=== PATIENT | female | born 1960 | race Caucasian/White ===

== ENCOUNTER → 2020-09-19 10:06 | Outpatient (BNVA) | payer OTHER, SELFPAY | PROVIDERS: Visit Provider Nurse Practitioner Family | DX: I42.9 Cardiomyopathy, unspecified (principal); I11.0 Hypertensive heart disease with heart failure; I50.20 Unspecified systolic (congestive) heart failure; E66.9 Obesity, unspecified; Z68.33 Body mass index [BMI] 33.0-33.9, adult; E11.9 Type 2 diabetes mellitus without complications; Z71.3 Dietary counseling and surveillance | CPT/HCPCS: 99212 ==

== ENCOUNTER → 2021-02-05 08:19 | Outpatient (REF) | payer OTHER, SELFPAY ==
--- NOTE | 2021-02-05 08:23 | CA_ITS ---
Transthoracic Echocardiogram Patient (Last, First, Middle): Maria L Guy, Gender: Female Date of : 1960 Age: 61 Procedure Date: 02/05/2021 Procedure Type: Transthoracic Echocardiogram Location: OP Height: 162.56 cm Weight: 88. kg BSA: 1.93 m2 Heart Rate: bpm BP: 120 / 77 mmHg Metal Framer: JEYSON Referring MD: Thelma Wade ADMEASURER-Walter Symptoms: I42.9 - Cardiomyopathy, unspecified Conclusions: - 1. Low normal LV systolic function with mild LVH with impaired relaxation filling pattern 2. Mildly dilated left atrium 3. Normal cardiac valvular Doppler is 4. Mildly dilated ascending aorta 5. No pericardial effusion Findings Left Ventricle Normal left ventricular cavity size. There is mildly increased left ventricular wall thickness. The left ventricular systolic function is low normal. The visually estimated ejection fraction is between 50-55%. Spectral Doppler is indicative of an impaired relaxation filling pattern. E/E prime ratio is between 8 and 15 consistent with indeterminate filling pressures. Right Ventricle Normal right ventricular cavity size and systolic function. Atria The left atrium is mildly dilated. Interatrial shunt cannot be excluded. The right atrium is normal in size. Aortic Valve Normal aortic valve structure and function. There is no aortic valve stenosis. There is no aortic valve regurgitation. Mitral Valve There is mild anterior and posterior mitral leaflet thickening. There is trace mitral valve regurgitation. There is no mitral valve stenosis. Pulmonic Valve The pulmonic valve was not well visualized. Tricuspid Valve Likely normal tricuspid valve structure and function. Tricuspid regurgitation envelope is inadequate for calculation of right ventricular systolic pressure. Great Vessels The pulmonary artery was not well visualized. There is mild dilatation of the ascending aorta measuring 3.90 cm. Venous The inferior vena cava is normal in size and collapses greater than 50% with inspiration. Pericardium/Pleural There is no evidence of pericardial effusion. Prior Study Comparison No significant change compared to prior study dated: 02/19/2020. Measurements 2D Linear Measurements RVIDd: 3.27 RVIDd Index: 1.69 IVSd: 1.25 0.6-0.9/0.6-1.0 cm LVIDd: 4.68 3.9-5.3/4.2-5.9 cm LVIDd Index: 2.42 2.4-3.2/2.2-3.1 cm/m2 LVIDs: 3.12 2.0-3.6 cm LVPWd: 1.35 0.7-1.1 cm Ao Root: 2.80 2.1-3.5 cm LA Diam: 4.50 2.7-3.8/3.0-4.0 cm LAIDs Index: 2.33 1.5-2.3 cm/m2 LV Mass: 316.54 67-162/88-224 g LV Mass Index: 164.01 43-95/49-115 g/m2 LVOT Diam: 2.20 3.0+(-)1.3 cm 2D Systolic Function EF 4C: 50.70 >55% EF 2C: 55.70 >55% Mitral Valve MV Pk E: 0.54 MV PK A: 0.74 MV Decel Time: 280.00 E/A: 0.70 E'Lateral: 6.85 E'Medial: 3.26 E/E' Med: 16.70 E/E' Lat: 7.90 Aortic Valve AoV Pk William: 1.29 AoV Mn William: 0.93 AoV VTI: 0.23 AoV Pk Grad: 7.00 Aov Mn Grad: 4.00 LIZ Cont.VTI: 2.42 LVOT LVOT Pk William: 0.80 LVOT Mn William: 0.54 LVOT VTI: 0.14 LVOT Pk Grad: 3.00 LVOT Mn Grad: 1.00 LVOT Diam: 2.20 LVOT Area: 3.80 Diastolic Function MV Pk E: 0.54 MV Pk A: 0.74 E/A: 0.70 E'Medial: 3.26 E/E' Med: 16.70 E' Laterial: 6.85 E/E' Lat: 7.90 Right Ventricle TAPSE (mm): 17.00 TVS' William: 9.90 Tricuspid Valve RA Press: 3.00 Great Vessels Aorta Ao Root-2D: 2.80 2.0-3.7 cm Ao Asc: 3.90 2.1-3.4 cm Ao Arch: 2.50 Updated in Other Vendor System with Status of Final Donte Bautista MD electronically signed on 02/07/2021 9:08:13 AM with status of Final
== END ==
LOC: HO.CARD 08:19
PROVIDERS: Visit Provider Nurse Practitioner Family
DX: I42.9 Cardiomyopathy, unspecified (principal)
CPT/HCPCS: 93306

== ENCOUNTER → 2021-03-24 10:17 | Outpatient (BNVA) | payer OTHER, SELFPAY | PROVIDERS: PCP Family Medicine; Referring Provider Family Medicine; Visit Provider Internal Medicine Cardiovascular Disease | DX: I42.9 Cardiomyopathy, unspecified (principal); I50.20 Unspecified systolic (congestive) heart failure | CPT/HCPCS: 93005; 99212 ==

== ENCOUNTER 2021-03-26 09:15 | Outpatient (REF) | payer OTHER, SELFPAY ==
[2021-03-26 11:51] LABS: Anion Gap 17 (12-20); Blood Urea Nitrogen 17 mg/dL (9-16); Calcium 9.9 mg/dL (8.4-10.2); Carbon Dioxide 25 mmol/L (22-29); Chloride 96 mmol/L (96-108); Estimated Glomerular Filt Rate > 60; Glucose Random 458 mg/dL (60-115); Potassium 4.8 mmol/L (3.3-5.1); Sodium 133 mmol/L (135-145)
== END 2021-03-26 09:16 | disposition home or self-care (01) ==
LOC: HO.LAB 09:15
PROVIDERS: PCP Family Medicine; Visit Provider Internal Medicine Cardiovascular Disease
DX: I42.9 Cardiomyopathy, unspecified (principal)
CPT/HCPCS: 36415; 80048

== ENCOUNTER 2024-01-03 01:12 | Inpatient (IN) | payer OTHER, SELFPAY ==
[2024-01-03] VITALS (26 sets, daily range): BP systolic 60–142; BP diastolic 34–79; PULSE 86–118; RESP 12–20; TEMP 36.6–37.8; O2SAT 80–97; BMI 31.7; BMI 33.1
--- NOTE | 2024-01-03 | ECG_ITS ---
Test Reason : TACKY Blood Pressure : / mmHG Vent. Rate : 109 BPM Atrial Rate : 109 BPM P-R Int : 168 ms QRS Dur : 122 ms QT Int : 370 ms P-R-T Axes : 035 -68 090 degrees QTc Int : 498 ms Sinus tachycardia Possible Left atrial enlargement Left anterior fascicular block Left ventricular hypertrophy with QRS widening ( Abilio product ) Nonspecific ST abnormality Abnormal ECG When compared with ECG of 03-JUL-2016 17:03, Premature ventricular complexes are no longer Present Referred By: Generic ED Physician Electronically Signed By:Robbie Beyer
--- NOTE | ~2024-01-03 | XR_ITS ---
EXAMINATION: XR CHEST CLINICAL INFORMATION: Right chest/flank pain, rule out pneumonia COMPARISON: 07/03/2016 TECHNIQUE: Frontal view of the chest was obtained. FINDINGS: The lungs are hypoinflated. No focal consolidation is seen. No evidence of pneumothorax, significant pleural effusion, or overt pulmonary edema. Cardiomediastinal silhouette remains enlarged though may be accentuated due to low lung volumes. No acute osseous findings are seen. XR/XR chest 1V IMPRESSION: Low lung volumes without focal consolidation. Enlarged cardiomediastinal silhouette which may be accentuated due to low lung volumes.
--- NOTE | ~2024-01-03 | CT_ITS ---
EXAMINATION: CT ABDOMEN AND PELVIS WITHOUT IV CONTRAST CLINICAL INFORMATION: Right flank pain COMPARISON: None TECHNIQUE: Multiple axial images were obtained from the superior aspect of the liver through the pubic symphysis without intravenous contrast. Images were evaluated on independent dedicated 3-D workstation and 3-D images were reconstructed with concurrent radiologist supervision and subsequently interpreted. Oral contrast was not administered. This CT examination was performed using dose optimization techniques as appropriate, variously including the following: *Automated exposure control *Adjustment of mA and/or kV according to patient size (this includes techniques or standardized protocols for targeted exams where dose is matched to indication/reason for exam; i.e. extremities or head) *Use of iterative reconstruction technique DLP: 665 mGy-cm FINDINGS: LUNG BASES: The visualized lung bases are clear. CARDIOMEDIASTINUM: The visualized heart is normal in size without pericardial effusion. No coronary artery calcification. LIVER: Enlarged measuring 20 cm in the midclavicular line. Homogeneous in attenuation. GALLBLADDER: Ill-defined borders of the gallbladder is felt to be related to respiratory motion artifact. No cholelithiasis. BILIARY SYSTEM: No intrahepatic or extrahepatic biliary dilation. PANCREAS: Homogeneous in attenuation. SPLEEN: Normal in size. GENITOURINARY: Asymmetric enlargement of the right kidney. Right hydroureter with periureteral ureteral stranding throughout its entire course. No perinephric stranding. No perinephric fluid collection. No renal calculi. No renal calculi or hydroureteronephrosis on the left. Urinary bladder fluid-filled. ADRENAL GLANDS: Unremarkable. REPRODUCTIVE: Anteverted uterus. No solid adnexal masses. GASTROINTESTINAL: Hiatal hernia. The visualized alimentary tract is normal in course. No evidence of obstruction. APPENDIX: The appendix is not visualized; however, no pericecal inflammatory changes are seen in the right lower quadrant. PERITONEUM: No pneumoperitoneum. No intra-abdominal fluid collection. VASCULATURE: No abdominal aortic aneurysm. LYMPH NODES: No pathologically enlarged abdominal or pelvic lymph nodes. SOFT TISSUES/MUSCULOSKELETAL: There is no acute fracture or significant focal osseous lesion. CT/CT abdomen pelvis wo IV con IMPRESSION: 1. Right asymmetric hydroureter with periureteral stranding. No calcified obstructing calculus identified. 2. Hepatomegaly. Fleischner guidelines were followed.
--- NOTE | ~2024-01-03 | XR_ITS ---
EXAMINATION: XR CHEST CLINICAL INFORMATION: Hypoxia COMPARISON: Portable chest 01/03/2024 1:55 AM TECHNIQUE: AP upright portable view of the chest was obtained. 12:12 PM FINDINGS: The lungs are hypoinflated. The patient is tilted. No evidence of pneumothorax. The cardiomediastinal silhouette is without significant interval change. No focal consolidation or interstitial pulmonary edema is seen. There is no overt pleural effusion. No acute osseous abnormality. XR/XR chest 1V IMPRESSION: Low lung volumes without focal consolidation. No significant change in the cardiomediastinal silhouette.
--- NOTE | 2024-01-03 01:26 | ED_ITS ---
HPI - General Adult General Chief complaint: General Medical Stated complaint: NAUSEA/VOMITTING Time Seen by Provider: 01/03/24 01:26 Source: patient Mode of arrival: EMS Limitations: no limitations History of Present Illness ED Provider: Dr. George Castillo HPI narrative: 63-year-old female with a history of obesity, diabetes mellitus, hypertension, nonischemic cardiomyopathy, who presents emergency department by ambulance for evaluation of nausea, vomiting, right flank pain x3 days. The patient states that she has had intermittent, right flank pain that feels like someone is punching her in the back. The pain is 8/10. The patient had nausea with multiple episodes of vomiting over the last 3 days. She states that she has not been able to hold down food or fluid. Patient states she had loose stools but no diarrhea. She had subjective fever but no chills. She denied frequency, urgency or dysuria. She denied rhinorrhea, sore throat, cough, chest pain, shortness of breath or dyspnea on exertion. She has not noted any dark, black or bloody stools. Patient states she was feeling very weak and she believes that she was very dehydrated. The patient has a history of hypertension and diabetes but she states she is not taking any medications for these conditions. She states she only takes aspirin. Point of care glucose was 553. Related Data Home Medications ?Medication ?Instructions ?Recorded ?Confirmed ketorolac 0.5 % eye drops drp ophthalmic (eye) 03/26/21 Previous Rx's ?Medication ?Instructions ?Recorded spironolactone 25 mg tablet 25 mg PO DAILY #30 tabs 11/04/21 carvedilol 12.5 mg tablet 12.5 mg PO BID 90 days #180 tabs 12/09/21 valsartan 160 mg tablet 320 mg (2 x 160 mg) PO DAILY #180 05/11/22 tabs Allergies Allergy/AdvReac Type Severity Reaction Status Date / Time codeine [CODEINE] Allergy Unknown UNKNOWN Verified 01/03/24 01:22 metoprolol [Toprol XL] Allergy Unknown Unknown Verified 01/03/24 01:22 lisinopril Allergy Unknown Verified 01/03/24 01:23 mold Allergy runny Verified 01/03/24 01:22 nose, watery eyes ragweed pollen Allergy runny Verified 01/03/24 01:22 nose, watery eyes Codeine Allergy Unknown Unknown Uncoded 01/03/24 01:22 codine Allergy Unknown Unknown Uncoded 01/03/24 01:22 Cucumber Allergy Unknown Unknown Uncoded 01/03/24 01:22 Review of Systems 2 Review of Systems: Yes all other systems are reviewed and are negative [facility] Past Medical History [facility] Narrative: Social history: She denies tobacco and alcohol use. She states she smokes marijuana occasionally. Medical History (Updated 01/03/24 @ 04:37 by George Castillo MD) Obesity Systolic heart failure Diabetes HTN (hypertension) Cardiomyopathy Surgical History (Updated 03/26/21 @ 10:26 by [employer]) History of appendectomy History of tonsillectomy History of hernia surgery Family History Family History Father Cancer Mother No problems noted. Social History Social History (Updated 03/26/21 @ 10:27 by [employer]) Household Members: Spouse Housing: Apartment Patient Tobacco Use Status: Never used Tobacco Smoked in Last 30 Days: No e-Cigarette/Vaping Use: Never Used Use of substances other than those prescribed or required for medical reasons: No Advance Directives: No Advance Directives Information Provided: Yes Current occupational status: unemployed Physical Exam ED Vital Signs: Vital Signs - 24 hr 01/03/24 01:20 01/03/24 02:25 01/03/24 02:26 Temperature 99 F Pulse Rate 108 H 105 H Respiratory Rate 15 20 Blood Pressure 128/66 108/61 Pulse Oximetry 93 84 L 95 Oxygen Delivery Method Room Air Room Air Nasal Cannula Oxygen Flow Rate 2 01/03/24 02:36 01/03/24 02:51 01/03/24 03:06 Temperature Pulse Rate 104 H 105 H 101 H Respiratory Rate 12 20 15 Blood Pressure 114/55 L 113/66 123/74 Pulse Oximetry 96 93 97 Oxygen Delivery Method Nasal Cannula Nasal Cannula Nasal Cannula Oxygen Flow Rate 2 2 2 01/03/24 03:21 01/03/24 03:36 01/03/24 03:51 Temperature 98.9 F Pulse Rate 106 H 104 H 105 H Respiratory Rate 15 20 18 Blood Pressure 131/76 138/76 116/59 L Pulse Oximetry 96 96 96 Oxygen Delivery Method Nasal Cannula Nasal Cannula Nasal Cannula Oxygen Flow Rate 2 2 2 01/03/24 04:01 Temperature Pulse Rate Respiratory Rate Blood Pressure 115/53 L Pulse Oximetry Oxygen Delivery Method Oxygen Flow Rate BMI result Body Mass Index 31.7 Vital signs revealed elevated heart rate of 108 otherwise unremarkable Exam: General: Awake, alert in no distress, answers all questions appropriately Head: Normocephalic, atraumatic EENT: PERRL, Lids normal, sclera normal, conjunctiva normal, nose normal , ears normal, throat without erythema or exudates, mouth revealed very dry mucous membranes Neck: Supple, no adenopathy Lung: breath sounds symmetric, no wheezing, rales or rhonchi Chest: symmetric movement, nontender Heart: regular rate and rhythm, normal S1, S2 no murmurs or rubs Abdomen: soft, non-tender, nondistended, normal bowel sounds Back: no vertebral tenderness, no CVAT Extremities: no deformities, moves all extremities symmetrically Neuro: Awake, alert, oriented, normal speech, cranial nerves intact, moves all extremities symmetrically Psych: Pleasant, cooperative Medications Administered Discontinued Medications Generic Name Dose Route Start Last Admin Trade Name Jamesq PRN Reason Stop Dose Admin Lactated Ringer's 1,000 mls @ 999 mls/hr 01/03/24 01:43 01/03/24 03:49 Lr IV 01/03/24 02:43 Infused .Q1H1M ONE Infusion Lactated Ringer's 1,000 mls @ 999 mls/hr 01/03/24 01:43 01/03/24 03:49 Lr IV 01/03/24 02:43 Infused .Q1H1M ONE Infusion Ceftriaxone Sodium 1 gm/ 50 mls @ 100 mls/hr 01/03/24 02:29 01/03/24 03:04 Sodium Chloride IV 01/03/24 02:58 Infused ONCE ONE Infusion Lactated Ringer's 1,000 mls @ 999 mls/hr 01/03/24 03:15 01/03/24 03:49 Lr IV 01/03/24 04:15 Infused .Q1H1M CHRIS Infusion Insulin Human Regular 10 unit 01/03/24 01:44 01/03/24 01:59 Insulin Regular, Human 100 Unit/Ml 10 Ml Vial IVPUSH 01/03/24 01:45 10 unit ONCE ONE Administration Insulin Human Regular 10 unit 01/03/24 03:04 01/03/24 03:14 Insulin Regular, Human 100 Unit/Ml 10 Ml Vial IVPUSH 01/03/24 03:05 10 unit ONCE ONE Administration Ketorolac Tromethamine 15 mg 01/03/24 01:41 01/03/24 02:00 Ketorolac Tromethamine 15 Mg/Ml Vial IVPUSH 01/03/24 01:42 15 mg ONCE STA Administration Ondansetron HCl 4 mg 01/03/24 01:41 01/03/24 02:03 Ondansetron Hcl 4 Mg/2 Ml Vial IVPUSH 01/03/24 01:42 4 mg ONCE ONE Administration Medical Decision Making Medical Decision Making MDM Narrative: 63-year-old female with a history of obesity, diabetes mellitus, hypertension, nonischemic cardiomyopathy, who presents emergency department by ambulance for evaluation of nausea, vomiting, right flank pain x3 days. Patient has had multiple episodes of vomiting over the past 3 days and not able to hold down any food or fluid. She has also had intermittent right flank pain x3 days with no frequency, urgency or dysuria. She had subjective fevers. She has been feeling very weak as well. The patient is not taking any medications for hypertension or diabetes and states she only takes aspirin. Patient's point of care glucose was 553. Physical examination revealed elevated heart rate otherwise normal vital signs . The patient has very dry mucous membranes with no abdominal tenderness or CVA tenderness. 02:57: Differential diagnosis: ?Includes but is not limited to hyperglycemia, diabetic ketoacidosis, starvation ketosis, volume depletion, dehydration, kidney stone, urinary tract infection, pneumonia, electrolyte abnormalities, anemia\ Following evaluation was ordered: CBC, CMP, lactic acid, lipase, beta hydroxybutyrate, magnesium, PTT, VBG, troponin, urinalysis, COVID-19, influenza, RSV, blood cultures x2 chest x-ray one view, CT scan of the abdomen pelvis without IV contrast Patient was initially treated with the following: Lactated Ringer's IV x2 L, Toradol 15 mg IV, Zofran 4 mg IV, insulin 10 units IV, Course: 02:57 My interpretation patient's laboratory evaluation is as follows: WBC elevated 18,700 with a left shift 92 neutrophils and 4 lymphocytes. VBG revealed a normal pH of 7.40 and a normal pCO2 of 32 with a slightly low bicarb of 20. Sodium was low 133 secondary to high glucose. CO2 low 19. Anion gap elevated at 27. BUN and creatinine were elevated 19 and 1.43. Serum glucose elevated 637. Lactic acid was elevated 2.3. This lactic acid is elevated secondary to starvation ketosis and not due to an infectious process. Beta hydroxybutyrate was elevated at 5.20. COVID-19, influenza and RSV were negative. Troponin was detectable but not elevated at 6.8. Chest x-ray did reveal cardiomegaly with loss of the left diaphragm however I do not think that she has pneumonia based on her clinical symptoms. CT scan did reveal right asymmetry hydroureter with periureteral stranding but no calcification noted. It is possible the patient may have passed a kidney stone. Patient did receive ceftriaxone 1 g IV, we have not been able to collect a urine yet but this may be due to dehydration/volume depletion. Repeat point of care glucose was 553 therefore I ordered a third lactated Ringer's 1 L IV and regular insulin 10 units IV. 04:19 Patient's repeat troponin was 7.1 which was not a significant change. Patient's repeat BMP revealed a glucose of 472. Patient's anion gap improved from 27 to 21. Patient's creatinine also improved to 1.19. Given these improvements,, I ordered insulin 10 units IV and repeat point of care glucose in 1 hours. I also ordered maintenance lactated Ringer's at 125 cc/hour. Admission/Observation Consideration of admission/observation: Escalation of care including admission/observation considered Lab Data MDM Lab Attestation statement: I reviewed the patient's lab results. 01/03/24 02:07 01/03/24 03:50 Labs: Lab Results 01/03/24 01/03/24 01/03/24 Range/Units 01:19 02:07 02:12 WBC 18.7 H (4.8-10.8) X10*3/uL RBC 4.72 (4.20-5.50) X10*6/uL Hgb 13.6 (12.0-16.0) g/dl Hct 40.3 (37.0-47.0) % MCV 85.4 (80.0-98.0) fL MCH 28.8 (27.0-33.0) pg MCHC 33.7 (31.0-35.0) g/dl RDW 15.4 (11.0-16.0) % Plt Count 282 (160-400) X10*3/uL MPV 10.2 (9.4-12.3) fL Immature Gran % (Auto) 1.1 H (0.0-0.4) % Neut % (Auto) 92.2 H (45-73) % Lymph % (Auto) 4.0 L (20-40) % Mckean % (Auto) 2.4 (2-11) % Eos % (Auto) 0.0 (0-4) % Baso % (Auto) 0.3 (0-2) % Lymph # (Auto) 0.8 L (1.2-4.9) X10*3/uL Mckean # (Auto) 0.5 (0.1-1.2) X10*3/uL Eos # (Auto) 0.0 (0.0-0.4) X10*3/uL Baso # (Auto) 0.1 (0.0-0.2) X10*3/uL Abs Immat Gran (auto) 0.20 H (0.00-0.03) X10*3/uL Absolute Neuts (auto) 17.3 H (2.0-8.3) x10*3/uL Absolute Nucleated RBC 0.000 (0.0-0.012) X10*3/uL Nucleated RBC % (auto) 0.0 (0.0-0.2) /100WBC Smear Tech's Comments VERIFIED APTT 26.3 (26.0-36.8) SEC VBG pH 7.40 (7.32-7.43) VBG pCO2 32 mmHg VBG pO2 57 mmHg VBG HCO3 20 L (22-26) mmol/L VBG O2 Saturation 86.0 % VBG Base Excess -3.7 mmol/L Sodium 133 L (135-145) mmol/L Potassium 4.2 (3.3-5.1) mmol/L Chloride 91 L (96-108) mmol/L Carbon Dioxide 19 L (22-29) mmol/L Anion Gap 27 H (12-20) BUN 19 H (9-16) mg/dL Creatinine 1.43 H (0.5-1.4) mg/dL Estim Creat Clear Calc 43.3 Estimated GFR 37 POC Glucose 581 H* (60-115) mg/dL Random Glucose 637 H* (60-115) mg/dL Lactic Acid 2.3 H* (0.5-2.0) mmol/L Calcium 9.4 (8.4-10.2) mg/dL Magnesium 1.8 (1.6-2.6) mg/dL Total Bilirubin 0.6 (0.0-1.0) mg/dL AST 10 (5-31) U/L ALT 8 (0-31) U/L Alkaline Phosphatase 124 H (39-117) U/L Troponin I High Sens 6.8 (<3.5-17.0) ng/L Total Protein 7.3 (6.5-8.0) g/dL Albumin 3.5 (3.5-5.0) g/dL Lipase 11 (8-78) U/L Beta-Hydroxybutyrate 5.20 H (0.02-0.27) mmol/L Influenza Type A (PCR) (Negative) Influenza Type B (PCR) (Negative) RSV RNA Qual (PCR) (Negative) SARS-CoV-2 RNA (RT-PCR) (Negative) 01/03/24 01/03/24 Range/Units 02:16 03:50 WBC (4.8-10.8) X10*3/uL RBC (4.20-5.50) X10*6/uL Hgb (12.0-16.0) g/dl Hct (37.0-47.0) % MCV (80.0-98.0) fL MCH (27.0-33.0) pg MCHC (31.0-35.0) g/dl RDW (11.0-16.0) % Plt Count (160-400) X10*3/uL MPV (9.4-12.3) fL Immature Gran % (Auto) (0.0-0.4) % Neut % (Auto) (45-73) % Lymph % (Auto) (20-40) % Mckean % (Auto) (2-11) % Eos % (Auto) (0-4) % Baso % (Auto) (0-2) % Lymph # (Auto) (1.2-4.9) X10*3/uL Mckean # (Auto) (0.1-1.2) X10*3/uL Eos # (Auto) (0.0-0.4) X10*3/uL Baso # (Auto) (0.0-0.2) X10*3/uL Abs Immat Gran (auto) (0.00-0.03) X10*3/uL Absolute Neuts (auto) (2.0-8.3) x10*3/uL Absolute Nucleated RBC (0.0-0.012) X10*3/uL Nucleated RBC % (auto) (0.0-0.2) /100WBC Smear Tech's Comments APTT (26.0-36.8) SEC VBG pH (7.32-7.43) VBG pCO2 mmHg VBG pO2 mmHg VBG HCO3 (22-26) mmol/L VBG O2 Saturation % VBG Base Excess mmol/L Sodium 137 (135-145) mmol/L Potassium 3.6 (3.3-5.1) mmol/L Chloride 97 (96-108) mmol/L Carbon Dioxide 23 (22-29) mmol/L Anion Gap 21 H (12-20) BUN 18 H (9-16) mg/dL Creatinine 1.19 (0.5-1.4) mg/dL Estim Creat Clear Calc 51.9 Estimated GFR 46 POC Glucose (60-115) mg/dL Random Glucose 472 H* (60-115) mg/dL Lactic Acid (0.5-2.0) mmol/L Calcium 8.5 D (8.4-10.2) mg/dL Magnesium (1.6-2.6) mg/dL Total Bilirubin (0.0-1.0) mg/dL AST (5-31) U/L ALT (0-31) U/L Alkaline Phosphatase (39-117) U/L Troponin I High Sens 7.1 (<3.5-17.0) ng/L Total Protein (6.5-8.0) g/dL Albumin (3.5-5.0) g/dL Lipase (8-78) U/L Beta-Hydroxybutyrate (0.02-0.27) mmol/L Influenza Type A (PCR) NEGATIVE (Negative) Influenza Type B (PCR) NEGATIVE (Negative) RSV RNA Qual (PCR) NEGATIVE (Negative) SARS-CoV-2 RNA (RT-PCR) NEGATIVE (Negative) Independent Interpretation I performed an independent interpretation of an: EKG and Plain X-Ray Interpretation: My independent interpretation of the patient's 12 EKG done at 01:27 hours is as follows: Sinus tachycardia with a rate of 109, normal [place] interval, prolonged QRS interval of 122 milliseconds, prolonged QTC interval of 498 milliseconds, Q- wave in lead 2, no ST segment elevation, less than [address] segment depression in leads 1 and aVL, no significant T-wave abnormalities, no PACs, no PVCs My interpretation patient's one-view chest x-ray is as follows: Large cardiac silhouette with loss of left diaphragm silhouette, no CHF Radiology Impression Discussion of test interpretation with radiology: I have reviewed the radiologist's reading. Radiologist Impression: XR chest 1V IMPRESSION: Low lung volumes without focal consolidation. Enlarged cardiomediastinal silhouette which may be accentuated due to low lung volumes. Dictated By: Allen Topete MD Critical Care Time Critical Care Time Critical Care Time: Yes Total Critical Care Time: 80 Attestation: Critical Care: The patient was critically ill with a high probability of imminent or life threatening deterioration. I spent greater than 30 minutes of discontinuous time evaluating the patient,delivering critical care at the bedside, discussing and evaluating pertinent data with consultants. Critical care time does not include time spent performing separately billable procedures or teaching. Total time spent performing critical care was 80 minutes. Discharge Plan Discharge Patient Disposition: Admitted As Inpatient Prescriptions: No Action spironolactone 25 mg tablet 25 mg PO DAILY Qty: 30 5RF carvedilol 12.5 mg tablet 12.5 mg PO BID 90 Days Qty: 180 3RF valsartan 160 mg tablet 320 mg PO DAILY Qty: 180 1RF Rx Instructions: OVERDUE FOR FOLLOW-UP WITH Dr. Bautista. CALL [phone] to schedule appt for 2022 to continue receiving refills. Print Language: Latvian
[2024-01-03 01:28] LABS: Glucose, Whole Blood 581 mg/dL (60-115)
[2024-01-03] MEDS: Insulin Regular, Human 100 UNIT/ML 10 ML VIAL 10 UNIT IVPUSH ×3 (01:59→04:28)
[2024-01-03] MEDS: Ketorolac Tromethamine 15 MG/ML VIAL IVPUSH ×2 (02:00→08:06)
[2024-01-03] MEDS: Lactated Ringers 1,000 ML 999 ML IV ×3 (02:03→03:11)
[2024-01-03] MEDS: ondansetron HCL 4 MG/2 ML VIAL IVPUSH ×2 (02:03→19:43)
--- NOTE | 2024-01-03 02:15 | PC.NURSE ---
pt biba from home reporting n/v x 3 days, R. flank/lower back pain. pt denies injury. pt denies cp/sob/diarrhea. reporting no hx of diabetes, does not take any meds at home. ems reports elevated BGL, on arrival poc obtained and reading 581. made aware. pt has 18g IV L. AC received approx 400mL NS and 4mg Zofran via ems. pt medicated per aug, md ok another dose of zofran as pt continues to report nausea. IVF infusing. ivp insulin given per aug. blood work obtained and sent to lab. ekg obtained. pt is axox4 speaking full clear sentences. skin wpd. sinus tachy on monitor. call burleson within reach. plan of care ongoing.
[2024-01-03 02:18] LABS: Basophils Absolute Auto 0.1 X10*3/uL (0.0-0.2); Basophils Percent Auto 0.3 % (0-2); Hematocrit 40.3 % (37.0-47.0); Hemoglobin 13.6 g/dl (12.0-16.0); Imm Gran Pct Auto 1.1 % (0.0-0.4); Lymphocytes Absolute Auto 0.8 X10*3/uL (1.2-4.9); MANUAL DIFF FLAG SCAN; Mean Corpuscular HGB Conc 33.7 g/dl (31.0-35.0); Mean Corpuscular Hemoglobin 28.8 pg (27.0-33.0); Mean Corpuscular Volume 85.4 fL (80.0-98.0); Mean Platelet Volume 10.2 fL (9.4-12.3); Monocytes Absolute Auto 0.5 X10*3/uL (0.1-1.2); Monocytes Percent Auto 2.4 % (2-11); Neutrophils Absolute Auto 17.3 x10*3/uL (2.0-8.3); Neutrophils Percent Auto 92.2 % (45-73); Platelet Count 282 X10*3/uL (160-400); Red Blood Count 4.72 X10*6/uL (4.20-5.50); Red Cell Distribution Width 15.4 % (11.0-16.0); SCAN SMEAR FLAG 1; Venous Blood Gas Refer to POC result; White Blood Count 18.7 X10*3/uL (4.8-10.8)
[2024-01-03 02:25] LABS: VBG Base Excess -3.7 mmol/L; VBG HCO3 20 mmol/L (22-26); VBG pCO2 32 mmHg; VBG pO2 57 mmHg
--- NOTE | 2024-01-03 02:25 | PC.NURSE ---
pt is axox4 speaking full clear sentences however o2 on RA 84%. pt placed on 2L NC and sats up to 95%. MD aware. pt denies cp/sob. diminished lung sounds to R. lower lobe.
[2024-01-03 02:29] LABS: Partial Thromboplastin Time 26.3 SEC (26.0-36.8)
[2024-01-03] MEDS: cefTRIAXone sodium 1 GM in 0.9 % Sodium Chloride 50 ML IV (02:34)
[2024-01-03 02:36] LABS: Alanine Aminotransferase 8 U/L (0-31); Albumin Level 3.5 g/dL (3.5-5.0); Alkaline Phosphatase 124 U/L (39-117); Anion Gap 27 (12-20); Aspartate Amino Transferase 10 U/L (5-31); Bilirubin Total 0.6 mg/dL (0.0-1.0); Blood Urea Nitrogen 19 mg/dL (9-16); Calcium 9.4 mg/dL (8.4-10.2); Carbon Dioxide 19 mmol/L (22-29); Chloride 91 mmol/L (96-108); Creatinine Clr Calc Pharmacy 43.3; Estimated Glomerular Filt Rate 37; Glucose Random 637 mg/dL (60-115); Lactic Acid 2.3 mmol/L (0.5-2.0); Lipase 11 U/L (8-78); Magnesium 1.8 mg/dL (1.6-2.6); Potassium 4.2 mmol/L (3.3-5.1); SLIDE REVIEW VERIFIED; Sodium 133 mmol/L (135-145); Total Protein 7.3 g/dL (6.5-8.0)
[2024-01-03 02:39] LABS: Troponin-I High Sensitivity 6.8 ng/L (<3.5-17.0)
--- NOTE | 2024-01-03 02:45 | PC.NURSE ---
IV abx incompatible with ivf. 2nd IV established to R. forearm. ivf and abx infusing per mar. critical lab values reported to
[2024-01-03 02:59] LABS: Influenza A PCR NEGATIVE (Negative); Influenza B PCR NEGATIVE (Negative); Resp Syncy Virus RNA Qual PCR NEGATIVE (Negative); SARS COV2 PCR INHOUSE NEGATIVE (Negative)
[2024-01-03 04:13] LABS: Reflex Lactate? Lactic Acid Added
[2024-01-03 04:15] LABS: Anion Gap 21 (12-20); Blood Urea Nitrogen 18 mg/dL (9-16); Calcium 8.5 mg/dL (8.4-10.2); Carbon Dioxide 23 mmol/L (22-29); Chloride 97 mmol/L (96-108); Creatinine Clr Calc Pharmacy 51.9; Estimated Glomerular Filt Rate 46; Glucose Random 472 mg/dL (60-115); Potassium 3.6 mmol/L (3.3-5.1); Sodium 137 mmol/L (135-145); Troponin-I High Sensitivity 7.1 ng/L (<3.5-17.0)
[2024-01-03] MEDS: Lactated Ringers 1,000 ML 125 ML IV (04:35)
[2024-01-03 04:41] LABS: Glucose, Whole Blood 492 mg/dL (60-115)
[2024-01-03 04:41] LABS: Glucose, Whole Blood 581 mg/dL (60-115)
[2024-01-03 04:41] LABS: Glucose, Whole Blood 505 mg/dL (60-115)
[2024-01-03 04:41] LABS: Glucose, Whole Blood 462 mg/dL (60-115)
[2024-01-03 04:41] LABS: Glucose, Whole Blood 454 mg/dL (60-115)
--- NOTE | 2024-01-03 04:51 | PM.IMHP ---
History of Present Illness Date of Service: 01/03/24 Attending physician on admission: Ramon Jackson Chief Complaint: Right flank pain Maria L Guy is a 63 years old woman with past medical history significant for type 2 diabetes mellitus and hypertension -not currently taking/using medication for this presents to the emergency department complaining of posterior round pain that started 2 days ago. She said that the pain has been on and off but tonight was very intense, 10/10. The pain does not radiate and is associated with multiple events of nonbloody vomiting and dizziness. She denied associated pain with urination, urinary frequency or bloody urine. She denies fever or chills. She has been taking aspirin at home without significant improvement of the pain. Denied being taking Tylenol or any other NSAIDs. Cardiopulmonary symptoms were denied. She denied tobacco smoking, alcohol abuse or illicit drug use. Abdominal surgery history is remarkable for appendectomy and hernia surgery. In the ED, she was found to have tachycardia. There is low-grade fever, 100.1. Systolic blood pressure has been over 90. Blood workup is remarkable for leukocytosis of 18.7. Hemoglobin and platelets are normal. PTT is 26.3. Blood glucose was initially 637. Initial bicarb was 19, most recent is 23. Anion gap was 27 initially, most recent one is 21. There are no other electrolyte imbalances. Lipase is normal. Creatinine is also improving from 1.43 to 1.19. Lactic acid is increasing 2.3 --> 3.5. Venous pH is 7.40. Troponin is negative x2. Beta hydroxybutyric is elevated, 5.2. Urinalysis consistent with urinary tract infection. Viral testing for COVID-19, influenza RSV is negative. CXR is negative. Abdominal pelvis CT scan with IV contrast showed right asymmetric treated with periureteral stranding (no obstructing renal calculi) and hepatomegaly. ED tx: LR 3 L bolus, ceftriaxone 1 g IV, ketorolac 15 mg IV, Zofran 4 mg IV, insulin R 30 units IV (total) Review of Systems Review of Systems: All 12 systems were reviewed and normal except as noted in HPI. [facility] Medical History (Updated 01/03/24 @ 06:10 by Ramon Jackson MD) Obesity Systolic heart failure Diabetes HTN (hypertension) Cardiomyopathy Family History Father Cancer Mother No problems noted. Surgical History (Updated 03/26/21 @ 10:26 by [place]) History of appendectomy History of tonsillectomy History of hernia surgery Social History (Updated 03/26/21 @ 10:27 by [employer] Jame) Household Members: Spouse Housing: Apartment Patient Tobacco Use Status: Never used Tobacco Smoked in Last 30 Days: No e-Cigarette/Vaping Use: Never Used Use of substances other than those prescribed or required for medical reasons: No Advance Directives: No Advance Directives Information Provided: Yes Current occupational status: unemployed Meds Allergies Allergy/AdvReac Type Severity Reaction Status Date / Time codeine [CODEINE] Allergy Unknown UNKNOWN Verified 01/03/24 01:22 metoprolol [Toprol XL] Allergy Unknown Unknown Verified 01/03/24 01:22 lisinopril Allergy Unknown Verified 01/03/24 01:23 mold Allergy runny Verified 01/03/24 01:22 nose, watery eyes ragweed pollen Allergy runny Verified 01/03/24 01:22 nose, watery eyes Codeine Allergy Unknown Unknown Uncoded 01/03/24 01:22 codine Allergy Unknown Unknown Uncoded 01/03/24 01:22 [place] Allergy Unknown Unknown Uncoded 01/03/24 01:22 Active Medications: Current Medications Lactated Ringer's (Lr) 1,000 mls @ 125 mls/hr IV .Q8H [facility] Stop: 01/03/24 12:29 Last Admin: 01/03/24 04:35 Dose: 125 mls/hr Lactated Ringer's (Lr) 1,000 mls @ 100 mls/hr IVCONT .Q10H [facility] Insulin Glargine (Insulin Glargine,Hum.Rec.Anlog 100 Unit/Ml 10 Ml Vial) 20 unit SUBCUT DAILY CHRIS Insulin Human Lispro (Insulin Lispro 100 Unit/Ml 3 Ml Vial) 10 unit SUBCUT ONCE STA Stop: 01/03/24 04:48 Home Medications ?Medication ?Instructions ?Recorded ?Confirmed ?Last Taken ?Type ketorolac 0.5 % eye drops drp ophthalmic (eye) 03/26/21 Unknown History Physical Exam Vital Signs and Narrative: Vital Signs: Last Vital Signs Temp 99 F 01/03/24 04:37 Pulse 105 H 01/03/24 04:37 Resp 20 01/03/24 04:37 BP 97/50 L 01/03/24 04:37 Pulse Ox 95 01/03/24 04:37 O2 Del Method Nasal Cannula 01/03/24 04:37 O2 Flow Rate 2 01/03/24 04:37 BMI result Body Mass Index 31.7 Constitutional - Awake and Alert, No apparent distress. Obese. Pleasant. Cooperative. HEENT - PERRLA, EOMI. Dry oral mucosa. Normal sclerae. Heart - S1S2, RRR, No murmur. Lungs - Normal lung expansion, Normal respiratory effort, No respiratory distress, CTA bilaterally Abdomen - NT / ND; +BS; No rebound or guarding - Right CVA tenderness Extremities - No calf tenderness bilaterally, no swelling Skin - Warm/Dry Neurological - Alert & oriented x3. No focal weakness grossly noted. Normal speech. Psychological - Appropriate affect Results Labs 01/03/24 02:07 01/03/24 03:50 Labs: Laboratory Results - last 24 hr 01/03/24 01/03/24 01/03/24 01:19 02:07 02:12 MCV 85.4 MCH 28.8 MCHC 33.7 RDW 15.4 Plt Count 282 MPV 10.2 Immature Gran % (Auto) 1.1 H Neut % (Auto) 92.2 H Lymph % (Auto) 4.0 L [place] % (Auto) 2.4 Eos % (Auto) 0.0 Baso % (Auto) 0.3 Lymph # (Auto) 0.8 L [place] # (Auto) 0.5 Eos # (Auto) 0.0 Baso # (Auto) 0.1 Abs Immat Gran (auto) 0.20 H Absolute Neuts (auto) 17.3 H Absolute Nucleated RBC 0.000 Nucleated RBC % (auto) 0.0 Smear Tech's Comments VERIFIED APTT 26.3 VBG pH 7.40 VBG pCO2 32 VBG pO2 57 VBG HCO3 20 L VBG O2 Saturation 86.0 VBG Base Excess -3.7 Anion Gap 27 H Estim Creat Clear Calc 43.3 Estimated GFR 37 POC Glucose 581 H* Random Glucose 637 H* Lactic Acid 2.3 H* Calcium 9.4 Magnesium 1.8 Total Bilirubin 0.6 AST 10 ALT 8 Alkaline Phosphatase 124 H Troponin I High Sens 6.8 Total Protein 7.3 Albumin 3.5 Lipase 11 Beta-Hydroxybutyrate 5.20 H Influenza Type A (PCR) Influenza Type B (PCR) RSV RNA Qual (PCR) SARS-CoV-2 RNA (RT-PCR) 01/03/24 01/03/24 01/03/24 02:16 02:27 03:01 MCV MCH MCHC RDW Plt Count MPV Immature Gran % (Auto) Neut % (Auto) Lymph % (Auto) [place] % (Auto) Eos % (Auto) Baso % (Auto) Lymph # (Auto) [place] # (Auto) Eos # (Auto) Baso # (Auto) Abs Immat Gran (auto) Absolute Neuts (auto) Absolute Nucleated RBC Nucleated RBC % (auto) Smear Tech's Comments APTT VBG pH VBG pCO2 VBG pO2 VBG HCO3 VBG O2 Saturation VBG Base Excess Anion Gap Estim Creat Clear Calc Estimated GFR POC Glucose 581 H* 505 H* Random Glucose Lactic Acid Calcium Magnesium Total Bilirubin AST ALT Alkaline Phosphatase Troponin I High Sens Total Protein Albumin Lipase Beta-Hydroxybutyrate Influenza Type A (PCR) NEGATIVE Influenza Type B (PCR) NEGATIVE RSV RNA Qual (PCR) NEGATIVE SARS-CoV-2 RNA (RT-PCR) NEGATIVE 01/03/24 01/03/24 01/03/24 03:33 03:50 03:59 MCV MCH MCHC RDW Plt Count MPV Immature Gran % (Auto) Neut % (Auto) Lymph % (Auto) [place] % (Auto) Eos % (Auto) Baso % (Auto) Lymph # (Auto) [place] # (Auto) Eos # (Auto) Baso # (Auto) Abs Immat Gran (auto) Absolute Neuts (auto) Absolute Nucleated RBC Nucleated RBC % (auto) Smear Tech's Comments APTT VBG pH VBG pCO2 VBG pO2 VBG HCO3 VBG O2 Saturation VBG Base Excess Anion Gap 21 H Estim Creat Clear Calc 51.9 Estimated GFR 46 POC Glucose 492 H* 462 H* Random Glucose 472 H* Lactic Acid Calcium 8.5 D Magnesium Total Bilirubin AST ALT Alkaline Phosphatase Troponin I High Sens 7.1 Total Protein Albumin Lipase Beta-Hydroxybutyrate Influenza Type A (PCR) Influenza Type B (PCR) RSV RNA Qual (PCR) SARS-CoV-2 RNA (RT-PCR) 01/03/24 04:29 MCV MCH MCHC RDW Plt Count MPV Immature Gran % (Auto) Neut % (Auto) Lymph % (Auto) [place] % (Auto) Eos % (Auto) Baso % (Auto) Lymph # (Auto) [place] # (Auto) Eos # (Auto) Baso # (Auto) Abs Immat Gran (auto) Absolute Neuts (auto) Absolute Nucleated RBC Nucleated RBC % (auto) Smear Tech's Comments APTT VBG pH VBG pCO2 VBG pO2 VBG HCO3 VBG O2 Saturation VBG Base Excess Anion Gap Estim Creat Clear Calc Estimated GFR POC Glucose 454 H* Random Glucose Lactic Acid Calcium Magnesium Total Bilirubin AST ALT Alkaline Phosphatase Troponin I High Sens Total Protein Albumin Lipase Beta-Hydroxybutyrate Influenza Type A (PCR) Influenza Type B (PCR) RSV RNA Qual (PCR) SARS-CoV-2 RNA (RT-PCR) Imaging Radiologist's Impressions: Impressions Abdomen/Pelvis CT 01/03/24 01:54 IMPRESSION: 1. Right asymmetric hydroureter with periureteral stranding. No calcified obstructing calculus identified. 2. Hepatomegaly. Fleischner guidelines were followed. Chest X-Ray 01/03/24 01:55 IMPRESSION: Low lung volumes without focal consolidation. Enlarged cardiomediastinal silhouette which may be accentuated due to low lung volumes. Assessment and Plan (1) Acute pyelonephritis: Status: Acute (2) Severe sepsis: Status: Acute (3) Uncontrolled type 2 diabetes mellitus with hyperglycemia: Status: Acute (4) Obesity: Qualifiers: Obesity type: due to excess calories Obesity classification: adult class 1 (BMI 30 - 34.9) Body mass index: BMI 31.0-31.9 Serious obesity comorbidity presence: with serious comorbidity Qualified Code(s): E66.09 - Other obesity due to excess calories; Z68.31 - Body mass index [BMI] 31.0-31.9, adult Status: Acute Plan Maria L Guy is a 63 y/o woman admitted with: Severe sepsis secondary to pyelonephritis/complicated UTI: Leukocytosis, tachycardia, lactic acidosis, UA + Abd pelvic -findings consistent with UTI. Admit to hospitalist service. Continue empiric IV antibiotic therapy with ceftriaxone. Continue IV fluids (pt has received total 3 L of LR in ED). Blood and urine culture obtained -will follow results. Continue to monitor lactic acid level. Nausea and vomiting, likely secondary to acute pyelonephritis. Continue IV fluids. Continue therapy with antiemetic therapy as needed. Lactic acidosis, trending up; secondary to above. Continue IV fluids, normal saline. Continue to monitor lactic acid level. Uncontrolled type 2 diabetes mellitus, no DKA. Continue IV fluids. Start therapy with Lantus 20 units subQ daily, 1st dose now and insulin sliding scale. BG monitoring before meals at bedtime. Diabetic diet. Check Hbg A1c. Patient will need diabetes mellitus education. History of essential hypertension, not taking anti-HTN meds at the moment. BP stable. Continue to monitor for now. Obesity, class 1. BMI 37.7 kg/m2. Encourage weight loss. DVT prophylaxis: Lovenox Code status: Full Patient will need hospitalization for at least 2 midnights for severe sepsis + pyelonephritis complicated with uncontrolled type 2 diabetes mellitus with IV fluids, empiric IV antibiotic therapy, insulin and close monitoring of vital signs and blood workup. Quality Stroke Does the patient have a stroke diagnosis?: No VTE Prior VTE?: No VTE Risk Level:: Medical - moderate - high VTE Device Contraindication: Treatment Not Indicated VTE Drug Contraindication: N/A - Med Ordered
[2024-01-03 04:55] LABS: ~Lactic Acid-LAB USE ONLY 3.5 mmol/L (0.5-2.0)
[2024-01-03] MEDS: Insulin Glargine,Hum.rec.anlog 100 UNIT/ML 10 ML VIAL 20 UNIT SUBCUT (05:21)
[2024-01-03 05:32] LABS: Appearance Urine Turbid; Color Urine Yellow; Glucose Urine UA >=1000 mg/dL (Negative); Leukocyte Esterase Urine Moderate (2+) (Negative); Nitrite Urine Positive (Negative); PH 5.5 (5.0-9.0); Specific Gravity - Urine >= 1.030 (1.005-1.025); UMIC TRIGGER UACC YES; Urine Blood Small (1+) (Negative); Urine Ketones 80 mg/dL (Negative); Urine Protein 100 (2+) mg/dL (Neg-Trace)
--- NOTE | 2024-01-03 05:38 | PC.NURSE ---
LR infusion stopped per . NS infusion at 125mL/hr started. pt request prn tylenol for JASSO. report given to [facility] RN pt awaiting transport to floor.
[2024-01-03] MEDS: 0.9 % Sodium Chloride 1,000 ML 125 ML IVCONT ×3 (05:39→19:43)
[2024-01-03] MEDS: Acetaminophen 325 MG TABLET 975 MG PO ×2 (05:40→14:36)
[2024-01-03 05:47] LABS: Bacteria Urine 2+ (None Seen); Squamous Epithelial Cell Urine 0-2 /HPF (0-2); UACC Culture Trigger YES; WBC Urine >50 /HPF (0-5)
[2024-01-03 05:58] LABS: Amphetamine Screen Urine Not Detected (Not Detect); Barbiturates, Urine Not Detected (Not Detect); Benzodiazepines Screen Urine Not Detected (Not Detect); Buprenorphine Scr Not Detected (Not Detect); Cannabinoid Screen Urine Not Detected (Not Detect); Cocaine Screen Urine Not Detected (Not Detect); Fentanyl, urine Not Detected (Not Detect); Methadone Screen, Urine Not Detected (Not Detect); Opiate Screen Urine Not Detected (Not Detect); Oxycodone Screen Urine Not Detected (Not Detect); Phencyclidine Screen Urine Not Detected (Not Detect)
[2024-01-03 06:25] LABS: Glucose, Whole Blood 405 mg/dL (60-115)
[2024-01-03 06:27] LABS: Glucose, Whole Blood 399 mg/dL (60-115)
[2024-01-03 06:35] LABS: Reflex Lactate? 2 Y
[2024-01-03 06:39] LABS: Hemoglobin A1c % > 14.0 % (<6.0)
--- NOTE | 2024-01-03 06:40 | PC.NURSE ---
POC 399.REPORTED TO DR MCKEON. STATES OK TO GIVE 12 UNITS LISPRO PER SLIDING SCALE.
[2024-01-03] MEDS: Insulin Lispro 100 UNIT/ML 3 ML VIAL SUBCUT ×4 (06:48→20:28)
[2024-01-03 07:31] LABS: Glucose, Whole Blood 340 mg/dL (60-115)
[2024-01-03] MEDS: 0.9 % Sodium Chloride Flush 3 ML SYRINGE IVFLUSH ×2 (08:07→14:38)
[2024-01-03 08:55] LABS: ~Lactic Acid-LAB USE ONLY 3.6 mmol/L (0.5-2.0)
[2024-01-03 09:00] LABS: Salicylate < 5.0 mg/dL (15-30)
--- NOTE | 2024-01-03 09:03 | PHA.MEDREC ---
Pharmacy Consult ? Medication Reconciliation Pharmacy has completed the medication reconciliation. Spoke to patient, she is only taking Aspen aspirin 325 mg 2 tablets daily prn pain.
--- NOTE | 2024-01-03 10:56 | MHC.CM.PN ---
CM met with Patient at bedside and assisted her with the completion of a HCP; she named her Daughter/Carlene as her Agent. 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 Home/self care is the goal and CM has initiated and will follow for dc planning. PCP was Dr. Alie Madera(moved out of area) and she has been reassigned a new male Doctor(she prefers a woman).
[2024-01-03 11:34] LABS: Glucose, Whole Blood 309 mg/dL (60-115)
[2024-01-03] MEDS: Albumin Human 25 % 100 ML 133.33 ML IV ×2 (11:48→12:42)
[2024-01-03] MEDS: 0.9 % Sodium Chloride 1,000 ML 999 ML IVCONT ×2 (11:48→12:48)
[2024-01-03] MEDS: Piperacillin Sodium/Tazobactam 3.375 GM in 0.9 % Sodium Chloride 50 ML IV ×3 (12:13→23:42)
[2024-01-03 12:44] LABS: Venous Blood Gas Refer to POC result
[2024-01-03 12:45] LABS: Hematocrit 30.5 % (37.0-47.0); Hemoglobin 10.3 g/dl (12.0-16.0); Mean Corpuscular HGB Conc 33.8 g/dl (31.0-35.0); Mean Corpuscular Hemoglobin 29.4 pg (27.0-33.0); Mean Corpuscular Volume 87.1 fL (80.0-98.0); Mean Platelet Volume 10.3 fL (9.4-12.3); Platelet Count 234 X10*3/uL (160-400); Red Cell Distribution Width 15.5 % (11.0-16.0); White Blood Count 16.5 X10*3/uL (4.8-10.8)
[2024-01-03 12:46] LABS: VBG Base Excess 1.4 mmol/L; VBG HCO3 26 mmol/L (22-26); VBG pCO2 43 mmHg; VBG pH 7.39 (7.32-7.43); VBG pO2 38 mmHg
--- NOTE | 2024-01-03 12:53 | HO.PM.IMPN ---
Subjective Subjective Date of Service: 01/03/24 Interval History: severe sepsis Review of Systems has low bp episode responded to ivf bolus denies new c/o has right flank pain , no fevers blood culture positive -Gram negative rods. Physical Exam Vital Signs: Vital Signs: Last Vital Signs vitals reviewed. Temp 98 F Pulse 93 Resp 18 BP 107/55 L Pulse Ox 91 O2 Del Method Nasal Cannula O2 Flow Rate 1 BMI result Body Mass Index 33.1 Appearance: Alert.? Oriented X3.? general weak. cvs: rrr, [id number] . res: air entry fair ,somewhat diminshed at bases. abd: no rebound or guarding ,nt, bs present. ext pulses present .. neuro: axo3 , nonfocal. Objective Data Active Medications Acetaminophen (Acetaminophen 325 Mg Tablet) 975 mg PO Q6H PRN PRN Reason: Pain, Mild (Pain Scale 1-3), fever or headache Last Admin: 01/03/24 05:40 Dose: 975 mg Documented By: EDUARDO Calcium Carbonate (Calcium Carbonate 750 Mg Tab.Chew) 750 mg PO Q4H PRN PRN Reason: Heartburn Enoxaparin Sodium (Enoxaparin Sodium 40 Mg/0.4 Ml Syringe) 40 mg SUBCUT Q24H [facility] Last Admin: 01/03/24 08:07 Dose: Not Given Documented By: BAKARI Non-Admin Reason: Patient Refused Glucose (Glucose Gel 15 Gm Gel..Gram.) 15 gm PO Q15M PRN; Protocol PRN Reason: per Hypoglycemia Standing Ord. Sodium Chloride (Ns) 1,000 mls @ 125 mls/hr IVCONT .Q8H CHRIS Last Infusion: 01/03/24 12:19 Dose: 0 mls/hr Documented By: BAKARI Dextrose (D10) 250 mls @ 750 mls/hr IV Q15M PRN; Protocol PRN Reason: per Hypoglycemia Standing Ord. Sodium Chloride (Ns) 1,000 mls @ 999 mls/hr IVCONT .Q1H1M [facility] Stop: 01/03/24 13:45 Last Admin: 01/03/24 12:48 Dose: 999 mls/hr Documented By: BAKARI Albumin Human (Kedbumin 25 %) 100 mls @ 133.333 mls/hr IV Q1H [facility] Stop: 01/03/24 13:29 Last Admin: 01/03/24 12:42 Dose: 133.33 mls/hr Documented By: BAKARI Piperacillin Sod/Tazobactam (Sod 3.375 gm/ Sodium Chloride) 50 mls @ 100 mls/hr IV Q6H [facility] Last Admin: 01/03/24 12:13 Dose: 100 mls/hr Documented By: BAKARI Insulin Glargine (Insulin Glargine,Hum.Rec.Anlog 100 Unit/Ml 10 Ml Vial) 20 unit SUBCUT DAILY [facility] Last Admin: 01/03/24 05:21 Dose: 20 unit Documented By: EDUARDO Insulin Human Lispro (Insulin Lispro 100 Unit/Ml 3 Ml Vial) 0 unit SUBCUT QIDACHS [facility]; Protocol Last Admin: 01/03/24 12:17 Dose: 10 unit Documented By: BAKARI Ketorolac Tromethamine (Ketorolac Tromethamine 15 Mg/Ml Vial) 15 mg IVPUSH Q6H PRN PRN Reason: Pain, Severe (Pain Scale 7-10) Last Admin: 01/03/24 08:06 Dose: 15 mg Documented By: BAKARI Magnesium Hydroxide (Milk Of Magnesia 30 Ml Oral.Susp) 30 ml PO DAILY PRN PRN Reason: Constipation Melatonin (Melatonin 3 Mg Tablet) 6 mg PO BEDTIME PRN PRN Reason: Insomnia Ondansetron HCl (Ondansetron Hcl 4 Mg/2 Ml Vial) 4 mg IVPUSH Q8H PRN PRN Reason: Nausea and Vomiting Sodium Chloride (0.9 % Sodium Chloride Flush 3 Ml Syringe) 3 ml IVFLUSH [facility] Last Admin: 01/03/24 08:07 Dose: 3 ml Documented By: BAKARI Sodium Chloride (0.9 % Sodium Chloride Flush 3 Ml Syringe) 3 ml IVFLUSH [facility] Last Admin: 01/03/24 08:07 Dose: Not Given Documented By: BAKARI Non-Admin Reason: Duplicate Order Labs 01/03/24 12:33 01/03/24 12:29 Labs: Laboratory Results - last 24 hr 01/03/24 01/03/24 01/03/24 01:19 02:07 02:12 MCV 85.4 MCH 28.8 MCHC 33.7 RDW 15.4 Plt Count 282 MPV 10.2 Immature Gran % (Auto) 1.1 H Neut % (Auto) 92.2 H Lymph % (Auto) 4.0 L Tucker % (Auto) 2.4 Eos % (Auto) 0.0 Baso % (Auto) 0.3 Lymph # (Auto) 0.8 L Tucker # (Auto) 0.5 Eos # (Auto) 0.0 Baso # (Auto) 0.1 Abs Immat Gran (auto) 0.20 H Absolute Neuts (auto) 17.3 H Absolute Nucleated RBC 0.000 Nucleated RBC % (auto) 0.0 Smear Tech's Comments VERIFIED Hold Purple Top APTT 26.3 VBG pH 7.40 VBG pCO2 32 VBG pO2 57 VBG HCO3 20 L VBG O2 Saturation 86.0 VBG Base Excess -3.7 Anion Gap 27 H Estim Creat Clear Calc 43.3 Estimated GFR 37 POC Glucose 581 H* Random Glucose 637 H* Estimat Average Glucose TNP Hemoglobin A1c % > 14.0 H Lactic Acid 2.3 H* Lactic Acid F/U @ 2Hr Lactic Acid F/U @ 4Hr Calcium 9.4 Magnesium 1.8 Total Bilirubin 0.6 AST 10 ALT 8 Alkaline Phosphatase 124 H Troponin I High Sens 6.8 Total Protein 7.3 Albumin 3.5 Lipase 11 Beta-Hydroxybutyrate 5.20 H Urine Color Urine Appearance Urine pH Ur Specific [place] Urine Protein Urine Glucose (UA) Urine Ketones Urine Blood Urine Nitrite Ur Leukocyte Esterase Urine RBC Urine WBC Ur Squamous Epith Cells Urine Bacteria Hyaline Casts Salicylates Urine Opiates Screen Ur Buprenorphine Scrn Ur Oxycodone Screen Urine Methadone Screen Urine Fentanyl Screen Ur Barbiturates Screen Ur Phencyclidine Scrn Ur Amphetamines Screen U Benzodiazepines Scrn Urine Cocaine Screen U Marijuana (THC) Screen Influenza Type A (PCR) Influenza Type B (PCR) RSV RNA Qual (PCR) SARS-CoV-2 RNA (RT-PCR) 01/03/24 01/03/24 01/03/24 02:16 02:27 03:01 MCV MCH MCHC RDW Plt Count MPV Immature Gran % (Auto) Neut % (Auto) Lymph % (Auto) Tucker % (Auto) Eos % (Auto) Baso % (Auto) Lymph # (Auto) Tucker # (Auto) Eos # (Auto) Baso # (Auto) Abs Immat Gran (auto) Absolute Neuts (auto) Absolute Nucleated RBC Nucleated RBC % (auto) Smear Tech's Comments Hold Purple Top APTT VBG pH VBG pCO2 VBG pO2 VBG HCO3 VBG O2 Saturation VBG Base Excess Anion Gap Estim Creat Clear Calc Estimated GFR POC Glucose 581 H* 505 H* Random Glucose Estimat Average Glucose Hemoglobin A1c % Lactic Acid Lactic Acid F/U @ 2Hr Lactic Acid F/U @ 4Hr Calcium Magnesium Total Bilirubin AST ALT Alkaline Phosphatase Troponin I High Sens Total Protein Albumin Lipase Beta-Hydroxybutyrate Urine Color Urine Appearance Urine pH Ur Specific [place] Urine Protein Urine Glucose (UA) Urine Ketones Urine Blood Urine Nitrite Ur Leukocyte Esterase Urine RBC Urine WBC Ur Squamous Epith Cells Urine Bacteria Hyaline Casts Salicylates Urine Opiates Screen Ur Buprenorphine Scrn Ur Oxycodone Screen Urine Methadone Screen Urine Fentanyl Screen Ur Barbiturates Screen Ur Phencyclidine Scrn Ur Amphetamines Screen U Benzodiazepines Scrn Urine Cocaine Screen U Marijuana (THC) Screen Influenza Type A (PCR) NEGATIVE Influenza Type B (PCR) NEGATIVE RSV RNA Qual (PCR) NEGATIVE SARS-CoV-2 RNA (RT-PCR) NEGATIVE 01/03/24 01/03/24 01/03/24 03:33 03:50 03:59 MCV MCH MCHC RDW Plt Count MPV Immature Gran % (Auto) Neut % (Auto) Lymph % (Auto) Tucker % (Auto) Eos % (Auto) Baso % (Auto) Lymph # (Auto) Tucker # (Auto) Eos # (Auto) Baso # (Auto) Abs Immat Gran (auto) Absolute Neuts (auto) Absolute Nucleated RBC Nucleated RBC % (auto) Smear Tech's Comments Hold Purple Top APTT VBG pH VBG pCO2 VBG pO2 VBG HCO3 VBG O2 Saturation VBG Base Excess Anion Gap 21 H Estim Creat Clear Calc 51.9 Estimated GFR 46 POC Glucose 492 H* 462 H* Random Glucose 472 H* Estimat Average Glucose Hemoglobin A1c % Lactic Acid Lactic Acid F/U @ 2Hr Lactic Acid F/U @ 4Hr Calcium 8.5 D Magnesium Total Bilirubin AST ALT Alkaline Phosphatase Troponin I High Sens 7.1 Total Protein Albumin Lipase Beta-Hydroxybutyrate Urine Color Urine Appearance Urine pH Ur Specific [place] Urine Protein Urine Glucose (UA) Urine Ketones Urine Blood Urine Nitrite Ur Leukocyte Esterase Urine RBC Urine WBC Ur Squamous Epith Cells Urine Bacteria Hyaline Casts Salicylates Urine Opiates Screen Ur Buprenorphine Scrn Ur Oxycodone Screen Urine Methadone Screen Urine Fentanyl Screen Ur Barbiturates Screen Ur Phencyclidine Scrn Ur Amphetamines Screen U Benzodiazepines Scrn Urine Cocaine Screen U Marijuana (THC) Screen Influenza Type A (PCR) Influenza Type B (PCR) RSV RNA Qual (PCR) SARS-CoV-2 RNA (RT-PCR) 01/03/24 01/03/24 01/03/24 04:29 04:32 05:22 MCV MCH MCHC RDW Plt Count MPV Immature Gran % (Auto) Neut % (Auto) Lymph % (Auto) Tucker % (Auto) Eos % (Auto) Baso % (Auto) Lymph # (Auto) Tucker # (Auto) Eos # (Auto) Baso # (Auto) Abs Immat Gran (auto) Absolute Neuts (auto) Absolute Nucleated RBC Nucleated RBC % (auto) Smear Tech's Comments Hold Purple Top APTT VBG pH VBG pCO2 VBG pO2 VBG HCO3 VBG O2 Saturation VBG Base Excess Anion Gap Estim Creat Clear Calc Estimated GFR POC Glucose 454 H* Random Glucose Estimat Average Glucose Hemoglobin A1c % Lactic Acid Lactic Acid F/U @ 2Hr 3.5 H* Lactic Acid F/U @ 4Hr Calcium Magnesium Total Bilirubin AST ALT Alkaline Phosphatase Troponin I High Sens Total Protein Albumin Lipase Beta-Hydroxybutyrate Urine Color Yellow Urine Appearance Turbid Urine pH 5.5 Ur Specific [place] >= 1.030 H Urine Protein 100 (2+) H Urine Glucose (UA) >=1000 H Urine Ketones 80 Urine Blood Small (1+) H Urine Nitrite Positive H Ur Leukocyte Esterase Moderate (2+) H Urine RBC 6-10 H Urine WBC >50 H Ur Squamous Epith Cells 0-2 Urine Bacteria 2+ Hyaline Casts 6-10 Salicylates Urine Opiates Screen Not Detected Ur Buprenorphine Scrn Not Detected Ur Oxycodone Screen Not Detected Urine Methadone Screen Not Detected Urine Fentanyl Screen Not Detected Ur Barbiturates Screen Not Detected Ur Phencyclidine Scrn Not Detected Ur Amphetamines Screen Not Detected U Benzodiazepines Scrn Not Detected Urine Cocaine Screen Not Detected U Marijuana (THC) Screen Not Detected Influenza Type A (PCR) Influenza Type B (PCR) RSV RNA Qual (PCR) SARS-CoV-2 RNA (RT-PCR) 01/03/24 01/03/24 01/03/24 05:25 06:24 07:28 MCV MCH MCHC RDW Plt Count MPV Immature Gran % (Auto) Neut % (Auto) Lymph % (Auto) Tucker % (Auto) Eos % (Auto) Baso % (Auto) Lymph # (Auto) Tucker # (Auto) Eos # (Auto) Baso # (Auto) Abs Immat Gran (auto) Absolute Neuts (auto) Absolute Nucleated RBC Nucleated RBC % (auto) Smear Tech's Comments Hold Purple Top APTT VBG pH VBG pCO2 VBG pO2 VBG HCO3 VBG O2 Saturation VBG Base Excess Anion Gap Estim Creat Clear Calc Estimated GFR POC Glucose 405 H* 399 H* 340 H Random Glucose Estimat Average Glucose Hemoglobin A1c % Lactic Acid Lactic Acid F/U @ 2Hr Lactic Acid F/U @ 4Hr Calcium Magnesium Total Bilirubin AST ALT Alkaline Phosphatase Troponin I High Sens Total Protein Albumin Lipase Beta-Hydroxybutyrate Urine Color Urine Appearance Urine pH Ur Specific [place] Urine Protein Urine Glucose (UA) Urine Ketones Urine Blood Urine Nitrite Ur Leukocyte Esterase Urine RBC Urine WBC Ur Squamous Epith Cells Urine Bacteria Hyaline Casts Salicylates Urine Opiates Screen Ur Buprenorphine Scrn Ur Oxycodone Screen Urine Methadone Screen Urine Fentanyl Screen Ur Barbiturates Screen Ur Phencyclidine Scrn Ur Amphetamines Screen U Benzodiazepines Scrn Urine Cocaine Screen U Marijuana (THC) Screen Influenza Type A (PCR) Influenza Type B (PCR) RSV RNA Qual (PCR) SARS-CoV-2 RNA (RT-PCR) 01/03/24 01/03/24 01/03/24 08:23 11:27 12:33 MCV 87.1 MCH 29.4 MCHC 33.8 RDW 15.5 Plt Count 234 MPV 10.3 Immature Gran % (Auto) Neut % (Auto) Lymph % (Auto) Tucker % (Auto) Eos % (Auto) Baso % (Auto) Lymph # (Auto) Tucker # (Auto) Eos # (Auto) Baso # (Auto) Abs Immat Gran (auto) Absolute Neuts (auto) Absolute Nucleated RBC 0.000 Nucleated RBC % (auto) 0.0 Smear Tech's Comments Hold Purple Top SEE NOTE APTT VBG pH VBG pCO2 VBG pO2 VBG HCO3 VBG O2 Saturation VBG Base Excess Anion Gap Estim Creat Clear Calc Estimated GFR POC Glucose 309 H Random Glucose Estimat Average Glucose Hemoglobin A1c % Lactic Acid Lactic Acid F/U @ 2Hr Lactic Acid F/U @ 4Hr 3.6 H* Calcium Magnesium Total Bilirubin AST ALT Alkaline Phosphatase Troponin I High Sens Total Protein Albumin Lipase Beta-Hydroxybutyrate Urine Color Urine Appearance Urine pH Ur Specific [place] Urine Protein Urine Glucose (UA) Urine Ketones Urine Blood Urine Nitrite Ur Leukocyte Esterase Urine RBC Urine WBC Ur Squamous Epith Cells Urine Bacteria Hyaline Casts Salicylates < 5.0 L Urine Opiates Screen Ur Buprenorphine Scrn Ur Oxycodone Screen Urine Methadone Screen Urine Fentanyl Screen Ur Barbiturates Screen Ur Phencyclidine Scrn Ur Amphetamines Screen U Benzodiazepines Scrn Urine Cocaine Screen U Marijuana (THC) Screen Influenza Type A (PCR) Influenza Type B (PCR) RSV RNA Qual (PCR) SARS-CoV-2 RNA (RT-PCR) 01/03/24 12:36 MCV MCH MCHC RDW Plt Count MPV Immature Gran % (Auto) Neut % (Auto) Lymph % (Auto) Tucker % (Auto) Eos % (Auto) Baso % (Auto) Lymph # (Auto) Tucker # (Auto) Eos # (Auto) Baso # (Auto) Abs Immat Gran (auto) Absolute Neuts (auto) Absolute Nucleated RBC Nucleated RBC % (auto) Smear Tech's Comments Hold Purple Top APTT VBG pH 7.39 VBG pCO2 43 VBG pO2 38 VBG HCO3 26 VBG O2 Saturation 65.0 VBG Base Excess 1.4 Anion Gap Estim Creat Clear Calc Estimated GFR POC Glucose Random Glucose Estimat Average Glucose Hemoglobin A1c % Lactic Acid Lactic Acid F/U @ 2Hr Lactic Acid F/U @ 4Hr Calcium Magnesium Total Bilirubin AST ALT Alkaline Phosphatase Troponin I High Sens Total Protein Albumin Lipase Beta-Hydroxybutyrate Urine Color Urine Appearance Urine pH Ur Specific [place] Urine Protein Urine Glucose (UA) Urine Ketones Urine Blood Urine Nitrite Ur Leukocyte Esterase Urine RBC Urine WBC Ur Squamous Epith Cells Urine Bacteria Hyaline Casts Salicylates Urine Opiates Screen Ur Buprenorphine Scrn Ur Oxycodone Screen Urine Methadone Screen Urine Fentanyl Screen Ur Barbiturates Screen Ur Phencyclidine Scrn Ur Amphetamines Screen U Benzodiazepines Scrn Urine Cocaine Screen U Marijuana (THC) Screen Influenza Type A (PCR) Influenza Type B (PCR) RSV RNA Qual (PCR) SARS-CoV-2 RNA (RT-PCR) Microbiology Microbiology Results: Microbiology 01/03/24 02:09 Blood Culture - Preliminary Blood - Venous Prelim: GNR Gram Stain only 01/03/24 02:08 Blood Culture - Preliminary Blood - Venous Prelim: GNR Gram Stain only Assessment and Plan (1) Uncontrolled type 2 diabetes mellitus with hyperglycemia: Status: Acute (2) Severe sepsis: Status: Acute Plan 63 y/o woman admitted with: Severe sepsis secondary to pyelonephritis/complicated UTI: UA + Abd pelvic -findings consistent with UTI. Leukocytosis, tachycardia improving Blood [id number] rods and urine culture -pending Acute Lactic acidosis lactic acid levels 3.5/3.6 -2.8. pt has received total 3 L of LR in ED, also ceftriaxone-which we will change to Zosyn IV until blood culture identification and sensitivity come back, continue IV fluids. Patient is generalized weak. Mental status seems fine so far. Id evaluation added. pulm: possible Atelactasis vs undignosed sleep apnea: sats flacuates 88-93 % when sleeps or does not take deep breathing lung exam also diminshed at bases cxr clear advised for sitting up, incentive wade,chest physiotherapy will continue to moniter. Nausea and vomiting, likely secondary to acute pyelonephritis. Continue IV fluids. Continue therapy with antiemetic therapy . hypotesion episode -multifactorial-dehydration, hypo albuminemia. Added normal saline 1 L bolus, albumin and responded well. chris : Due to dehydration/hypoalbuminemia Improving with fluid, continue maintenance fluid. closely moniter bmp. Uncontrolled type 2 diabetes mellituswith hyperglycemia, no DKA. Hemoglobin A1c > 14 PH normal No anion gap Fingersticks improving recieved multiple doses of insulin last night Continue Lantus 20 units subQ daily, sliding scale coverage adjusted. History of essential hypertension, not taking anti-HTN meds at the moment. BP stable. Continue to monitor for now. Obesity, class 1. BMI 37.7 kg/m2. Encourage weight loss, cutdown calories. DVT prophylaxis: Lovenox ICU evaluation added-discussed the case with ICU: Currently recommended to current management with continue IV fluid, albumin, antibiotics and monitor clinically closely Ongoing hospitalization need for severe sepsis + pyelonephritis complicated with uncontrolled type 2 diabetes mellitus with IV fluids, empiric IV antibiotic therapy, insulin and close monitoring of vital signs and blood workup. Quality Stroke Does the patient have a stroke diagnosis?: No VTE Prior VTE?: No VTE Risk Level:: Medical - moderate - high VTE Device Contraindication: Treatment Not Indicated VTE Drug Contraindication: N/A - Med Ordered
[2024-01-03 12:57] LABS: Beta-Hydroxybutyrate 1.39 mmol/L (0.02-0.27)
[2024-01-03 12:59] LABS: Alanine Aminotransferase 9 U/L (0-31); Alkaline Phosphatase 99 U/L (39-117); Anion Gap 16 (12-20); Aspartate Amino Transferase 15 U/L (5-31); Bilirubin Total 0.4 mg/dL (0.0-1.0); Blood Urea Nitrogen 23 mg/dL (9-16); Calcium 8.5 mg/dL (8.4-10.2); Carbon Dioxide 26 mmol/L (22-29); Chloride 97 mmol/L (96-108); Creatinine Clr Calc Pharmacy 43.6; Estimated Glomerular Filt Rate 37; Glucose Random 363 mg/dL (60-115); Lactic Acid 2.8 mmol/L (0.5-2.0); Potassium 3.6 mmol/L (3.3-5.1); Sodium 135 mmol/L (135-145); Total Protein 5.8 g/dL (6.5-8.0)
--- NOTE | 2024-01-03 13:12 | P.CONCC_ITS ---
History of Present Illness Data of Consult Service Date: 01/03/24 Primary Care Provider: Unknown Physician HPI Reason for consult: Level of care 63-year-old lady with underlying diabetes mellitus and hypertension admitted on 01/03/2024 with nausea and vomiting secondary to right-sided flank pain secondary to right-sided pyelonephritis. Patient started empiric antibiotics and admitted to the telemetry sa[facility]. This morning patient with hypertension episode, however is responding well to IV fluid resuscitation. Laboratory studies including lactate are also improving. Review of Systems 2 Constitutional: Constitutional: Denies daytime sleepiness, Denies excessive sweating, Denies fatigue, Denies fever(s), Denies lethargy, Reports malaise, Denies night sweats, Denies snoring and Denies weight loss Eyes: Eyes: Denies blurry vision and Denies itchy eyes ENT: Denies nasal congestion, Denies post nasal drip, Denies sinus pain, Denies sinus pressure and Denies other ( Thrush) Cardiovascular: Cardiovascular: Denies chest pain, Denies pedal edema, Denies dyspnea, Denies orthopnea and Denies paroxysmal nocturnal dyspnea Respiratory: Respiratory: Denies cough, Denies hemoptysis, Denies excessive phlegm production, Denies dyspnea, Denies snoring and Denies wheezing Gastrointestinal: Gastrointestinal: Denies abdominal pain and Denies heartburn Musculoskeletal: Musculoskeletal: Denies myalgias, Denies arthralgias and Denies joint swelling Integumentary/Breasts: Skin/Breast: Denies rash Neurologic: Denies memory loss and Denies seizure-like activity Psychiatric: Psychiatric: Denies abnormal sleep pattern, Denies anxiety and Denies memory loss Endocrine: Endocrine: Denies excessive sweating, Denies fatigue and Denies heat intolerance Hematologic/Lymphatic: Hematologic/Lymphatic: Denies easy bruising Allergic/Immunologic: Allergic/Immunologic: Denies itchy eyes, Denies seasonal rhinorrhea and Denies wheezing PMFSH Past Medical History Medical History (Updated 01/03/24 @ 06:10 by Ramon Jackson MD) Obesity Systolic heart failure Diabetes HTN (hypertension) Cardiomyopathy Family History Family History Father Cancer Mother No problems noted. Surgical History Surgical History (Updated 03/26/21 @ 10:26 by Gwendolyn Kilgore) History of appendectomy History of tonsillectomy History of hernia surgery Social History Social History (Updated 03/26/21 @ 10:27 by Gwendolyn Kilgore) Household Members: Spouse Housing: Apartment Do you presently have visiting nurse or other home services: No Patient Tobacco Use Status: Never used Tobacco Smoked in Last 30 Days: No e-Cigarette/Vaping Use: Never Used Use of substances other than those prescribed or required for medical reasons: No Have you been hit, kicked, punched, or otherwise hurt by someone within the past year? If so, by whom?: No Do you feel safe in your current relationship?: Yes Is there a partner from a previous relationship who is making you feel unsafe now?: No Are you made to feel afraid or neglected: No Advance Directives: No Advance Directives Information Provided: Yes Do you have a plan to hurt others: No Plan Recently lost weight without trying: No Eating poorly because of decreased appetite: No Nutrition Risks: No Nutritional Risk Patient : No service: No Current occupational status: unemployed Meds Allergies Allergy/AdvReac Type Severity Reaction Status Date / Time codeine [CODEINE] Allergy Unknown UNKNOWN Verified 01/03/24 01:22 metoprolol [Toprol XL] Allergy Unknown Unknown Verified 01/03/24 01:22 lisinopril Allergy Unknown Verified 01/03/24 01:23 mold Allergy runny Verified 01/03/24 01:22 nose, watery eyes ragweed pollen Allergy runny Verified 01/03/24 01:22 nose, watery eyes Codeine Allergy Unknown Unknown Uncoded 01/03/24 01:22 codine Allergy Unknown Unknown Uncoded 01/03/24 01:22 [place] Allergy Unknown Unknown Uncoded 01/03/24 01:22 Active Medications: Current Medications Acetaminophen (Acetaminophen 325 Mg Tablet) 975 mg PO Q6H PRN PRN Reason: Pain, Mild (Pain Scale 1-3), fever or headache Last Admin: 01/03/24 05:40 Dose: 975 mg Calcium Carbonate (Calcium Carbonate 750 Mg Tab.Chew) 750 mg PO Q4H PRN PRN Reason: Heartburn Enoxaparin Sodium (Enoxaparin Sodium 40 Mg/0.4 Ml Syringe) 40 mg SUBCUT Q24H CHRIS Last Admin: 01/03/24 08:07 Dose: Not Given Glucose (Glucose Gel 15 Gm Gel..Gram.) 15 gm PO Q15M PRN; Protocol PRN Reason: per Hypoglycemia Standing Ord. Sodium Chloride (Ns) 1,000 mls @ 125 mls/hr IVCONT .Q8H REPLACED BY [facility] Last Infusion: 01/03/24 12:19 Dose: 0 mls/hr Dextrose (D10) 250 mls @ 750 mls/hr IV Q15M PRN; Protocol PRN Reason: per Hypoglycemia Standing Ord. Sodium Chloride (Ns) 1,000 mls @ 999 mls/hr IVCONT .Q1H1M REPLACED BY [facility] Stop: 01/03/24 13:45 Last Admin: 01/03/24 12:48 Dose: 999 mls/hr Albumin Human (Kedbumin 25 %) 100 mls @ 133.333 mls/hr IV Q1H REPLACED BY [facility] Stop: 01/03/24 13:29 Last Admin: 01/03/24 12:42 Dose: 133.33 mls/hr Piperacillin Sod/Tazobactam (Sod 3.375 gm/ Sodium Chloride) 50 mls @ 100 mls/hr IV Q6H REPLACED BY [facility] Last Admin: 01/03/24 12:13 Dose: 100 mls/hr Insulin Glargine (Insulin Glargine,Hum.Rec.Anlog 100 Unit/Ml 10 Ml Vial) 20 unit SUBCUT DAILY REPLACED BY [facility] Last Admin: 01/03/24 05:21 Dose: 20 unit Insulin Human Lispro (Insulin Lispro 100 Unit/Ml 3 Ml Vial) 0 unit SUBCUT QIDACHS REPLACED BY [facility]; Protocol Last Admin: 01/03/24 12:17 Dose: 10 unit Ketorolac Tromethamine (Ketorolac Tromethamine 15 Mg/Ml Vial) 15 mg IVPUSH Q6H PRN PRN Reason: Pain, Severe (Pain Scale 7-10) Last Admin: 01/03/24 08:06 Dose: 15 mg Magnesium Hydroxide (Milk Of Magnesia 30 Ml Oral.Susp) 30 ml PO DAILY PRN PRN Reason: Constipation Melatonin (Melatonin 3 Mg Tablet) 6 mg PO BEDTIME PRN PRN Reason: Insomnia Ondansetron HCl (Ondansetron Hcl 4 Mg/2 Ml Vial) 4 mg IVPUSH Q8H PRN PRN Reason: Nausea and Vomiting Sodium Chloride (0.9 % Sodium Chloride Flush 3 Ml Syringe) 3 ml IVFLUSH QSHIFT REPLACED BY [facility] Last Admin: 01/03/24 08:07 Dose: 3 ml Sodium Chloride (0.9 % Sodium Chloride Flush 3 Ml Syringe) 3 ml IVFLUSH QSHIFT REPLACED BY [facility] Last Admin: 01/03/24 08:07 Dose: Not Given Home Medications ?Medication ?Instructions ?Recorded ?Confirmed ?Last Taken ?Type aspirin 325 mg tablet 650 mg PO DAILY PRN Pain 01/03/24 01/03/24 Unknown History Physical Exam 2 Vital Signs: Vital Signs: Last Vital Signs Temp 98 F 01/03/24 12:49 Pulse 93 01/03/24 12:49 Resp 18 01/03/24 07:50 BP 107/55 L 01/03/24 12:49 Pulse Ox 94 01/03/24 12:49 O2 Del Method Nasal Cannula 01/03/24 12:49 O2 Flow Rate 5 01/03/24 12:49 BMI result Body Mass Index 33.1 Const: General: no acute distress and alert Nutritional Appearance: obese Orientation/consciousness: Other orientation findings ( oriented) HEENT: Head: Yes atraumatic Eyes: General: appearance normal, both eyes and all related structures S clerae: sclerae normal EOM: EOMs intact bilaterally Neck: Neck: Yes supple Lymphatic: no lymphadenopathy noted Resp: Effort & Inspection: normal respiratory effort and no use of accessory muscles Auscultation: clear to auscultation bilaterally Cardio: Rate: regular rate Rhythm: regular rhythm Heart sounds: no gallops, no murmurs and no rubs Skin: General skin exam: other ( warm) Extrem: General: No clubbing, No cyanosis and No edema Results Labs 01/03/24 12:33 01/03/24 12:29 Labs: Short CBC 01/03/24 01/03/24 Range/Units 02:07 12:33 WBC 18.7 H 16.5 H (4.8-10.8) X10*3/uL Hgb 13.6 10.3 L D (12.0-16.0) g/dl Hct 40.3 30.5 L D (37.0-47.0) % Plt Count 282 234 (160-400) X10*3/uL BMP 01/03/24 01/03/24 01/03/24 02:07 03:50 12:29 Sodium 133 L 137 135 Potassium 4.2 3.6 3.6 Chloride 91 L 97 97 Carbon Dioxide 19 L 23 26 BUN 19 H 18 H 23 H Creatinine 1.43 H 1.19 1.45 H Calcium 9.4 8.5 D 8.5 Liver Function 01/03/24 01/03/24 Range/Units 02:07 12:29 Total Bilirubin 0.6 0.4 (0.0-1.0) mg/dL AST 10 15 (5-31) U/L ALT 8 9 (0-31) U/L Alkaline Phosphatase 124 H 99 (39-117) U/L Albumin 3.5 3.0 L (3.5-5.0) g/dL Urine 01/03/24 Range/Units 05:22 Urine Color Yellow Urine Appearance Turbid Urine pH 5.5 (5.0-9.0) Ur Specific [place] >= 1.030 H (1.005-1.025) Urine Protein 100 (2+) H (Neg-Trace) mg/dL Urine Glucose (UA) >=1000 H (Negative) mg/dL Microbiology Microbiology Results: Microbiology 01/03/24 02:09 Blood - Venous Blood Culture - Preliminary Prelim: GNR Gram Stain only 01/03/24 02:08 Blood - Venous Blood Culture - Preliminary Prelim: GNR Gram Stain only Assessment and Plan (1) Severe sepsis: Status: Acute (2) Uncontrolled type 2 diabetes mellitus with hyperglycemia: Status: Acute (3) Hydroureter on right: Status: Acute Plan Impression: 63-year-old lady admitted with sepsis with likely source being right pyelonephritis, with transient hypotensive episode, now responding well to IV fluids. Recommendations: Agree with current treatment regimen. At this time does not require intensive care level of monitoring, please notify for re-evaluation, if patient's condition changes.
[2024-01-03 13:18] LABS: Cortisol Random 45.7 ug/dL
[2024-01-03 14:44] LABS: Reflex Lactate? Lactic Acid Added
[2024-01-03 15:33] LABS: Glucose, Whole Blood 365 mg/dL (60-115)
[2024-01-03 15:42] LABS: Cancel Lactic Acid Canceled
--- NOTE | 2024-01-03 16:25 | P.CNID_ITS ---
History of Present Illness Data of Consult Service Date: 01/03/24 Requesting physician: Rajani Porter Primary Care Provider: Unknown Physician HPI Reason for consult: right flank pain,bacteremia She has right flank pain ,more severe over last day. She has right hydroureter. She has no obstruction seen but gram negative in blood. Review of Systems 2 Review of Systems: Yes all other systems are reviewed and are negative PMFSH Past Medical History Medical History Obesity Systolic heart failure Diabetes HTN (hypertension) Cardiomyopathy Family History Family History Father Cancer Mother No problems noted. Family history: reviewed and not pertinent Surgical History Surgical History History of appendectomy History of tonsillectomy History of hernia surgery Social History Social History Household Members: Spouse Housing: Apartment Do you presently have visiting nurse or other home services: No Patient Tobacco Use Status: Never used Tobacco Smoked in Last 30 Days: No e-Cigarette/Vaping Use: Never Used Use of substances other than those prescribed or required for medical reasons: No Have you been hit, kicked, punched, or otherwise hurt by someone within the past year? If so, by whom?: No Do you feel safe in your current relationship?: Yes Is there a partner from a previous relationship who is making you feel unsafe now?: No Are you made to feel afraid or neglected: No Advance Directives: No Advance Directives Information Provided: Yes Do you have a plan to hurt others: No Plan Recently lost weight without trying: No Eating poorly because of decreased appetite: No Nutrition Risks: No Nutritional Risk Patient : No service: No Current occupational status: unemployed Meds Allergies Allergy/AdvReac Type Severity Reaction Status Date / Time codeine [CODEINE] Allergy Unknown UNKNOWN Verified 01/03/24 01:22 metoprolol [Toprol XL] Allergy Unknown Unknown Verified 01/03/24 01:22 lisinopril Allergy Unknown Verified 01/03/24 01:23 mold Allergy runny Verified 01/03/24 01:22 nose, watery eyes ragweed pollen Allergy runny Verified 01/03/24 01:22 nose, watery eyes Codeine Allergy Unknown Unknown Uncoded 01/03/24 01:22 codine Allergy Unknown Unknown Uncoded 01/03/24 01:22 [place] Allergy Unknown Unknown Uncoded 01/03/24 01:22 Active Medications: Current Medications Acetaminophen (Acetaminophen 325 Mg Tablet) 975 mg PO Q6H PRN PRN Reason: Pain, Mild (Pain Scale 1-3), fever or headache Last Admin: 01/03/24 14:36 Dose: 975 mg Calcium Carbonate (Calcium Carbonate 750 Mg Tab.Chew) 750 mg PO Q4H PRN PRN Reason: Heartburn Enoxaparin Sodium (Enoxaparin Sodium 40 Mg/0.4 Ml Syringe) 40 mg SUBCUT Q24H COUNTS INCLUDE 234 BEDS AT THE [facility] Last Admin: 01/03/24 08:07 Dose: Not Given Glucose (Glucose Gel 15 Gm Gel..Gram.) 15 gm PO Q15M PRN; Protocol PRN Reason: per Hypoglycemia Standing Ord. Sodium Chloride (Ns) 1,000 mls @ 125 mls/hr IVCONT .Q8H COUNTS INCLUDE 234 BEDS AT THE [facility] Last Admin: 01/03/24 13:20 Dose: 125 mls/hr Dextrose (D10) 250 mls @ 750 mls/hr IV Q15M PRN; Protocol PRN Reason: per Hypoglycemia Standing Ord. Piperacillin Sod/Tazobactam (Sod 3.375 gm/ Sodium Chloride) 50 mls @ 100 mls/hr IV Q6H COUNTS INCLUDE 234 BEDS AT THE [facility] Last Infusion: 01/03/24 13:21 Dose: Infused Insulin Glargine (Insulin Glargine,Hum.Rec.Anlog 100 Unit/Ml 10 Ml Vial) 20 unit SUBCUT DAILY COUNTS INCLUDE 234 BEDS AT THE [facility] Last Admin: 01/03/24 05:21 Dose: 20 unit Insulin Human Lispro (Insulin Lispro 100 Unit/Ml 3 Ml Vial) 0 unit SUBCUT QIDACHS COUNTS INCLUDE 234 BEDS AT THE [facility]; Protocol Last Admin: 01/03/24 12:17 Dose: 10 unit Ketorolac Tromethamine (Ketorolac Tromethamine 15 Mg/Ml Vial) 15 mg IVPUSH Q6H PRN PRN Reason: Pain, Severe (Pain Scale 7-10) Last Admin: 01/03/24 08:06 Dose: 15 mg Magnesium Hydroxide (Milk Of Magnesia 30 Ml Oral.Susp) 30 ml PO DAILY PRN PRN Reason: Constipation Melatonin (Melatonin 3 Mg Tablet) 6 mg PO BEDTIME PRN PRN Reason: Insomnia Ondansetron HCl (Ondansetron Hcl 4 Mg/2 Ml Vial) 4 mg IVPUSH Q8H PRN PRN Reason: Nausea and Vomiting Sodium Chloride (0.9 % Sodium Chloride Flush 3 Ml Syringe) 3 ml IVFLUSH [facility] Last Admin: 01/03/24 14:38 Dose: 3 ml Sodium Chloride (0.9 % Sodium Chloride Flush 3 Ml Syringe) 3 ml IVFLUSH [facility] Last Admin: 01/03/24 14:38 Dose: Not Given Home Medications ?Medication ?Instructions ?Recorded ?Confirmed ?Last Taken ?Type aspirin 325 mg tablet 650 mg PO DAILY PRN Pain 01/03/24 01/03/24 Unknown History Physical Exam 2 Vital Signs: Vital Signs: Last Vital Signs Temp 98 F 01/03/24 12:49 Pulse 86 01/03/24 15:33 Resp 19 01/03/24 15:33 BP 106/55 L 01/03/24 15:33 Pulse Ox 92 01/03/24 15:33 O2 Del Method Room Air 01/03/24 15:33 O2 Flow Rate 1 01/03/24 14:32 BMI result Body Mass Index 33.1 Const: General: cooperative HEENT: Head: Yes normal to inspection Face and sinus: Yes normal facial exam Mouth: Normal oral and palatal mucosa present Teeth and gingiva: d entition normal Eyes: General: appearance normal, both eyes and all related structures P upils: Equal, round and reactive pupils present Resp: Effort & Inspection: normal respiratory effort Cardio: Rate: regular rate Rhythm: regular rhythm GI: Palpation (GI): Soft to palpation and nontender : Other: right flank pain General: Yes no CVA tenderness Back/Spine/Pelvis: Back: no CVA tenderness Skin: General skin exam: no rashes or lesions noted Neuro: General: moves all extremities Cranial nerves: Yes Equal, round and reactive pupils present Extrem: General: Yes normal to inspection Psych: Appearance: grossly normal Results Labs 01/03/24 12:33 01/03/24 12:29 Labs: Short CBC 01/03/24 01/03/24 Range/Units 02:07 12:33 WBC 18.7 H 16.5 H (4.8-10.8) X10*3/uL Hgb 13.6 10.3 L D (12.0-16.0) g/dl Hct 40.3 30.5 L D (37.0-47.0) % Plt Count 282 234 (160-400) X10*3/uL BMP 01/03/24 01/03/24 01/03/24 02:07 03:50 12:29 Sodium 133 L 137 135 Potassium 4.2 3.6 3.6 Chloride 91 L 97 97 Carbon Dioxide 19 L 23 26 BUN 19 H 18 H 23 H Creatinine 1.43 H 1.19 1.45 H Calcium 9.4 8.5 D 8.5 Liver Function 01/03/24 01/03/24 Range/Units 02:07 12:29 Total Bilirubin 0.6 0.4 (0.0-1.0) mg/dL AST 10 15 (5-31) U/L ALT 8 9 (0-31) U/L Alkaline Phosphatase 124 H 99 (39-117) U/L Albumin 3.5 3.0 L (3.5-5.0) g/dL Urine 01/03/24 Range/Units 05:22 Urine Color Yellow Urine Appearance Turbid Urine pH 5.5 (5.0-9.0) Ur Specific [place] >= 1.030 H (1.005-1.025) Urine Protein 100 (2+) H (Neg-Trace) mg/dL Urine Glucose (UA) >=1000 H (Negative) mg/dL Microbiology Microbiology Results: Microbiology 01/03/24 02:09 Blood - Venous Blood Culture - Preliminary Prelim: GNR Gram Stain only 01/03/24 02:08 Blood - Venous Blood Culture - Preliminary Prelim: GNR Gram Stain only Assessment and Plan (1) Severe sepsis: Status: Acute (2) Acute pyelonephritis: Status: Acute Plan She has possible E coli or Klebsiella She has sepsis severe so will cover for resistant organisms Continue Zosyn for now Await cultures. Urology to see ,likely 10-14 days treatment.
[2024-01-03 20:18] LABS: Glucose, Whole Blood 318 mg/dL (60-115)
[2024-01-03] MEDS: Metoclopramide HCl 10 MG/2 ML VIAL IVPUSH (23:42)
[2024-01-04] VITALS (8 sets, daily range): BP systolic 107–139; BP diastolic 57–70; PULSE 90–101; RESP 17–20; TEMP 36.4–37.3; O2SAT 82–96
--- NOTE | 2024-01-04 | ECG_ITS ---
Test Reason : CHECK QTC Blood Pressure : / mmHG Vent. Rate : 088 BPM Atrial Rate : 088 BPM P-R Int : 172 ms QRS Dur : 126 ms QT Int : 410 ms P-R-T Axes : 046 -44 077 degrees QTc Int : 496 ms Normal sinus rhythm Left axis deviation Non-specific intra-ventricular conduction block Minimal voltage criteria for LVH, may be normal variant ( Abilio product ) Nonspecific T wave abnormality Abnormal ECG When compared with ECG of 03-JAN-2024 01:27, Nonspecific T wave abnormality now evident in Inferior leads Nonspecific T wave abnormality has replaced inverted T waves in Lateral leads Referred By: Duong Wray Electronically Signed By:Robbie Beyer
[2024-01-04] MEDS: Piperacillin Sodium/Tazobactam 3.375 GM in 0.9 % Sodium Chloride 50 ML IV (05:23)
[2024-01-04] MEDS: 0.9 % Sodium Chloride 1,000 ML 125 ML IVCONT (05:23)
[2024-01-04] MEDS: ondansetron HCL 4 MG/2 ML VIAL IVPUSH ×2 (05:35→20:22)
[2024-01-04 06:59] LABS: Glucose, Whole Blood 265 mg/dL (60-115)
[2024-01-04 07:52] LABS: Anion Gap 21 (12-20); Blood Urea Nitrogen 32 mg/dL (9-16); Calcium 8.2 mg/dL (8.4-10.2); Carbon Dioxide 16 mmol/L (22-29); Chloride 101 mmol/L (96-108); Estimated Glomerular Filt Rate 30; Glucose Random 273 mg/dL (60-115); Magnesium 1.7 mg/dL (1.6-2.6); Potassium 3.8 mmol/L (3.3-5.1); Sodium 134 mmol/L (135-145)
[2024-01-04] MEDS: Insulin Glargine,Hum.rec.anlog 100 UNIT/ML 10 ML VIAL 20 UNIT SUBCUT (09:00)
[2024-01-04] MEDS: Insulin Lispro 100 UNIT/ML 3 ML VIAL SUBCUT ×5 (09:00→20:22)
[2024-01-04 10:52] LABS: Glucose, Whole Blood 295 mg/dL (60-115)
--- NOTE | 2024-01-04 11:17 | P.PNIM_ITS ---
Subjective Subjective Date of Service: 01/04/24 Interval History: F/u sepsis d/t acute pyeloneophritis, gram negative kiko (GNR) bacteremia, PHUONG clinically making progress but renal function is worse, more acidotic, hypotension resolved. Physical Exam 2 Vital Signs: Vital Signs: Last Vital Signs Temp 98.7 F 01/04/24 10:57 Pulse 95 01/04/24 10:57 Resp 18 01/04/24 10:57 BP 110/58 L 01/04/24 10:57 Pulse Ox 96 01/04/24 10:57 O2 Del Method Nasal Cannula 01/04/24 10:57 O2 Flow Rate 2 01/04/24 10:57 BMI result Body Mass Index 33.1 Objective Data Active Medications Acetaminophen (Acetaminophen 325 Mg Tablet) 975 mg PO Q6H PRN PRN Reason: Pain, Mild (Pain Scale 1-3), fever or headache Last Admin: 01/03/24 14:36 Dose: 975 mg Documented By: BAKARI Calcium Carbonate (Calcium Carbonate 750 Mg Tab.Chew) 750 mg PO Q4H PRN PRN Reason: Heartburn Enoxaparin Sodium (Enoxaparin Sodium 40 Mg/0.4 Ml Syringe) 40 mg SUBCUT Q24H [facility] Last Admin: 01/04/24 09:01 Dose: Not Given Documented By: BAKARI Non-Admin Reason: Patient Refused Glucose (Glucose Gel 15 Gm Gel..Gram.) 15 gm PO Q15M PRN; Protocol PRN Reason: per Hypoglycemia Standing Ord. Sodium Chloride (Ns) 1,000 mls @ 125 mls/hr IVCONT .Q8H [facility] Last Admin: 01/04/24 05:23 Dose: 125 mls/hr Documented By: WILLIAM Dextrose (D10) 250 mls @ 750 mls/hr IV Q15M PRN; Protocol PRN Reason: per Hypoglycemia Standing Ord. Piperacillin Sod/Tazobactam (Sod 3.375 gm/ Sodium Chloride) 50 mls @ 100 mls/hr IV Q6H [facility] Last Infusion: 01/04/24 06:03 Dose: Infused Documented By: WILLIAM Insulin Glargine (Insulin Glargine,Hum.Rec.Anlog 100 Unit/Ml 10 Ml Vial) 20 unit SUBCUT DAILY [facility] Last Admin: 01/04/24 09:00 Dose: 20 unit Documented By: BAKARI Insulin Human Lispro (Insulin Lispro 100 Unit/Ml 3 Ml Vial) 0 unit SUBCUT PRAVEEN [facility]; Protocol Last Admin: 01/04/24 09:00 Dose: 8 unit Documented By: BAKARI Ketorolac Tromethamine (Ketorolac Tromethamine 15 Mg/Ml Vial) 15 mg IVPUSH Q6H PRN PRN Reason: Pain, Severe (Pain Scale 7-10) Last Admin: 01/03/24 08:06 Dose: 15 mg Documented By: BAKARI Magnesium Hydroxide (Milk Of Magnesia 30 Ml Oral.Susp) 30 ml PO DAILY PRN PRN Reason: Constipation Melatonin (Melatonin 3 Mg Tablet) 6 mg PO BEDTIME PRN PRN Reason: Insomnia Ondansetron HCl (Ondansetron Hcl 4 Mg/2 Ml Vial) 4 mg IVPUSH Q8H PRN PRN Reason: Nausea and Vomiting Last Admin: 01/04/24 05:35 Dose: 4 mg Documented By: WILLIAM Sodium Chloride (0.9 % Sodium Chloride Flush 3 Ml Syringe) 3 ml IVFLUSH [facility] Last Admin: 01/04/24 07:25 Dose: Not Given Documented By: BAKARI Non-Admin Reason: IV Running Sodium Chloride (0.9 % Sodium Chloride Flush 3 Ml Syringe) 3 ml IVFLUSH [facility] Last Admin: 01/04/24 07:25 Dose: Not Given Documented By: BAKARI Non-Admin Reason: IV Running Labs 01/03/24 12:33 01/04/24 12:15 Labs: Laboratory Results - last 24 hr 01/03/24 01/03/24 01/03/24 11:27 12:29 12:30 MCV MCH MCHC RDW Plt Count MPV Absolute Nucleated RBC Nucleated RBC % (auto) VBG pH VBG pCO2 VBG pO2 VBG HCO3 VBG O2 Saturation VBG Base Excess Anion Gap 16 Estim Creat Clear Calc 43.6 Estimated GFR 37 POC Glucose 309 H Random Glucose 363 H* Lactic Acid 2.8 H* Calcium 8.5 Magnesium Total Bilirubin 0.4 AST 15 ALT 9 Alkaline Phosphatase 99 Total Protein 5.8 L Albumin 3.0 L Beta-Hydroxybutyrate 1.39 H Random Cortisol 45.7 01/03/24 01/03/24 01/03/24 12:33 12:36 15:29 MCV 87.1 MCH 29.4 MCHC 33.8 RDW 15.5 Plt Count 234 MPV 10.3 Absolute Nucleated RBC 0.000 Nucleated RBC % (auto) 0.0 VBG pH 7.39 VBG pCO2 43 VBG pO2 38 VBG HCO3 26 VBG O2 Saturation 65.0 VBG Base Excess 1.4 Anion Gap Estim Creat Clear Calc Estimated GFR POC Glucose 365 H* Random Glucose Lactic Acid Calcium Magnesium Total Bilirubin AST ALT Alkaline Phosphatase Total Protein Albumin Beta-Hydroxybutyrate Random Cortisol 01/03/24 01/04/24 01/04/24 20:12 06:56 07:07 MCV MCH MCHC RDW Plt Count MPV Absolute Nucleated RBC Nucleated RBC % (auto) VBG pH VBG pCO2 VBG pO2 VBG HCO3 VBG O2 Saturation VBG Base Excess Anion Gap 21 H Estim Creat Clear Calc 37.0 Estimated GFR 30 POC Glucose 318 H 265 H Random Glucose 273 H Lactic Acid Calcium 8.2 L Magnesium 1.7 Total Bilirubin AST ALT Alkaline Phosphatase Total Protein Albumin Beta-Hydroxybutyrate Random Cortisol 01/04/24 10:48 MCV MCH MCHC RDW Plt Count MPV Absolute Nucleated RBC Nucleated RBC % (auto) VBG pH VBG pCO2 VBG pO2 VBG HCO3 VBG O2 Saturation VBG Base Excess Anion Gap Estim Creat Clear Calc Estimated GFR POC Glucose 295 H Random Glucose Lactic Acid Calcium Magnesium Total Bilirubin AST ALT Alkaline Phosphatase Total Protein Albumin Beta-Hydroxybutyrate Random Cortisol Microbiology Microbiology Results: Microbiology 01/03/24 02:09 Blood Culture - Preliminary Blood - Venous Gram negative kiko 01/03/24 02:08 Blood Culture - Preliminary Blood - Venous Gram negative kiko 01/03/24 Unknown Urine Culture - Final Urine clean catch - Clean Catch Midstream Assessment and Plan (1) Uncontrolled type 2 diabetes mellitus with hyperglycemia: Status: Acute (2) Severe sepsis: Status: Acute Plan 63/F admitted for Severe sepsis secondary to acute pyelonephritis, UTI and GNR bacteremia complicated transient hypotension, Sepsis resolved. -Continue Zosyn renally adjusted and wait for culture sensitivity PHUONG--likely related to Hypotension and renal hypoperfusion. BP is better -continue IVF and monitor BMP, adust meds accordingly Assymptomatic hypoxia--O2 sat droping into Low 80s, ? atelactasis vs ANA LAURA. CXR no acute finding, incentive spirometry, continue O2 with goal of 92 to [address] and possibly echo hypotesion episode -multifactorial-dehydration, hypo albuminemia. Resolved with IVF Nausea and vomiting, likely secondary to acute pyelonephritis. Resolved. Continue IV fluids. Continue therapy with antiemetic therapy . Uncontrolled type 2 diabetes mellitus with hyperglycemia. Hgb A1C is greater than 14. Not on meds at home. Anion gap is slightly up, with bicab down to 16. There could be component of hyperchloremic metabolic acidosis, acidosis related to renal failure and lactic acidosis. Add Pre-meal insulin, change to fluid to LR, check serum beta hyudroxy buturate. Follow glucose levels History of essential hypertension, not taking anti-HTN meds at the moment. BP stable. Continue to monitor for now. Obesity, class 1. BMI 37.7 kg/m2. Encourage weight loss, cutdown calories. DVT prophylaxis: Lovenox need for inpatient: Sepsis, bacteremia, PHUONG needs IV Abx, IVF Quality Stroke Does the patient have a stroke diagnosis?: No VTE Prior VTE?: No VTE Risk Level:: Medical - moderate - high VTE Device Contraindication: Treatment Not Indicated VTE Drug Contraindication: N/A - Med Ordered
[2024-01-04] MEDS: Piperacillin Sodium/Tazobactam 2.25 GM in 0.9 % Sodium Chloride 50 ML IV ×3 (12:13→23:18)
[2024-01-04] MEDS: Lactated Ringers 1,000 ML 150 ML IVCONT ×2 (12:13→18:32)
[2024-01-04 12:36] LABS: Lactic Acid 1.5 mmol/L (0.5-2.0)
[2024-01-04 12:45] LABS: Anion Gap 16 (12-20); Beta-Hydroxybutyrate 1.79 mmol/L (0.02-0.27); Blood Urea Nitrogen 34 mg/dL (9-16); Calcium 8.5 mg/dL (8.4-10.2); Carbon Dioxide 23 mmol/L (22-29); Chloride 98 mmol/L (96-108); Creatinine Clr Calc Pharmacy 29.4; Estimated Glomerular Filt Rate 23; Glucose Random 307 mg/dL (60-115); Potassium 3.4 mmol/L (3.3-5.1); Sodium 134 mmol/L (135-145)
[2024-01-04] MEDS: Acetaminophen 325 MG TABLET 975 MG PO (15:43)
[2024-01-04] MEDS: 0.9 % Sodium Chloride Flush 3 ML SYRINGE IVFLUSH ×2 (15:44→23:21)
[2024-01-04 16:00] LABS: Glucose, Whole Blood 267 mg/dL (60-115)
[2024-01-04 20:13] LABS: Glucose, Whole Blood 221 mg/dL (60-115)
[2024-01-04] MEDS: Ketorolac Tromethamine 15 MG/ML VIAL IVPUSH (20:21)
[2024-01-04] MEDS: diphenhydrAMINE HCL 50 MG/ML VIAL 12.5 MG IVPUSH (20:22)
[2024-01-05] VITALS: BP 114/55; PULSE 86; RESP 20; TEMP 36.5; O2SAT 94
[2024-01-05] MEDS: Acetaminophen 325 MG TABLET 975 MG PO ×3 (00:47→23:15)
[2024-01-05] MEDS: Metoclopramide HCl 10 MG/2 ML VIAL IVPUSH (00:58)
[2024-01-05] MEDS: diphenhydrAMINE HCL 50 MG/ML VIAL 12.5 MG IVPUSH ×2 (02:32→20:56)
[2024-01-05] MEDS: Lactated Ringers 1,000 ML 150 ML IVCONT ×4 (02:33→20:52)
[2024-01-05 03:17] VITALS: BP 101/54; PULSE 88; RESP 20; TEMP 36.5; O2SAT 91
[2024-01-05] MEDS: ondansetron HCL 4 MG/2 ML VIAL IVPUSH ×2 (04:46→16:53)
[2024-01-05] MEDS: Piperacillin Sodium/Tazobactam 2.25 GM in 0.9 % Sodium Chloride 50 ML IV ×2 (04:46→12:21)
[2024-01-05 06:24] LABS: Hematocrit 32.9 % (37.0-47.0); Hemoglobin 10.9 g/dl (12.0-16.0); Mean Corpuscular HGB Conc 33.1 g/dl (31.0-35.0); Mean Corpuscular Hemoglobin 28.8 pg (27.0-33.0); Mean Corpuscular Volume 86.8 fL (80.0-98.0); Mean Platelet Volume 10.8 fL (9.4-12.3); Platelet Count 244 X10*3/uL (160-400); Red Blood Count 3.79 X10*6/uL (4.20-5.50); Red Cell Distribution Width 15.9 % (11.0-16.0); White Blood Count 14.5 X10*3/uL (4.8-10.8)
[2024-01-05 06:42] LABS: Anion Gap 15 (12-20); Blood Urea Nitrogen 41 mg/dL (9-16); Calcium 8.2 mg/dL (8.4-10.2); Carbon Dioxide 23 mmol/L (22-29); Chloride 98 mmol/L (96-108); Creatinine Clr Calc Pharmacy 22.7; Estimated Glomerular Filt Rate 17; Glucose Random 182 mg/dL (60-115); Potassium 3.4 mmol/L (3.3-5.1); Sodium 133 mmol/L (135-145)
[2024-01-05 06:51] LABS: Glucose, Whole Blood 179 mg/dL (60-115)
[2024-01-05 07:02] VITALS: BP 121/69; PULSE 94; RESP 20; TEMP 36.7; O2SAT 97
[2024-01-05] MEDS: Insulin Lispro 100 UNIT/ML 3 ML VIAL SUBCUT ×4 (08:49→20:50)
[2024-01-05] MEDS: Insulin Glargine,Hum.rec.anlog 100 UNIT/ML 10 ML VIAL 20 UNIT SUBCUT (08:53)
--- NOTE | 2024-01-05 10:43 | MHC.CM.PN ---
Per ROUNDS discussion, Patient is not yet medically cleared for dc (Kidney Failure); home is the goal and CM will continue to follow.
[2024-01-05 10:51] LABS: Glucose, Whole Blood 199 mg/dL (60-115)
[2024-01-05 11:25] VITALS: BP 115/69; PULSE 94; RESP 18; TEMP 36.4; O2SAT 93
[2024-01-05] MEDS: 0.9 % Sodium Chloride Flush 3 ML SYRINGE IVFLUSH (11:30)
--- NOTE | 2024-01-05 13:18 | P.PNIM_ITS ---
Subjective Subjective Date of Service: 01/05/24 Interval History: F/u sepsis d/t acute pyeloneophritis, gram negative kiko (GNR) bacteremia, PHUONG She feels better and wants to go home but not clinically stable. Physical Exam 2 Vital Signs: Vital Signs: Last Vital Signs Temp 97.5 F 01/05/24 11:25 Pulse 94 01/05/24 11:25 Resp 18 01/05/24 11:25 BP 115/69 01/05/24 11:25 Pulse Ox 93 01/05/24 11:25 O2 Del Method Room Air 01/05/24 11:25 O2 Flow Rate 2 01/05/24 07:02 BMI result Body Mass Index 33.1 General: AO X 3, no acute distress Resp: CTA bilateral CVS: S1,S2,RRR GI: +BS, NT, no distention Skin: No rash Neuro: motor grossly intact Psych: appropriate affect Objective Data Active Medications Acetaminophen (Acetaminophen 325 Mg Tablet) 975 mg PO Q6H PRN PRN Reason: Pain, Mild (Pain Scale 1-3), fever or headache Last Admin: 01/05/24 12:19 Dose: 975 mg Documented By: NEGIN Calcium Carbonate (Calcium Carbonate 750 Mg Tab.Chew) 750 mg PO Q4H PRN PRN Reason: Heartburn Diphenhydramine HCl (Diphenhydramine Hcl 50 Mg/Ml Vial) 12.5 mg IVPUSH Q6H PRN PRN Reason: Nausea and Vomiting Last Admin: 01/05/24 02:32 Dose: 12.5 mg Documented By: JANY Enoxaparin Sodium (Enoxaparin Sodium 40 Mg/0.4 Ml Syringe) 40 mg SUBCUT Q24H [facility] Last Admin: 01/05/24 08:55 Dose: Not Given Documented By: NEGIN Non-Admin Reason: Patient Refused Glucose (Glucose Gel 15 Gm Gel..Gram.) 15 gm PO Q15M PRN; Protocol PRN Reason: per Hypoglycemia Standing Ord. Dextrose (D10) 250 mls @ 750 mls/hr IV Q15M PRN; Protocol PRN Reason: per Hypoglycemia Standing Ord. Lactated Ringer's (Lr) 1,000 mls @ 150 mls/hr IVCONT .Q6H40M [facility] Last Admin: 01/05/24 11:30 Dose: 150 mls/hr Documented By: NEGIN Insulin Glargine (Insulin Glargine,Hum.Rec.Anlog 100 Unit/Ml 10 Ml Vial) 20 unit SUBCUT DAILY [facility] Last Admin: 01/05/24 08:53 Dose: 20 unit Documented By: NEGIN Insulin Human Lispro (Insulin Lispro 100 Unit/Ml 3 Ml Vial) 0 unit SUBCUT QIDACHS [facility]; Protocol Last Admin: 01/05/24 12:20 Dose: 4 unit Documented By: NEGIN Insulin Human Lispro (Insulin Lispro 100 Unit/Ml 3 Ml Vial) [facility] Last Admin: 01/05/24 12:26 Dose: Not Given Documented By: NEGIN Non-Admin Reason: No Insulin Coverage Magnesium Hydroxide (Milk Of Magnesia 30 Ml Oral.Susp) 30 ml PO DAILY PRN PRN Reason: Constipation Melatonin (Melatonin 3 Mg Tablet) 6 mg PO BEDTIME PRN PRN Reason: Insomnia Ondansetron HCl (Ondansetron Hcl 4 Mg/2 Ml Vial) 4 mg IVPUSH Q8H PRN PRN Reason: Nausea and Vomiting Last Admin: 01/05/24 04:46 Dose: 4 mg Documented By: MARIPOSA-JOSÉ Sodium Chloride (0.9 % Sodium Chloride Flush 3 Ml Syringe) 3 ml IVFLUSH [facility] Last Admin: 01/05/24 11:30 Dose: 3 ml Documented By: NEGIN Labs 01/05/24 05:48 01/05/24 05:48 Labs: Laboratory Results - last 24 hr 01/04/24 01/04/24 01/05/24 15:57 19:57 05:48 MCV 86.8 MCH 28.8 MCHC 33.1 RDW 15.9 Plt Count 244 MPV 10.8 Absolute Nucleated RBC 0.000 Nucleated RBC % (auto) 0.0 Anion Gap 15 Estim Creat Clear Calc 22.7 Estimated GFR 17 POC Glucose 267 H 221 H Random Glucose 182 H Calcium 8.2 L 01/05/24 01/05/24 06:47 10:48 MCV MCH MCHC RDW Plt Count MPV Absolute Nucleated RBC Nucleated RBC % (auto) Anion Gap Estim Creat Clear Calc Estimated GFR POC Glucose 179 H 199 H Random Glucose Calcium Microbiology Microbiology Results: Microbiology 01/03/24 02:09 Blood Culture - Final Blood - Venous Escherichia coli 01/03/24 02:08 Blood Culture - Final Blood - Venous Escherichia coli 01/03/24 12:31 Blood Culture - Preliminary Blood - Venous No growth after 24 hours. 01/03/24 12:31 Blood Culture - Preliminary Blood - Venous No growth after 24 hours. Assessment and Plan (1) Uncontrolled type 2 diabetes mellitus with hyperglycemia: Status: Acute (2) Severe sepsis: Status: Acute Plan 63/F admitted for Severe sepsis secondary to acute pyelonephritis, UTI and GNR bacteremia complicated transient hypotension, Sepsis resolved. -Continue Zosyn renally adjusted and wait for culture sensitivity PHUONG--likely ATN related to Hypotension and renal hypoperfusion, Cr not yet peaked. BP is better -continue IVF and monitor BMP, adust meds accordingly. Nephrology consulted Assymptomatic hypoxia--O2 sat droping into Low 80s, ? atelactasis vs ANA LAURA. CXR no acute finding, incentive spirometry, continue O2 with goal of 92 to [address] and possibly echo if not improved, presently 93 RA, likely has hypoventilation obesity type hypotesion episode -multifactorial-dehydration, hypo albuminemia. Resolved with IVF Nausea and vomiting, likely secondary to acute pyelonephritis. Resolved. Continue IV fluids. Continue therapy with antiemetic therapy . Uncontrolled type 2 diabetes mellitus with hyperglycemia. Hgb A1C is greater than 14. Not on meds at home. No acidosis, she will likley need insulin at dc History of essential hypertension, not taking anti-HTN meds at the moment. BP stable. Continue to monitor for now. Obesity, class 1. BMI 37.7 kg/m2. Encourage weight loss, cutdown calories. DVT prophylaxis: Lovenox need for inpatient: Sepsis, bacteremia, PHUONG needs IV Abx, IVF Quality Stroke Does the patient have a stroke diagnosis?: No VTE Prior VTE?: No VTE Risk Level:: Medical - moderate - high VTE Device Contraindication: Treatment Not Indicated VTE Drug Contraindication: N/A - Med Ordered
--- NOTE | 2024-01-05 13:20 | P.CONNP_ITS ---
History of Present Illness Reason for Consult Consult date: 01/05/24 Reason for consult: PHUONG Chief Complaint Chief complaint: Uncontrolled Type 2 DM History of Present Illness Narrative: Maria L Guy is a 63 years old woman with type 2 diabetes mellitus and hypertension who presented to the emergency department complaining of right flank pain that started 2 days ago prior to presentation. The pain does not radiate and is associated with multiple events of non bloody vomiting and dizziness. She denied associated pain with urination, urinary frequency or bloody urine. She denies fever or chills. She has been taking aspirin at home without significant improvement of the pain. Denied being taking Tylenol or any other NSAIDs. Cardiopulmonary symptoms were denied. She denied tobacco smoking, alcohol abuse or illicit drug use. In the ER, she was found to have tachycardia with low-grade fever, 100.1. Her systolic blood pressure has been over 90. Blood workup is remarkable for leukocytosis of 18.7. Blood glucose was initially 637. Initial bicarb was 19, most recent is 23. Anion gap was 27 initially, most recent one is 21. Creatinine is also improving from 1.43 to 1.19. Lactic acid is increasing 2.3 --> 3.5. Venous pH is 7.40. Troponin is negative x2. Beta hydroxybutyric is elevated, 5.2. Urinalysis consistent with urinary tract infection. Viral testing for COVID-19, influenza RSV is negative. CXR is negative. Abdominal pelvis CT scan without IV contrast showed right asymmetric treated with periureteral stranding (no obstructing renal calculi) and hepatomegaly. She received LR 3 L bolus, ceftriaxone 1 g IV, ketorolac 15 mg IV, Zofran 4 mg IV, insulin R 30 units IV (total) in the ER and was admitted for further management. Nephrology has been consulted to assist in her clinical care during her current hospital stay. Review of Systems Review of Systems Yes all other systems are reviewed and are negative PMFSH Past Medical History Medical History Obesity Systolic heart failure Diabetes HTN (hypertension) Cardiomyopathy Family History Family History Father Cancer Mother No problems noted. Family history: reviewed and not pertinent Surgical History Surgical History History of appendectomy History of tonsillectomy History of hernia surgery Social History Social History Household Members: Spouse Housing: Apartment Do you presently have visiting nurse or other home services: No Patient Tobacco Use Status: Never used Tobacco Smoked in Last 30 Days: No e-Cigarette/Vaping Use: Never Used Use of substances other than those prescribed or required for medical reasons: No Currently Displaying Signs/Symptoms of Drug Intoxication Withdrawal: No Have you been hit, kicked, punched, or otherwise hurt by someone within the past year? If so, by whom?: No Do you feel safe in your current relationship?: Yes Is there a partner from a previous relationship who is making you feel unsafe now?: No Are you made to feel afraid or neglected: No Advance Directives: No Advance Directives Information Provided: Yes Do you have a plan to hurt others: No Plan Recently lost weight without trying: No Eating poorly because of decreased appetite: No Nutrition Risks: No Nutritional Risk Patient : No service: No Current occupational status: unemployed Meds Allergies Allergy/AdvReac Type Severity Reaction Status Date / Time codeine [CODEINE] Allergy Unknown UNKNOWN Verified 01/03/24 01:22 metoprolol [Toprol XL] Allergy Unknown Unknown Verified 01/03/24 01:22 lisinopril Allergy Unknown Verified 01/03/24 01:23 mold Allergy runny Verified 01/03/24 01:22 nose, watery eyes ragweed pollen Allergy runny Verified 01/03/24 01:22 nose, watery eyes Codeine Allergy Unknown Unknown Uncoded 01/03/24 01:22 codine Allergy Unknown Unknown Uncoded 01/03/24 01:22 Thelma Allergy Unknown Unknown Uncoded 01/03/24 01:22 Active Medications: Current Medications Acetaminophen (Acetaminophen 325 Mg Tablet) 975 mg PO Q6H PRN PRN Reason: Pain, Mild (Pain Scale 1-3), fever or headache Last Admin: 01/05/24 12:19 Dose: 975 mg Calcium Carbonate (Calcium Carbonate 750 Mg Tab.Chew) 750 mg PO Q4H PRN PRN Reason: Heartburn Diphenhydramine HCl (Diphenhydramine Hcl 50 Mg/Ml Vial) 12.5 mg IVPUSH Q6H PRN PRN Reason: Nausea and Vomiting Last Admin: 01/05/24 02:32 Dose: 12.5 mg Enoxaparin Sodium (Enoxaparin Sodium 40 Mg/0.4 Ml Syringe) 40 mg SUBCUT Q24H [facility] Last Admin: 01/05/24 08:55 Dose: Not Given Glucose (Glucose Gel 15 Gm Gel..Gram.) 15 gm PO Q15M PRN; Protocol PRN Reason: per Hypoglycemia Standing Ord. Dextrose (D10) 250 mls @ 750 mls/hr IV Q15M PRN; Protocol PRN Reason: per Hypoglycemia Standing Ord. Lactated Ringer's (Lr) 1,000 mls @ 150 mls/hr IVCONT .Q6H40M [facility] Last Admin: 01/05/24 11:30 Dose: 150 mls/hr Ceftriaxone Sodium 2 gm/ (Sodium Chloride) 50 mls @ 100 mls/hr IV Q24H [facility] Insulin Glargine (Insulin Glargine,Hum.Rec.Anlog 100 Unit/Ml 10 Ml Vial) 20 unit SUBCUT DAILY [facility] Last Admin: 01/05/24 08:53 Dose: 20 unit Insulin Human Lispro (Insulin Lispro 100 Unit/Ml 3 Ml Vial) 0 unit SUBCUT QIDACHS [facility]; Protocol Last Admin: 01/05/24 12:20 Dose: 4 unit Insulin Human Lispro (Insulin Lispro 100 Unit/Ml 3 Ml Vial) 5 unit SUBCUT QIDACHS [facility] Last Admin: 01/05/24 12:26 Dose: Not Given Magnesium Hydroxide (Milk Of Magnesia 30 Ml Oral.Susp) 30 ml PO DAILY PRN PRN Reason: Constipation Melatonin (Melatonin 3 Mg Tablet) 6 mg PO BEDTIME PRN PRN Reason: Insomnia Ondansetron HCl (Ondansetron Hcl 4 Mg/2 Ml Vial) 4 mg IVPUSH Q8H PRN PRN Reason: Nausea and Vomiting Last Admin: 01/05/24 04:46 Dose: 4 mg Sodium Chloride (0.9 % Sodium Chloride Flush 3 Ml Syringe) 3 ml IVFLUSH QSHIFT [facility] Last Admin: 01/05/24 11:30 Dose: 3 ml Home Medications ?Medication ?Instructions ?Recorded ?Confirmed ?Last Taken ?Type aspirin 325 mg tablet 650 mg PO DAILY PRN Pain 01/03/24 01/03/24 Unknown History Physical Exam Vital Signs: Last Vital Signs Temp 97.5 F 01/05/24 11:25 Pulse 94 01/05/24 11:25 Resp 18 01/05/24 11:25 BP 115/69 01/05/24 11:25 Pulse Ox 93 01/05/24 11:25 O2 Del Method Room Air 01/05/24 11:25 O2 Flow Rate 2 01/05/24 07:02 BMI result Body Mass Index 33.1 Const General: comfortable and no acute distress Orientation/consciousness: patient oriented x3 HEENT Head: Yes normocephalic Mouth: Normal oral and palatal mucosa present Eyes EOM: EOMs intact bilaterally Neck Neck: Yes supple Resp Auscultation: clear to auscultation bilaterally Cardio Jugular venous distension: no JVD Rate: regular rate GI Palpation (GI): Soft to palpation Auscultation: normal bowel sounds Skin General skin exam: no rashes or lesions noted Neuro General: patient oriented x3 and moves all extremities Extrem General: Yes no pedal edema Results Lab Results 01/05/24 05:48 01/05/24 05:48 Lab results: Chemistry 01/03/24 01/03/24 01/03/24 02:07 03:50 12:29 Sodium 133 L 137 135 Potassium 4.2 3.6 3.6 Carbon Dioxide 19 L 23 26 BUN 19 H 18 H 23 H Creatinine 1.43 H 1.19 1.45 H Calcium 9.4 8.5 D 8.5 01/04/24 01/04/24 01/05/24 07:07 12:15 05:48 Sodium 134 L 134 L 133 L Potassium 3.8 3.4 3.4 Carbon Dioxide 16 L 23 23 BUN 32 H 34 H 41 H Creatinine 1.71 H 2.15 H 2.78 H Calcium 8.2 L 8.5 8.2 L Hematology 01/03/24 01/03/24 01/05/24 02:07 12:33 05:48 WBC 18.7 H 16.5 H 14.5 H Hgb 13.6 10.3 L D 10.9 L Plt Count 282 234 244 Urinalysis 01/03/24 05:22 Urine Color Yellow Urine Appearance Turbid Urine pH 5.5 Ur Specific [place] >= 1.030 H Urine Protein 100 (2+) H Urine Glucose (UA) >=1000 H Urine Ketones 80 Urine Blood Small (1+) H Urine Nitrite Positive H Ur Leukocyte Esterase Moderate (2+) H Urine RBC 6-10 H Urine WBC >50 H Ur Squamous Epith Cells 0-2 Hyaline Casts 6-10 Assessment and Plan (1) Acute kidney injury: Status: Acute Plan PHUONG likely due to tubular injury Imaging studies showed enlarged right kidney Warrants a urology consultation Differential diagnosis includes coy infectious GN; AIN unlikely Also received Toradol in the ER when blood pressure was on the low side Serum creatinine now plateaued Shall order complement levels for now No indication for renal replacement Hopefully with continued supportive care, her renal functions will settled to baseline Further management is pending evolving data Procedures Date of Service Date of Service: 01/05/24
[2024-01-05] MEDS: cefTRIAXone sodium 2 GM in 0.9 % Sodium Chloride 50 ML IV (14:39)
[2024-01-05 15:22] VITALS: BP 102/61; PULSE 91; RESP 17; TEMP 36.4; O2SAT 94
[2024-01-05 16:14] LABS: Glucose, Whole Blood 201 mg/dL (60-115)
[2024-01-05 20:00] VITALS: BP 137/76; PULSE 92; RESP 20; TEMP 36.2; O2SAT 96
[2024-01-05 20:34] LABS: Glucose, Whole Blood 171 mg/dL (60-115)
[2024-01-06] VITALS (7 sets, daily range): BP systolic 121–153; BP diastolic 68–85; PULSE 87–95; RESP 16–20; TEMP 36.3–36.7; O2SAT 91–95
[2024-01-06] MEDS: Lactated Ringers 1,000 ML 150 ML IVCONT ×2 (03:08→09:52)
[2024-01-06 06:58] LABS: Hematocrit 27.6 % (37.0-47.0); Hemoglobin 8.8 g/dl (12.0-16.0); Mean Corpuscular HGB Conc 31.9 g/dl (31.0-35.0); Mean Corpuscular Hemoglobin 28.2 pg (27.0-33.0); Mean Corpuscular Volume 88.5 fL (80.0-98.0); Mean Platelet Volume 10.5 fL (9.4-12.3); Platelet Count 210 X10*3/uL (160-400); Red Blood Count 3.12 X10*6/uL (4.20-5.50); Red Cell Distribution Width 16.4 % (11.0-16.0); White Blood Count 9.7 X10*3/uL (4.8-10.8)
--- NOTE | 2024-01-06 07:00 | CA_ITS ---
Transthoracic Echocardiogram Patient (Last, First, Middle): Maria L Guy, Gender: Female Date of : 1960 Age: 63 Procedure Date: 01/06/2024 Procedure Type: Transthoracic E[place]ocardi[place] [facility] [place]: 162. cm Weight: 87.09 kg BSA: 1.92 m2 Heart Rate: 89 bpm BP: 144 / 78 mmHg Assistant Brand Manager: ETHAN Referring MD: Duong Wray MD Symptoms: SOB, ? CHF Study Quality: Fair Conclusions: - Moderately increased left ventricular cavity size. There is mildly increased left ventricular wall thickness. The left ventricular systolic function is moderate to severely decreased. The visually estimated ejection fraction is between 25-30%. - Normal right ventricular cavity size and systolic function. - There is mild dilatation of the ascending aorta measuring 3.90 cm. Findings Left Ventricle Moderately increased left ventricular cavity size. There is mildly increased left ventricular wall thickness. The left ventricular systolic function is moderate to severely decreased. The visually estimated ejection fraction is between 25-30%. There is moderate global hypokinesis. Diastolic function is indeterminate on the basis of available data. Right Ventricle Normal right ventricular cavity size and systolic function. Atria The left atrium is normal in size. The right atrium is normal in size. Aortic Valve Normal aortic valve structure and function. There is no aortic valve stenosis. There is no aortic valve regurgitation. Mitral Valve The mitral valve appears normal. There is trace mitral valve regurgitation. There is no mitral valve stenosis. Pulmonic Valve The pulmonic valve is normal. There is trace pulmonic valve regurgitation. Tricuspid Valve Likely normal tricuspid valve structure and function. Tricuspid regurgitation envelope is inadequate for calculation of right ventricular systolic pressure. Normal right atrial pressure. Great Vessels There is mild dilatation of the ascending aorta measuring 3.90 cm. The visualized portions of the pulmonary artery and branches are normal. Venous The inferior vena cava is normal in size and collapses greater than 50% with inspiration. Pericardium/Pleural There is no evidence of pericardial effusion. Prior Study Comparison Changes noted compared to prior study dated: 02/05/2021. LV dilated and EF 25 to 30%. Measurements 2D Linear Measurements IVSd: 1.05 0.6-0.9/0.6-1.0 cm LVIDd: 6.17 3.9-5.3/4.2-5.9 cm LVIDd Index: 3.21 2.4-3.2/2.2-3.1 cm/m2 LVIDs: 5.11 2.0-3.6 cm LVPWd: 1.11 0.7-1.1 cm LA Diam: 5.00 2.7-3.8/3.0-4.0 cm LAIDs Index: 2.60 1.5-2.3 cm/m2 LV Mass: 356.85 67-162/88-224 g LV Mass Index: 185.86 43-95/49-115 g/m2 LVOT Diam: 2.30 3.0+(-)1.3 cm 2D Systolic Function EF 4C: 52.20 >55% EF 2C: 29.70 >55% EF BiP: 38.10 >55% Mitral Valve E'Lateral: 3.92 E'Medial: 3.26 Aortic Valve AoV Pk William: 1.55 AoV Mn William: 1.13 AoV VTI: 0.31 AoV Pk Grad: 10.00 Aov Mn Grad: 6.00 LIZ Cont.VTI: 2.58 LVOT LVOT Pk William: 0.97 LVOT Mn William: 0.72 LVOT VTI: 0.19 LVOT Pk Grad: 4.00 LVOT Mn Grad: 2.00 LVOT Diam: 2.30 LVOT Area: 4.15 Diastolic Function E'Medial: 3.26 E' Laterial: 3.92 Right Ventricle TAPSE (mm): 20.30 TVS' William: 10.90 Tricuspid Valve RA Press: 3.00 Great Vessels Aorta Sinus of Valsalva: 3.20 2.0-3.5 cm Ao Asc: 3.90 2.1-3.4 cm Pulmonary Valve PV Pk William: 0.91 Peak PV Grad: 3.00 Updated in Other Vendor System with Status of Final Robbie Beyer MD electronically signed on 01/06/2024 3:12:58 PM with status of Final
[2024-01-06 07:14] LABS: Anion Gap 17 (12-20); Blood Urea Nitrogen 43 mg/dL (9-16); Carbon Dioxide 19 mmol/L (22-29); Chloride 101 mmol/L (96-108); Creatinine Clr Calc Pharmacy 23.2; Estimated Glomerular Filt Rate 18; Glucose Random 118 mg/dL (60-115); Potassium 4.4 mmol/L (3.3-5.1); Sodium 133 mmol/L (135-145)
[2024-01-06 07:25] LABS: Glucose, Whole Blood 137 mg/dL (60-115)
[2024-01-06] MEDS: Insulin Lispro 100 UNIT/ML 3 ML VIAL SUBCUT ×2 (08:06→17:48)
[2024-01-06] MEDS: Insulin Glargine,Hum.rec.anlog 100 UNIT/ML 10 ML VIAL 20 UNIT SUBCUT (08:06)
[2024-01-06] MEDS: Milk of Magnesia 30 ML ORAL.SUSP PO (09:48)
--- NOTE | 2024-01-06 09:58 | HO.PM.IMPN ---
Subjective Subjective Date of Service: 01/06/24 Interval History: F/u sepsis d/t acute pyeloneophritis, gram negative kiko (GNR) bacteremia, PHUONG Renal function unchnaged, diabetes is better controlled. Physical Exam Vital Signs: Vital Signs: Last Vital Signs Temp 97.9 F 01/06/24 07:11 Pulse 94 01/06/24 07:11 Resp 20 01/06/24 07:11 BP 144/79 H 01/06/24 07:11 Pulse Ox 95 01/06/24 07:11 O2 Del Method Nasal Cannula 01/06/24 07:11 O2 Flow Rate 2 01/06/24 07:11 BMI result Body Mass Index 33.1 General: AO X 3, no acute distress Resp: CTA bilateral CVS: S1,S2,RRR, 1+ leg edema GI: +BS, NT, no distention Skin: No rash Neuro: motor grossly intact Psych: appropriate affect Objective Data Active Medications Acetaminophen (Acetaminophen 325 Mg Tablet) 975 mg PO Q6H PRN PRN Reason: Pain, Mild (Pain Scale 1-3), fever or headache Last Admin: 01/05/24 23:15 Dose: 975 mg Documented By: MARBIN Calcium Carbonate (Calcium Carbonate 750 Mg Tab.Chew) 750 mg PO Q4H PRN PRN Reason: Heartburn Diphenhydramine HCl (Diphenhydramine Hcl 50 Mg/Ml Vial) 12.5 mg IVPUSH Q6H PRN PRN Reason: Nausea and Vomiting Last Admin: 01/05/24 20:56 Dose: 12.5 mg Documented By: MARBIN Enoxaparin Sodium (Enoxaparin Sodium 40 Mg/0.4 Ml Syringe) 40 mg SUBCUT Q24H [facility] [place] Last Admin: 01/06/24 08:15 Dose: Not Given Documented By: ELOISA Non-Admin Reason: Patient Refused Glucose (Glucose Gel 15 Gm Gel..Gram.) 15 gm PO Q15M PRN; Protocol PRN Reason: per Hypoglycemia Standing Ord. Dextrose (D10) 250 mls @ 750 mls/hr IV Q15M PRN; Protocol PRN Reason: per Hypoglycemia Standing Ord. Lactated Ringer's (Lr) 1,000 mls @ 150 mls/hr IVCONT .Q6H40M [facility] [place] Last Admin: 01/06/24 09:52 Dose: 150 mls/hr Documented By: ELOISA Ceftriaxone Sodium 2 gm/ (Sodium Chloride) 50 mls @ 100 mls/hr IV Q24H [facility] [place] Last Infusion: 01/05/24 15:11 Dose: Infused Documented By: NEGIN Insulin Glargine (Insulin Glargine,Hum.Rec.Anlog 100 Unit/Ml 10 Ml Vial) 20 unit SUBCUT DAILY [facility] [place] Last Admin: 01/06/24 08:06 Dose: 20 unit Documented By: ELOISA Insulin Human Lispro (Insulin Lispro 100 Unit/Ml 3 Ml Vial) 0 unit SUBCUT QIDACHS [facility] [place]; Protocol Last Admin: 01/06/24 08:06 Dose: 2 unit Documented By: ELOISA Insulin Human Lispro (Insulin Lispro 100 Unit/Ml 3 Ml Vial) 5 unit SUBCUT QIDACHS [facility] [place] Last Admin: 01/06/24 08:14 Dose: Not Given Documented By: ELOISA Non-Admin Reason: No Insulin Coverage Magnesium Hydroxide (Milk Of Magnesia 30 Ml Oral.Susp) 30 ml PO DAILY PRN PRN Reason: Constipation Last Admin: 01/06/24 09:48 Dose: 30 ml Documented By: ELOISA Melatonin (Melatonin 3 Mg Tablet) 6 mg PO BEDTIME PRN PRN Reason: Insomnia Ondansetron HCl (Ondansetron Hcl 4 Mg/2 Ml Vial) 4 mg IVPUSH Q8H PRN PRN Reason: Nausea and Vomiting Last Admin: 01/05/24 16:53 Dose: 4 mg Documented By: ZAK Sodium Chloride (0.9 % Sodium Chloride Flush 3 Ml Syringe) 3 ml IVFLUSH QSHIFT [facility] [place] Last Admin: 01/06/24 08:07 Dose: Not Given Documented By: ELOISA Non-Admin Reason: IV Running Labs 01/06/24 06:16 01/06/24 06:16 Labs: Laboratory Results - last 24 hr 01/05/24 01/05/24 01/05/24 10:48 16:11 20:30 MCV MCH MCHC RDW Plt Count MPV Absolute Nucleated RBC Nucleated RBC % (auto) Anion Gap Estim Creat Clear Calc Estimated GFR POC Glucose 199 H 201 H 171 H Random Glucose Calcium 01/06/24 01/06/24 06:16 07:21 MCV 88.5 MCH 28.2 MCHC 31.9 RDW 16.4 H Plt Count 210 MPV 10.5 Absolute Nucleated RBC 0.000 Nucleated RBC % (auto) 0.0 Anion Gap 17 Estim Creat Clear Calc 23.2 Estimated GFR 18 POC Glucose 137 H Random Glucose 118 H Calcium 8.0 L Microbiology Microbiology Results: Microbiology 01/03/24 12:31 Blood Culture - Preliminary Blood - Venous No growth after 48 hours. 01/03/24 12:31 Blood Culture - Preliminary Blood - Venous No growth after 48 hours. 01/03/24 02:09 Blood Culture - Final Blood - Venous Escherichia coli 01/03/24 02:08 Blood Culture - Final Blood - Venous Escherichia coli Assessment and Plan (1) Severe sepsis: Status: Acute (2) Acute kidney injury: Status: Acute Plan 63/F admitted for Severe sepsis secondary to acute pyelonephritis, UTI and E.coli bacteremia complicated transient hypotension, Sepsis resolved. -Zosyn since admission, replaced with Ceftriaxone 2 gram daily starting 01/04 to cover E.coli PHUONG--likely ATN related to Hypotension and renal hypoperfusion, Cr peaked and stable. Hypotension resovved -continue IVF and monitor BMP, adust meds accordingly. Nephrology to guide further management. -Urology consult for Right asymmetric hydroureter with periureteral stranding. Mild metabolic acidois d/t PHUONG, monitor, PO Bicab if worse Assymptomatic hypoxia--O2 sat droping into Low 80s, ? atelactasis vs ANA LAURA. CXR no acute finding, incentive spirometry, continue O2 with goal of 92 to [address] and possibly echo if not improved, presently 93 RA, likely has hypoventilation obesity type. Get Echo, check BNP hypotesion episode -multifactorial-dehydration, hypo albuminemia. Resolved with IVF. Echo to assess heart function Nausea and vomiting, likely secondary to acute pyelonephritis. Resolved. Continue IV fluids. Continue antiemetic therapy . Uncontrolled type 2 diabetes mellitus with hyperglycemia. Hgb A1C is greater than 14. Not on meds at home. No acidosis, she will likley need insulin at dc,overall better History of essential hypertension, not taking anti-HTN meds at the moment. BP stable. Continue to monitor for now. Obesity, class 1. BMI 37.7 kg/m2. Encourage weight loss, cutdown calories. DVT prophylaxis: Lovenox need for inpatient: Sepsis, bacteremia, PHUONG needs IV Abx, IVF Quality Stroke Does the patient have a stroke diagnosis?: No VTE Prior VTE?: No VTE Risk Level:: Medical - moderate - high VTE Device Contraindication: Treatment Not Indicated VTE Drug Contraindication: N/A - Med Ordered
[2024-01-06 11:10] LABS: Glucose, Whole Blood 164 mg/dL (60-115)
[2024-01-06 11:13] LABS: B Type Natriuretic Peptide 882 pg/mL (<100)
--- NOTE | 2024-01-06 12:31 | PM.UROCN ---
History of Present Illness Consult details Consult date: 01/06/24 Narrative: 63 years old woman with type 2 diabetes mellitus and hypertension who presented to the emergency department complaining of right flank pain that started 2 days ago prior to presentation. The pain does not radiate and is associated with multiple events of non bloody vomiting and dizziness. She denied associated pain with urination, urinary frequency or bloody urine. She denies fever or chills. She has been taking aspirin at home without significant improvement of the pain. Denied being taking Tylenol or any other NSAIDs. Cardiopulmonary symptoms were denied. She denied tobacco smoking, alcohol abuse or illicit drug use. In the ER, she was found to have tachycardia with low-grade fever, 100.1. Her systolic blood pressure has been over 90. Blood workup is remarkable for leukocytosis of 18.7. Blood glucose was initially 637. Review of Systems Review of Systems: 10 point ROS neg other than stated in [facility] Past Medical History Medical History Obesity Systolic heart failure Diabetes HTN (hypertension) Cardiomyopathy Family History Family History Father Cancer Mother No problems noted. Family history: reviewed and not pertinent Surgical History Surgical History History of appendectomy History of tonsillectomy History of hernia surgery Social History Social History Household Members: Spouse Housing: Apartment Do you presently have visiting nurse or other home services: No Patient Tobacco Use Status: Never used Tobacco e-Cigarette/Vaping Use: Never Used service: No Current occupational status: unemployed Meds Allergies Allergy/AdvReac Type Severity Reaction Status Date / Time codeine [CODEINE] Allergy Unknown UNKNOWN Verified 01/03/24 01:22 metoprolol [Toprol XL] Allergy Unknown Unknown Verified 01/03/24 01:22 lisinopril Allergy Unknown Verified 01/03/24 01:23 mold Allergy runny Verified 01/03/24 01:22 nose, watery eyes ragweed pollen Allergy runny Verified 01/03/24 01:22 nose, watery eyes Codeine Allergy Unknown Unknown Uncoded 01/03/24 01:22 codine Allergy Unknown Unknown Uncoded 01/03/24 01:22 [place] Allergy Unknown Unknown Uncoded 01/03/24 01:22 Active Medications: Current Medications Acetaminophen (Acetaminophen 325 Mg Tablet) 975 mg PO Q6H PRN PRN Reason: Pain, Mild (Pain Scale 1-3), fever or headache Last Admin: 01/05/24 23:15 Dose: 975 mg Calcium Carbonate (Calcium Carbonate 750 Mg Tab.Chew) 750 mg PO Q4H PRN PRN Reason: Heartburn Diphenhydramine HCl (Diphenhydramine Hcl 50 Mg/Ml Vial) 12.5 mg IVPUSH Q6H PRN PRN Reason: Nausea and Vomiting Last Admin: 01/05/24 20:56 Dose: 12.5 mg Enoxaparin Sodium (Enoxaparin Sodium 30 Mg/0.3 Ml Syringe) 30 mg SUBCUT Q24H [facility] Glucose (Glucose Gel 15 Gm Gel..Gram.) 15 gm PO Q15M PRN; Protocol PRN Reason: per Hypoglycemia Standing Ord. Dextrose (D10) 250 mls @ 750 mls/hr IV Q15M PRN; Protocol PRN Reason: per Hypoglycemia Standing Ord. Ceftriaxone Sodium 2 gm/ (Sodium Chloride) 50 mls @ 100 mls/hr IV Q24H [facility] Last Infusion: 01/05/24 15:11 Dose: Infused Insulin Glargine (Insulin Glargine,Hum.Rec.Anlog 100 Unit/Ml 10 Ml Vial) 20 unit SUBCUT DAILY [facility] Last Admin: 01/06/24 08:06 Dose: 20 unit Insulin Human Lispro (Insulin Lispro 100 Unit/Ml 3 Ml Vial) 0 unit SUBCUT QIDACHS [facility]; Protocol Last Admin: 01/06/24 08:06 Dose: 2 unit Insulin Human Lispro (Insulin Lispro 100 Unit/Ml 3 Ml Vial) 5 unit SUBCUT QIDACHS [facility] Last Admin: 01/06/24 08:14 Dose: Not Given Magnesium Hydroxide (Milk Of Magnesia 30 Ml Oral.Susp) 30 ml PO DAILY PRN PRN Reason: Constipation Last Admin: 01/06/24 09:48 Dose: 30 ml Melatonin (Melatonin 3 Mg Tablet) 6 mg PO BEDTIME PRN PRN Reason: Insomnia Ondansetron HCl (Ondansetron Hcl 4 Mg/2 Ml Vial) 4 mg IVPUSH Q8H PRN PRN Reason: Nausea and Vomiting Last Admin: 01/05/24 16:53 Dose: 4 mg Sodium Chloride (0.9 % Sodium Chloride Flush 3 Ml Syringe) 3 ml IVFLUSH QSHIFT [facility] Last Admin: 01/06/24 08:07 Dose: Not Given Physical Exam Vital Signs: Vital Signs: Last Vital Signs Temp 97.6 F 01/06/24 11:16 Pulse 89 01/06/24 11:16 Resp 18 01/06/24 11:16 BP 131/70 01/06/24 11:16 Pulse Ox 94 01/06/24 11:16 O2 Del Method Room Air 01/06/24 11:16 O2 Flow Rate 2 01/06/24 07:11 BMI result Body Mass Index 33.1 Results Labs 01/07/24 05:36 01/08/24 06:11 Labs: Abnormal lab results 01/05/24 01/05/24 01/06/24 Range/Units 16:11 20:30 06:16 RBC 3.12 L (4.20-5.50) X10*6/uL Hgb 8.8 L (12.0-16.0) g/dl Hct 27.6 L (37.0-47.0) % RDW 16.4 H (11.0-16.0) % Sodium 133 L (135-145) mmol/L Carbon Dioxide 19 L (22-29) mmol/L BUN 43 H (9-16) mg/dL Creatinine 2.72 H (0.5-1.4) mg/dL POC Glucose 201 H 171 H (60-115) mg/dL Random Glucose 118 H (60-115) mg/dL Calcium 8.0 L (8.4-10.2) mg/dL B-Natriuretic Peptide (<100) pg/mL 01/06/24 01/06/24 01/06/24 Range/Units 07:21 10:38 11:06 RBC (4.20-5.50) X10*6/uL Hgb (12.0-16.0) g/dl Hct (37.0-47.0) % RDW (11.0-16.0) % Sodium (135-145) mmol/L Carbon Dioxide (22-29) mmol/L BUN (9-16) mg/dL Creatinine (0.5-1.4) mg/dL POC Glucose 137 H 164 H (60-115) mg/dL Random Glucose (60-115) mg/dL Calcium (8.4-10.2) mg/dL B-Natriuretic Peptide 882 H (<100) pg/mL Short CBC 01/06/24 Range/Units 06:16 WBC 9.7 (4.8-10.8) X10*3/uL Hgb 8.8 L (12.0-16.0) g/dl Hct 27.6 L (37.0-47.0) % Plt Count 210 (160-400) X10*3/uL BMP 01/06/24 06:16 Sodium 133 L Potassium 4.4 D Chloride 101 Carbon Dioxide 19 L BUN 43 H Creatinine 2.72 H Calcium 8.0 L Urine 01/03/24 Range/Units 05:22 Urine Color Yellow Urine Appearance Turbid Urine pH 5.5 (5.0-9.0) Ur Specific [place] >= 1.030 H (1.005-1.025) Urine Protein 100 (2+) H (Neg-Trace) mg/dL Urine Glucose (UA) >=1000 H (Negative) mg/dL All other labs normal. Imaging Additional studies: Date of Service: 01/03/24 EXAMINATION: CT ABDOMEN AND PELVIS WITHOUT IV CONTRAST CLINICAL INFORMATION: Right flank pain COMPARISON: None TECHNIQUE: Multiple axial images were obtained from the superior aspect of the liver through the pubic symphysis without intravenous contrast. Images were evaluated on independent dedicated 3-D workstation and 3-D images were reconstructed with concurrent radiologist supervision and subsequently interpreted. Oral contrast was not administered. This CT examination was performed using dose optimization techniques as appropriate, variously including the following: *Automated exposure control *Adjustment of mA and/or kV according to patient size (this includes techniques or standardized protocols for targeted exams where dose is matched to indication/reason for exam; i.e. extremities or head) *Use of iterative reconstruction technique DLP: 665 mGy-cm FINDINGS: LUNG BASES: The visualized lung bases are clear. CARDIOMEDIASTINUM: The visualized heart is normal in size without pericardial effusion. No coronary artery calcification. LIVER: Enlarged measuring 20 cm in the midclavicular line. Homogeneous in attenuation. GALLBLADDER: Ill-defined borders of the gallbladder is felt to be related to respiratory motion artifact. No cholelithiasis. BILIARY SYSTEM: No intrahepatic or extrahepatic biliary dilation. PANCREAS: Homogeneous in attenuation. SPLEEN: Normal in size. GENITOURINARY: Asymmetric enlargement of the right kidney. Right hydroureter with periureteral ureteral stranding throughout its entire course. No perinephric stranding. No perinephric fluid collection. No renal calculi. No renal calculi or hydroureteronephrosis on the left. Urinary bladder fluid-filled. ADRENAL GLANDS: Unremarkable. REPRODUCTIVE: Anteverted uterus. No solid adnexal masses. GASTROINTESTINAL: Hiatal hernia. The visualized alimentary tract is normal in course. No evidence of obstruction. APPENDIX: The appendix is not visualized; however, no pericecal inflammatory changes are seen in the right lower quadrant. PERITONEUM: No pneumoperitoneum. No intra-abdominal fluid collection. VASCULATURE: No abdominal aortic aneurysm. LYMPH NODES: No pathologically enlarged abdominal or pelvic lymph nodes. SOFT TISSUES/MUSCULOSKELETAL: There is no acute fracture or significant focal osseous lesion. IMPRESSION: 1. Right asymmetric hydroureter with periureteral stranding. No calcified obstructing calculus identified. 2. Hepatomegaly. Assessment and Plan (1) Acute pyelonephritis: Status: Resolved (2) Nausea & vomiting: Status: Resolved (3) Hydroureter on right: Status: Resolved Plan Nephrology following Fluid replacement IV abx for UTI/pyelo, no surgical intervention indicated at this time Procedures Date of Service Date of Service: 02/05/24
--- NOTE | 2024-01-06 13:38 | P.PNNP_ITS ---
Subjective Subjective Date of Service: 01/06/24 Interval history: Events noted Feels better. F/u sepsis d/t acute pyeloneophritis, gram negative kiko (GNR) bacteremia, PHUONG Physical Exam 2 Vital Signs: Vital Signs: Last Vital Signs Temp 97.6 F 01/06/24 11:16 Pulse 89 01/06/24 11:16 Resp 18 01/06/24 11:16 BP 131/70 01/06/24 11:16 Pulse Ox 94 01/06/24 11:16 O2 Del Method Room Air 01/06/24 11:16 O2 Flow Rate 2 01/06/24 07:11 BMI result Body Mass Index 33.1 Awake. Comfortable. Neck is supple. Mucosa moist. Lungs clear Heart S1-S2 heard no gallop. Abdomen soft. Extremities no edema. No involuntary movements. No myoclonus. Objective Data Labs 01/06/24 06:16 01/06/24 06:16 Labs: Laboratory Results - last 24 hr 01/05/24 01/05/24 01/06/24 16:11 20:30 06:16 WBC 9.7 RBC 3.12 L Hgb 8.8 L Hct 27.6 L MCV 88.5 MCH 28.2 MCHC 31.9 RDW 16.4 H Plt Count 210 MPV 10.5 Absolute Nucleated RBC 0.000 Nucleated RBC % (auto) 0.0 Sodium 133 L Potassium 4.4 D Chloride 101 Carbon Dioxide 19 L Anion Gap 17 BUN 43 H Creatinine 2.72 H Estim Creat Clear Calc 23.2 Estimated GFR 18 POC Glucose 201 H 171 H Random Glucose 118 H Calcium 8.0 L B-Natriuretic Peptide 01/06/24 01/06/24 01/06/24 07:21 10:38 11:06 WBC RBC Hgb Hct MCV MCH MCHC RDW Plt Count MPV Absolute Nucleated RBC Nucleated RBC % (auto) Sodium Potassium Chloride Carbon Dioxide Anion Gap BUN Creatinine Estim Creat Clear Calc Estimated GFR POC Glucose 137 H 164 H Random Glucose Calcium B-Natriuretic Peptide 882 H Microbiology Microbiology Results: Microbiology 01/03/24 12:31 Blood - Venous Blood Culture - Preliminary No growth after 48 hours. 01/03/24 12:31 Blood - Venous Blood Culture - Preliminary No growth after 48 hours. 01/03/24 02:09 Blood - Venous Blood Culture - Final Escherichia coli 01/03/24 02:08 Blood - Venous Blood Culture - Final Escherichia coli 01/03/24 Unknown Urine clean catch - Clean Catch Midstream Urine Culture - Final Procedures Date of Service Date of Service: 01/06/24 Assessment & Plan Assessment and plan (1) Acute kidney injury: Status: Acute Plan PHUONG likely due to tubular injury Imaging studies showed enlarged right kidney Warrants a urology consultation Differential diagnosis includes coy infectious GN; AIN unlikely Also received Toradol in the ER when blood pressure was on the low side Serum creatinine is marginally better complement levels are pending No indication for renal replacement Continue supportive care, her renal functions will settled to baseline Further management is pending evolving data Time Spent With Patient Time: Total time managing care of this patient today ____ minutes. Progress Note: Quality Stroke Does the patient have a stroke diagnosis?: No
[2024-01-06 15:51] LABS: Glucose, Whole Blood 161 mg/dL (60-115)
[2024-01-06] MEDS: cefTRIAXone sodium 2 GM in 0.9 % Sodium Chloride 50 ML IV (15:54)
[2024-01-06] MEDS: 0.9 % Sodium Chloride Flush 3 ML SYRINGE IVFLUSH ×2 (15:54→20:47)
[2024-01-06] MEDS: Furosemide 40 MG/4 ML VIAL IVPUSH (17:48)
[2024-01-06 19:38] LABS: CDiff Gene PCR NEGATIVE (Negative)
[2024-01-06] MEDS: Calcium Carbonate 750 MG TAB.CHEW PO (20:43)
[2024-01-06 20:44] LABS: Glucose, Whole Blood 125 mg/dL (60-115)
[2024-01-06] MEDS: diphenhydrAMINE HCL 50 MG/ML VIAL 12.5 MG IVPUSH (20:47)
[2024-01-07 03:31] VITALS: BP 143/83; PULSE 88; RESP 23; TEMP 36.3; O2SAT 90
[2024-01-07 06:49] LABS: Anion Gap 14 (12-20); Blood Urea Nitrogen 58 mg/dL (9-16); Calcium 7.8 mg/dL (8.4-10.2); Carbon Dioxide 22 mmol/L (22-29); Chloride 102 mmol/L (96-108); Creatinine Clr Calc Pharmacy 17.2; Estimated Glomerular Filt Rate 13; Glucose Random 129 mg/dL (60-115); Potassium 3.4 mmol/L (3.3-5.1); Sodium 135 mmol/L (135-145)
[2024-01-07 06:56] LABS: Glucose, Whole Blood 122 mg/dL (60-115)
[2024-01-07 07:11] LABS: MANUAL DIFF FLAG NO
[2024-01-07 07:13] VITALS: BP 137/77; PULSE 95; RESP 18; TEMP 36.2; O2SAT 95
[2024-01-07 07:14] LABS: Basophils Absolute Auto 0.1 X10*3/uL (0.0-0.2); Basophils Percent Auto 0.7 % (0-2); Eosinophils Absolute Auto 0.1 X10*3/uL (0.0-0.4); Eosinophils Percent Auto 1.2 % (0-4); Hematocrit 37.5 % (37.0-47.0); Hemoglobin 12.3 g/dl (12.0-16.0); Imm Gran Abs Auto 0.34 X10*3/uL (0.00-0.03); Imm Gran Pct Auto 3.4 % (0.0-0.4); Lymphocytes Absolute Auto 1.6 X10*3/uL (1.2-4.9); Lymphocytes Percent Auto 15.7 % (20-40); Mean Corpuscular HGB Conc 32.8 g/dl (31.0-35.0); Mean Corpuscular Hemoglobin 28.3 pg (27.0-33.0); Mean Corpuscular Volume 86.2 fL (80.0-98.0); Mean Platelet Volume 10.3 fL (9.4-12.3); Monocytes Absolute Auto 0.8 X10*3/uL (0.1-1.2); Monocytes Percent Auto 8.4 % (2-11); Neutrophils Absolute Auto 7.1 x10*3/uL (2.0-8.3); Neutrophils Percent Auto 70.6 % (45-73); Platelet Count 286 X10*3/uL (160-400); Red Blood Count 4.35 X10*6/uL (4.20-5.50); Red Cell Distribution Width 16.4 % (11.0-16.0)
[2024-01-07] MEDS: Insulin Glargine,Hum.rec.anlog 100 UNIT/ML 10 ML VIAL 20 UNIT SUBCUT (08:16)
[2024-01-07] MEDS: Insulin Lispro 100 UNIT/ML 3 ML VIAL SUBCUT ×4 (08:17→20:30)
[2024-01-07] MEDS: 0.9 % Sodium Chloride Flush 3 ML SYRINGE IVFLUSH ×3 (08:21→20:46)
--- NOTE | 2024-01-07 08:57 | P.CONCA_ITS ---
History of Present Illness History of Present Illness Date of Service: 01/07/24 Requesting physician: Duong Wray Chief complaint: Cardiomyopathy Narrative: [age] year female with uncontrolled diabetes presenting for elevated sugars and kidney injury. She has underlying CKD. We have been consulted because she has dilated left ventricular with moderate to severe LV dysfunction. Clinically she is denying any congestive heart failure symptoms. No orthopnea or PND. No shortness of breath. No peripheral edema currently. Creatinine has worsened today. She is currently not on any ARB/PERI. No chest discomfort or any anginal symptoms. [facility] Past Medical History Medical History Obesity Systolic heart failure Diabetes HTN (hypertension) Cardiomyopathy Family History Family History Father Cancer Mother No problems noted. Family history: reviewed and not pertinent Surgical History Surgical History History of appendectomy History of tonsillectomy History of hernia surgery Social History Social History Household Members: Spouse Housing: Apartment Do you presently have visiting nurse or other home services: No Patient Tobacco Use Status: Never used Tobacco Smoked in Last 30 Days: No e-Cigarette/Vaping Use: Never Used Use of substances other than those prescribed or required for medical reasons: No Currently Displaying Signs/Symptoms of Drug Intoxication Withdrawal: No Have you been hit, kicked, punched, or otherwise hurt by someone within the past year? If so, by whom?: No Do you feel safe in your current relationship?: Yes Is there a partner from a previous relationship who is making you feel unsafe now?: No Are you made to feel afraid or neglected: No Advance Directives: No Advance Directives Information Provided: Yes Do you have a plan to hurt others: No Plan Recently lost weight without trying: No Eating poorly because of decreased appetite: No Nutrition Risks: No Nutritional Risk Patient : No service: No Current occupational status: unemployed Meds Allergies Allergy/AdvReac Type Severity Reaction Status Date / Time codeine [CODEINE] Allergy Unknown UNKNOWN Verified 01/03/24 01:22 metoprolol [Toprol XL] Allergy Unknown Unknown Verified 01/03/24 01:22 lisinopril Allergy Unknown Verified 01/03/24 01:23 mold Allergy runny Verified 01/03/24 01:22 nose, watery eyes ragweed pollen Allergy runny Verified 01/03/24 01:22 nose, watery eyes Codeine Allergy Unknown Unknown Uncoded 01/03/24 01:22 codine Allergy Unknown Unknown Uncoded 01/03/24 01:22 Stollings Allergy Unknown Unknown Uncoded 01/03/24 01:22 Active Medications: Current Medications Acetaminophen (Acetaminophen 325 Mg Tablet) 975 mg PO Q6H PRN PRN Reason: Pain, Mild (Pain Scale 1-3), fever or headache Last Admin: 01/05/24 23:15 Dose: 975 mg Calcium Carbonate (Calcium Carbonate 750 Mg Tab.Chew) 750 mg PO Q4H PRN PRN Reason: Heartburn Last Admin: 01/06/24 20:43 Dose: 750 mg Diphenhydramine HCl (Diphenhydramine Hcl 50 Mg/Ml Vial) 12.5 mg IVPUSH Q6H PRN PRN Reason: Nausea and Vomiting Last Admin: 01/06/24 20:47 Dose: 12.5 mg Enoxaparin Sodium (Enoxaparin Sodium 30 Mg/0.3 Ml Syringe) 30 mg SUBCUT Q24H [facility] Glucose (Glucose Gel 15 Gm Gel..Gram.) 15 gm PO Q15M PRN; Protocol PRN Reason: per Hypoglycemia Standing Ord. Dextrose (D10) 250 mls @ 750 mls/hr IV Q15M PRN; Protocol PRN Reason: per Hypoglycemia Standing Ord. Ceftriaxone Sodium 2 gm/ (Sodium Chloride) 50 mls @ 100 mls/hr IV Q24H [facility] Last Infusion: 01/06/24 17:48 Dose: Infused Insulin Glargine (Insulin Glargine,Hum.Rec.Anlog 100 Unit/Ml 10 Ml Vial) 20 unit SUBCUT DAILY [facility] Last Admin: 01/07/24 08:16 Dose: 20 unit Insulin Human Lispro (Insulin Lispro 100 Unit/Ml 3 Ml Vial) 0 unit SUBCUT QIDACHS [facility]; Protocol Last Admin: 01/07/24 08:17 Dose: 2 unit Magnesium Hydroxide (Milk Of Magnesia 30 Ml Oral.Susp) 30 ml PO DAILY PRN PRN Reason: Constipation Last Admin: 01/06/24 09:48 Dose: 30 ml Melatonin (Melatonin 3 Mg Tablet) 6 mg PO BEDTIME PRN PRN Reason: Insomnia Ondansetron HCl (Ondansetron Hcl 4 Mg/2 Ml Vial) 4 mg IVPUSH Q8H PRN PRN Reason: Nausea and Vomiting Last Admin: 01/05/24 16:53 Dose: 4 mg Sodium Chloride (0.9 % Sodium Chloride Flush 3 Ml Syringe) 3 ml IVFLUSH QSHIFT CHRIS Last Admin: 01/07/24 08:21 Dose: 3 ml Home Medications ?Medication ?Instructions ?Recorded ?Confirmed ?Last Taken ?Type aspirin 325 mg tablet 650 mg PO DAILY PRN Pain 01/03/24 01/03/24 Unknown History Physical Exam 2 Vital Signs: Vital Signs: Last Vital Signs Temp 97.2 F 01/07/24 07:13 Pulse 95 01/07/24 07:13 Resp 18 01/07/24 07:13 BP 137/77 01/07/24 07:13 Pulse Ox 95 01/07/24 07:13 O2 Del Method Room Air 01/07/24 07:13 O2 Flow Rate 1 01/06/24 15:44 BMI result Body Mass Index 33.1 GENERAL APPEARANCE: in no acute distress, pleasant. NECK: no carotid bruit, no jugular venous distention. SKIN: no suspicious lesions, warm and dry. HEART: no murmurs, regular rate and rhythm. LUNGS: Few crackles at bases. ABDOMEN: soft, nontender. EXTREMITIES: no edema. PERIPHERAL PULSES: equal. NEUROLOGIC: No gross deficits, AAO X 3 Objective Labs and Meds 01/07/24 05:36 01/07/24 05:36 Lab results: Laboratory Results - last 24 hr 01/06/24 01/06/24 01/06/24 10:38 11:06 15:43 WBC RBC Hgb Hct MCV MCH MCHC RDW Plt Count MPV Immature Gran % (Auto) Neut % (Auto) Lymph % (Auto) [place] % (Auto) Eos % (Auto) Baso % (Auto) Lymph # (Auto) [place] # (Auto) Eos # (Auto) Baso # (Auto) Abs Immat Gran (auto) Absolute Neuts (auto) Absolute Nucleated RBC Nucleated RBC % (auto) Hold Purple Top Sodium Potassium Chloride Carbon Dioxide Anion Gap BUN Creatinine Estim Creat Clear Calc Estimated GFR POC Glucose 164 H 161 H Random Glucose Calcium B-Natriuretic Peptide 882 H C. difficile Tox B Gene 01/06/24 01/06/24 01/07/24 17:50 20:41 05:36 WBC 10.0 RBC 4.35 D Hgb 12.3 D Hct 37.5 D MCV 86.2 MCH 28.3 MCHC 32.8 RDW 16.4 H Plt Count 286 D MPV 10.3 Immature Gran % (Auto) 3.4 H Neut % (Auto) 70.6 Lymph % (Auto) 15.7 L [place] % (Auto) 8.4 Eos % (Auto) 1.2 Baso % (Auto) 0.7 Lymph # (Auto) 1.6 [place] # (Auto) 0.8 Eos # (Auto) 0.1 Baso # (Auto) 0.1 Abs Immat Gran (auto) 0.34 H Absolute Neuts (auto) 7.1 Absolute Nucleated RBC 0.000 Nucleated RBC % (auto) 0.0 Hold Purple Top SEE NOTE Sodium 135 Potassium 3.4 D Chloride 102 Carbon Dioxide 22 Anion Gap 14 BUN 58 H Creatinine 3.68 H Estim Creat Clear Calc 17.2 Estimated GFR 13 POC Glucose 125 H Random Glucose 129 H Calcium 7.8 L B-Natriuretic Peptide C. difficile Tox B Gene NEGATIVE 01/07/24 06:52 WBC RBC Hgb Hct MCV MCH MCHC RDW Plt Count MPV Immature Gran % (Auto) Neut % (Auto) Lymph % (Auto) [place] % (Auto) Eos % (Auto) Baso % (Auto) Lymph # (Auto) [place] # (Auto) Eos # (Auto) Baso # (Auto) Abs Immat Gran (auto) Absolute Neuts (auto) Absolute Nucleated RBC Nucleated RBC % (auto) Hold Purple Top Sodium Potassium Chloride Carbon Dioxide Anion Gap BUN Creatinine Estim Creat Clear Calc Estimated GFR POC Glucose 122 H Random Glucose Calcium B-Natriuretic Peptide C. difficile Tox B Gene Assessment and Plan (1) Cardiomyopathy: Status: Acute Plan Pleasant 63 year female with dilated cardiomyopathy. LV is moderately dilated with EF 25-30%. Clinically does not look significantly volume overloaded. Change to oral Lasix 20 mg daily. Add hydralazine 25 mg t.i.d.. If she tolerates this then we will add Isordil or isosorbide. Avoid beta-pedro for now. If creatinine improves and stabilizes then can discuss with renal about adding ARB or Entresto. Currently creatinine worsening so ARB/PERI is not a possibility. Thank you for allowing me to participate in the care of your patient. Please feel free to contact me if you have any questions. Procedures Date of Service Date of Service: 01/07/24
--- NOTE | 2024-01-07 10:28 | MHC.CM.PN ---
Per ROUNDS discussion, Patient may leave AMA; CM will follow.
[2024-01-07 10:56] LABS: Glucose, Whole Blood 158 mg/dL (60-115)
[2024-01-07 11:18] VITALS: BP 119/71; PULSE 95; RESP 18; TEMP 36.7; O2SAT 95
[2024-01-07 11:48] LABS: Complement C3 111 mg/dL (83-193)
--- NOTE | 2024-01-07 12:53 | PM.PNNEP ---
Subjective Subjective Date of Service: 01/07/24 Interval history: Events noted ; all recent data reviewed. Wants to go home. Serum creatinine not plateaued Physical Exam Vital Signs: Vital Signs: Last Vital Signs Temp 98.0 F 01/07/24 11:18 Pulse 95 01/07/24 11:18 Resp 18 01/07/24 11:18 BP 119/71 01/07/24 11:18 Pulse Ox 95 01/07/24 11:18 O2 Del Method Room Air 01/07/24 11:18 O2 Flow Rate 1 01/06/24 15:44 BMI result Body Mass Index 33.1 Const: General: comfortable and no acute distress Orientation/consciousness: patient oriented x3 HEENT: Head: Yes normocephalic Mouth: Normal oral and palatal mucosa present Eyes: EOM: EOMs intact bilaterally Neck: Neck: Yes supple Resp: Auscultation: diminished lung sounds Cardio: Jugular venous distension: no JVD Rate: regular rate GI: Palpation (GI): Soft to palpation Auscultation: normal bowel sounds : General: Yes no CVA tenderness Back/Spine/Pelvis: Back: no CVA tenderness Skin: General skin exam: no rashes or lesions noted Neuro: General: patient oriented x3 and moves all extremities Extrem: General: Yes edema Objective Data Labs 01/07/24 05:36 01/07/24 05:36 Labs: Laboratory Results - last 24 hr 01/06/24 01/06/24 01/06/24 06:16 15:43 17:50 WBC RBC Hgb Hct MCV MCH MCHC RDW Plt Count MPV Immature Gran % (Auto) Neut % (Auto) Lymph % (Auto) [place] % (Auto) Eos % (Auto) Baso % (Auto) Lymph # (Auto) [place] # (Auto) Eos # (Auto) Baso # (Auto) Abs Immat Gran (auto) Absolute Neuts (auto) Absolute Nucleated RBC Nucleated RBC % (auto) Hold Purple Top Sodium Potassium Chloride Carbon Dioxide Anion Gap BUN Creatinine Estim Creat Clear Calc Estimated GFR POC Glucose 161 H Random Glucose Calcium Complement C3 111 Complement C4 17 C. difficile Tox B Gene NEGATIVE 01/06/24 01/07/24 01/07/24 20:41 05:36 06:52 WBC 10.0 RBC 4.35 D Hgb 12.3 D Hct 37.5 D MCV 86.2 MCH 28.3 MCHC 32.8 RDW 16.4 H Plt Count 286 D MPV 10.3 Immature Gran % (Auto) 3.4 H Neut % (Auto) 70.6 Lymph % (Auto) 15.7 L [place] % (Auto) 8.4 Eos % (Auto) 1.2 Baso % (Auto) 0.7 Lymph # (Auto) 1.6 [place] # (Auto) 0.8 Eos # (Auto) 0.1 Baso # (Auto) 0.1 Abs Immat Gran (auto) 0.34 H Absolute Neuts (auto) 7.1 Absolute Nucleated RBC 0.000 Nucleated RBC % (auto) 0.0 Hold Purple Top SEE NOTE Sodium 135 Potassium 3.4 D Chloride 102 Carbon Dioxide 22 Anion Gap 14 BUN 58 H Creatinine 3.68 H Estim Creat Clear Calc 17.2 Estimated GFR 13 POC Glucose 125 H 122 H Random Glucose 129 H Calcium 7.8 L Complement C3 Complement C4 C. difficile Tox B Gene 01/07/24 10:50 WBC RBC Hgb Hct MCV MCH MCHC RDW Plt Count MPV Immature Gran % (Auto) Neut % (Auto) Lymph % (Auto) [place] % (Auto) Eos % (Auto) Baso % (Auto) Lymph # (Auto) [place] # (Auto) Eos # (Auto) Baso # (Auto) Abs Immat Gran (auto) Absolute Neuts (auto) Absolute Nucleated RBC Nucleated RBC % (auto) Hold Purple Top Sodium Potassium Chloride Carbon Dioxide Anion Gap BUN Creatinine Estim Creat Clear Calc Estimated GFR POC Glucose 158 H Random Glucose Calcium Complement C3 Complement C4 C. difficile Tox B Gene Microbiology Microbiology Results: Microbiology 01/03/24 12:31 Blood - Venous Blood Culture - Preliminary No growth after 48 hours. 01/03/24 12:31 Blood - Venous Blood Culture - Preliminary No growth after 48 hours. 01/03/24 02:09 Blood - Venous Blood Culture - Final Escherichia coli 01/03/24 02:08 Blood - Venous Blood Culture - Final Escherichia coli 01/03/24 Unknown Urine clean catch - Clean Catch Midstream Urine Culture - Final Procedures Date of Service Date of Service: 01/07/24 Assessment & Plan Assessment and plan (1) Acute kidney injury: Status: Acute Plan PHUONG likely due to tubular injury Imaging studies showed enlarged right kidney; Seen urology Differential diagnosis includes coy infectious GN; AIN unlikely Also received Toradol in the ER when blood pressure was on the low side Serum creatinine not plateaued; Hypervolemic; Needs diuretics Complement levels normal; No indication for renal replacement Hopefully with continued supportive care, her renal functions will settle to baseline Further management is pending evolving data Progress Note: Quality Stroke Does the patient have a stroke diagnosis?: No
[2024-01-07] MEDS: Furosemide 40 MG/4 ML VIAL IVPUSH (13:12)
[2024-01-07] MEDS: cefTRIAXone sodium 2 GM in 0.9 % Sodium Chloride 50 ML IV (13:22)
--- NOTE | 2024-01-07 13:53 | P.PNIM_ITS ---
Subjective Subjective Date of Service: 01/07/24 Interval History: F/u sepsis d/t acute pyeloneophritis, gram negative kiko (GNR) bacteremia, PHUONG Renal function worse, has been having diarrhea, Physical Exam 2 Vital Signs: Vital Signs: Last Vital Signs Temp 98.0 F 01/07/24 11:18 Pulse 95 01/07/24 11:18 Resp 18 01/07/24 11:18 BP 119/71 01/07/24 11:18 Pulse Ox 95 01/07/24 11:18 O2 Del Method Room Air 01/07/24 11:18 O2 Flow Rate 1 01/06/24 15:44 BMI result Body Mass Index 33.1 General: AO X 3, no acute distress Resp: CTA bilateral CVS: S1,S2,RRR, 2+ leg edema GI: +BS, NT, no distention Skin: No rash Neuro: motor grossly intact Psych: appropriate affect Objective Data Active Medications Acetaminophen (Acetaminophen 325 Mg Tablet) 975 mg PO Q6H PRN PRN Reason: Pain, Mild (Pain Scale 1-3), fever or headache Last Admin: 01/05/24 23:15 Dose: 975 mg Documented By: MARBIN Calcium Carbonate (Calcium Carbonate 750 Mg Tab.Chew) 750 mg PO Q4H PRN PRN Reason: Heartburn Last Admin: 01/06/24 20:43 Dose: 750 mg Documented By: MARBIN Diphenhydramine HCl (Diphenhydramine Hcl 50 Mg/Ml Vial) 12.5 mg IVPUSH Q6H PRN PRN Reason: Nausea and Vomiting Last Admin: 01/06/24 20:47 Dose: 12.5 mg Documented By: MARBIN Enoxaparin Sodium (Enoxaparin Sodium 30 Mg/0.3 Ml Syringe) 30 mg SUBCUT Q24H [facility] Last Admin: 01/07/24 11:58 Dose: Not Given Documented By: ELOISA Non-Admin Reason: Patient Refused Furosemide (Furosemide 20 Mg Tablet) 20 mg PO DAILY [facility]; Protocol Glucose (Glucose Gel 15 Gm Gel..Gram.) 15 gm PO Q15M PRN; Protocol PRN Reason: per Hypoglycemia Standing Ord. Hydralazine HCl (Hydralazine Hcl 25 Mg Tablet) 25 mg PO TID [facility]IS; Protocol Dextrose (D10) 250 mls @ 750 mls/hr IV Q15M PRN; Protocol PRN Reason: per Hypoglycemia Standing Ord. Ceftriaxone Sodium 2 gm/ (Sodium Chloride) 50 mls @ 100 mls/hr IV Q24H [facility] Last Admin: 01/07/24 13:22 Dose: 100 mls/hr Documented By: ELOISA Insulin Glargine (Insulin Glargine,Hum.Rec.Anlog 100 Unit/Ml 10 Ml Vial) 20 unit SUBCUT DAILY [facility] Last Admin: 01/07/24 08:16 Dose: 20 unit Documented By: ELOISA Insulin Human Lispro (Insulin Lispro 100 Unit/Ml 3 Ml Vial) 0 unit SUBCUT QIDACHS [facility]; Protocol Last Admin: 01/07/24 13:12 Dose: 4 unit Documented By: ELOISA Magnesium Hydroxide (Milk Of Magnesia 30 Ml Oral.Susp) 30 ml PO DAILY PRN PRN Reason: Constipation Last Admin: 01/06/24 09:48 Dose: 30 ml Documented By: ELOISA Melatonin (Melatonin 3 Mg Tablet) 6 mg PO BEDTIME PRN PRN Reason: Insomnia Ondansetron HCl (Ondansetron Hcl 4 Mg/2 Ml Vial) 4 mg IVPUSH Q8H PRN PRN Reason: Nausea and Vomiting Last Admin: 01/05/24 16:53 Dose: 4 mg Documented By: ZAK Sodium Chloride (0.9 % Sodium Chloride Flush 3 Ml Syringe) 3 ml IVFLUSH QSHIFT [facility] Last Admin: 01/07/24 08:21 Dose: 3 ml Documented By: ELOISA Labs 01/07/24 05:36 01/07/24 05:36 Labs: Laboratory Results - last 24 hr 01/06/24 01/06/24 01/06/24 06:16 15:43 17:50 MCV MCH MCHC RDW Plt Count MPV Immature Gran % (Auto) Neut % (Auto) Lymph % (Auto) [place] % (Auto) Eos % (Auto) Baso % (Auto) Lymph # (Auto) [place] # (Auto) Eos # (Auto) Baso # (Auto) Abs Immat Gran (auto) Absolute Neuts (auto) Absolute Nucleated RBC Nucleated RBC % (auto) Hold Purple Top Anion Gap Estim Creat Clear Calc Estimated GFR POC Glucose 161 H Random Glucose Calcium Complement C3 111 Complement C4 17 C. difficile Tox B Gene NEGATIVE 01/06/24 01/07/24 01/07/24 20:41 05:36 06:52 MCV 86.2 MCH 28.3 MCHC 32.8 RDW 16.4 H Plt Count 286 D MPV 10.3 Immature Gran % (Auto) 3.4 H Neut % (Auto) 70.6 Lymph % (Auto) 15.7 L [place] % (Auto) 8.4 Eos % (Auto) 1.2 Baso % (Auto) 0.7 Lymph # (Auto) 1.6 [place] # (Auto) 0.8 Eos # (Auto) 0.1 Baso # (Auto) 0.1 Abs Immat Gran (auto) 0.34 H Absolute Neuts (auto) 7.1 Absolute Nucleated RBC 0.000 Nucleated RBC % (auto) 0.0 Hold Purple Top SEE NOTE Anion Gap 14 Estim Creat Clear Calc 17.2 Estimated GFR 13 POC Glucose 125 H 122 H Random Glucose 129 H Calcium 7.8 L Complement C3 Complement C4 C. difficile Tox B Gene 01/07/24 10:50 MCV MCH MCHC RDW Plt Count MPV Immature Gran % (Auto) Neut % (Auto) Lymph % (Auto) [place] % (Auto) Eos % (Auto) Baso % (Auto) Lymph # (Auto) [place] # (Auto) Eos # (Auto) Baso # (Auto) Abs Immat Gran (auto) Absolute Neuts (auto) Absolute Nucleated RBC Nucleated RBC % (auto) Hold Purple Top Anion Gap Estim Creat Clear Calc Estimated GFR POC Glucose 158 H Random Glucose Calcium Complement C3 Complement C4 C. difficile Tox B Gene Assessment and Plan (1) Severe sepsis: Status: Acute (2) Acute kidney injury: Status: Acute Plan 63/F admitted for Severe sepsis secondary to acute pyelonephritis, UTI and E.coli bacteremia complicated transient hypotension, Sepsis resolved. -Zosyn since admission, replaced with Ceftriaxone 2 gram daily starting 01/04 to cover E.coli PHUONG--likly multifactorial including--including ATN from hypotension, sepsis and possible cardiorenal syndrome. Initially was on IVF for hypotension and this has led to volume retention in setting of cardiomyopathy and low EF.. and agravated by diarrhea. Patient is now 18L positive -IVF stopped -Trial of diuretics -IV Lasix, -closely monitor renal function. Mild metabolic acidois d/t PHUONG--resolved. Assymptomatic hypoxia--O2 sat droping into Low 80s, ? atelactasis vs ANA LAURA. CXR no acute finding, in retrospect likely from heart failure, possibly ANA LAURA, - address underlying issues Cardiomyopathy with acute on chronic systolic heart failure with EF 25 to 30%, She's 18 L posiive. -IV diuretic today hypOtesion episode -multifactorial-dehydration, hypo albuminemia. Nausea and vomiting, likely secondary to acute pyelonephritis. Resolved. Uncontrolled type 2 diabetes mellitus with hyperglycemia. Hgb A1C is greater than 14. Not on meds at home. No acidosis, she will likley need insulin at dc,overall better History of essential hypertension, not taking anti-HTN meds at the moment. BP stable. Continue to monitor for now. Obesity, class 1. BMI 37.7 kg/m2. Encourage weight loss, cutdown calories. Diarrhea, negative cdid, imodium PRN DVT prophylaxis: Lovenox need for inpatient: Sepsis, bacteremia, PHUONG needs IV Abx, IVF Quality Stroke Does the patient have a stroke diagnosis?: No VTE Prior VTE?: No VTE Risk Level:: Medical - moderate - high VTE Device Contraindication: Treatment Not Indicated VTE Drug Contraindication: N/A - Med Ordered
[2024-01-07 15:50] VITALS: BP 117/60; PULSE 96; RESP 14; TEMP 36.4; O2SAT 92
[2024-01-07 16:25] LABS: Glucose, Whole Blood 138 mg/dL (60-115)
[2024-01-07 19:34] VITALS: BP 137/75; PULSE 95; RESP 16; TEMP 36.2; O2SAT 96
[2024-01-07 20:03] LABS: Glucose, Whole Blood 199 mg/dL (60-115)
[2024-01-07] MEDS: diphenhydrAMINE HCL 50 MG/ML VIAL 12.5 MG IVPUSH (20:46)
[2024-01-07 23:26] VITALS: BP 142/75; PULSE 91; RESP 20; TEMP 36.2; O2SAT 94
[2024-01-08 03:22] VITALS: BP 152/77; PULSE 92; RESP 20; TEMP 36.4; O2SAT 93
[2024-01-08 06:56] LABS: Anion Gap 15 (12-20); Blood Urea Nitrogen 59 mg/dL (9-16); Calcium 8.4 mg/dL (8.4-10.2); Carbon Dioxide 24 mmol/L (22-29); Chloride 100 mmol/L (96-108); Creatinine Clr Calc Pharmacy 16.3; Estimated Glomerular Filt Rate 12; Glucose Random 157 mg/dL (60-115); Magnesium 1.8 mg/dL (1.6-2.6); Potassium 3.2 mmol/L (3.3-5.1); Sodium 136 mmol/L (135-145)
[2024-01-08 07:23] VITALS: BP 138/80; PULSE 93; RESP 18; TEMP 36.5; O2SAT 97
[2024-01-08 07:29] LABS: Glucose, Whole Blood 159 mg/dL (60-115)
[2024-01-08] MEDS: Insulin Glargine,Hum.rec.anlog 100 UNIT/ML 10 ML VIAL 20 UNIT SUBCUT (08:04)
[2024-01-08] MEDS: Insulin Lispro 100 UNIT/ML 3 ML VIAL SUBCUT ×2 (08:04→12:41)
[2024-01-08] MEDS: 0.9 % Sodium Chloride Flush 3 ML SYRINGE IVFLUSH (08:05)
--- NOTE | 2024-01-08 08:16 | PC.NURSE ---
patient refusing bed and chair alarms. Patient instructed to use call burleson before attempting to ambulate. Patient also refused hydralazine and lovenox.
--- NOTE | 2024-01-08 11:02 | HO.PM.IMPN ---
Subjective Subjective Date of Service: 01/08/24 Interval History: F/u sepsis d/t acute pyeloneophritis, gram negative kiko (GNR) bacteremia, PHUONG Renal function has trended up slightly Physical Exam Vital Signs: Vital Signs: Last Vital Signs Temp 97.7 F 01/08/24 07:23 Pulse 93 01/08/24 07:23 Resp 18 01/08/24 07:23 BP 138/80 01/08/24 07:23 Pulse Ox 97 01/08/24 07:23 O2 Del Method Room Air 01/08/24 03:22 O2 Flow Rate 1 01/06/24 15:44 BMI result Body Mass Index 33.1 Objective Data Active Medications Acetaminophen (Acetaminophen 325 Mg Tablet) 975 mg PO Q6H PRN PRN Reason: Pain, Mild (Pain Scale 1-3), fever or headache Last Admin: 01/05/24 23:15 Dose: 975 mg Documented By: MARBIN Calcium Carbonate (Calcium Carbonate 750 Mg Tab.Chew) 750 mg PO Q4H PRN PRN Reason: Heartburn Last Admin: 01/06/24 20:43 Dose: 750 mg Documented By: MARBIN Diphenhydramine HCl (Diphenhydramine Hcl 50 Mg/Ml Vial) 12.5 mg IVPUSH Q6H PRN PRN Reason: Nausea and Vomiting Last Admin: 01/07/24 20:46 Dose: 12.5 mg Documented By: LATRICE Enoxaparin Sodium (Enoxaparin Sodium 30 Mg/0.3 Ml Syringe) 30 mg SUBCUT Q24H [facility] Last Admin: 01/08/24 08:15 Dose: Not Given Documented By: JOSIAH Non-Admin Reason: Patient Refused Glucose (Glucose Gel 15 Gm Gel..Gram.) 15 gm PO Q15M PRN; Protocol PRN Reason: per Hypoglycemia Standing Ord. Hydralazine HCl (Hydralazine Hcl 25 Mg Tablet) 25 mg PO TID [facility]; Protocol Last Admin: 01/08/24 08:16 Dose: Not Given Documented By: JOSIAH Non-Admin Reason: Patient Refused Dextrose (D10) 250 mls @ 750 mls/hr IV Q15M PRN; Protocol PRN Reason: per Hypoglycemia Standing Ord. Ceftriaxone Sodium 2 gm/ (Sodium Chloride) 50 mls @ 100 mls/hr IV Q24H [facility] Last Infusion: 01/07/24 14:19 Dose: Infused Documented By: ELOISA Insulin Glargine (Insulin Glargine,Hum.Rec.Anlog 100 Unit/Ml 10 Ml Vial) 20 unit SUBCUT DAILY [facility] Last Admin: 01/08/24 08:04 Dose: 20 unit Documented By: JOSIAH Insulin Human Lispro (Insulin Lispro 100 Unit/Ml 3 Ml Vial) 0 unit SUBCUT QIDACHS [facility]; Protocol Last Admin: 01/08/24 08:04 Dose: 4 unit Documented By: JOSIAH Isosorbide Mononitrate (Isosorbide Mononitrate 30 Mg Tab.Er.24h) 30 mg PO DAILY [facility]; Protocol Loperamide HCl (Loperamide Hcl 2 Mg Capsule) 2 mg PO Q6H PRN PRN Reason: Diarrhea Magnesium Hydroxide (Milk Of Magnesia 30 Ml Oral.Susp) 30 ml PO DAILY PRN PRN Reason: Constipation Last Admin: 01/06/24 09:48 Dose: 30 ml Documented By: ELOISA Melatonin (Melatonin 3 Mg Tablet) 6 mg PO BEDTIME PRN PRN Reason: Insomnia Ondansetron HCl (Ondansetron Hcl 4 Mg/2 Ml Vial) 4 mg IVPUSH Q8H PRN PRN Reason: Nausea and Vomiting Last Admin: 01/05/24 16:53 Dose: 4 mg Documented By: ZAK Sodium Chloride (0.9 % Sodium Chloride Flush 3 Ml Syringe) 3 ml IVFLUSH QSHIFT [facility] Last Admin: 01/08/24 08:05 Dose: 3 ml Documented By: JOSIAH Labs 01/07/24 05:36 01/08/24 06:11 Labs: Laboratory Results - last 24 hr 01/06/24 01/07/24 01/07/24 06:16 16:18 19:57 Hold Purple Top Anion Gap Estim Creat Clear Calc Estimated GFR POC Glucose 138 H 199 H Random Glucose Calcium Magnesium Complement C3 111 Complement C4 17 01/08/24 01/08/24 06:11 07:22 Hold Purple Top SEE NOTE Anion Gap 15 Estim Creat Clear Calc 16.3 Estimated GFR 12 POC Glucose 159 H Random Glucose 157 H Calcium 8.4 D Magnesium 1.8 Complement C3 Complement C4 Assessment and Plan (1) Severe sepsis: Status: Acute (2) Acute kidney injury: Status: Acute Plan 63/F admitted for Severe sepsis secondary to acute pyelonephritis, UTI and E.coli bacteremia complicated transient hypotension, Sepsis resolved. -Zosyn since admission, replaced with Ceftriaxone 2 gram daily starting 01/04 to cover E.coli PHUONG--likly multifactorial including--including ATN from hypotension, sepsis and possible cardiorenal syndrome. Initially was on IVF for hypotension and this has led to volume retention in setting of cardiomyopathy and low EF.. and agravated by diarrhea. Patient is now 18L positive, however I/O were not reliably tracked -IVF stopped -Stop diuretics and monitor renal function Mild metabolic acidois d/t PHUONG--resolved. Assymptomatic hypoxia--possibly related to heart failure and sepsis, this has resolved. Cardiomyopathy with acute on chronic systolic heart failure with EF 25 to 30%, She's 18 L posiive but I/O don't appear to accurate, clinically doesn't appear to be volume overloaded. Hold diuretics hypOtesion episode -multifactorial-dehydration, hypo albuminemia--resolved and Bp has trended up Nausea and vomiting, likely secondary to acute pyelonephritis. Resolved. Uncontrolled type 2 diabetes mellitus with hyperglycemia. Hgb A1C is greater than 14. Not on meds at home. No acidosis, she will likley need insulin at dc,overall better History of essential hypertension, not taking anti-HTN meds at the moment. BP stable. Continue to monitor for now. Obesity, class 1. BMI 37.7 kg/m2. Encourage weight loss, cutdown calories. Diarrhea, negative cdid, imodium PRN DVT prophylaxis: Lovenox need for inpatient: Sepsis, bacteremia, PHUONG needs IV Abx, IVF Patient wants to go home, advised that she's not ready and if she insists will have to go AMA Quality Stroke Does the patient have a stroke diagnosis?: No VTE Prior VTE?: No VTE Risk Level:: Medical - moderate - high VTE Device Contraindication: Treatment Not Indicated VTE Drug Contraindication: N/A - Med Ordered
--- NOTE | 2024-01-08 11:07 | PM.PNCARD ---
Subjective Subjective Date of Service: 01/08/24 Interval history: Seen examined at bedside. Adamant that she is going to leave today. Creatinine getting worse. Physical Exam Vital Signs: Last Vital Signs Temp 97.7 F 01/08/24 07:23 Pulse 93 01/08/24 07:23 Resp 18 01/08/24 07:23 BP 138/80 01/08/24 07:23 Pulse Ox 97 01/08/24 07:23 O2 Del Method Room Air 01/08/24 03:22 O2 Flow Rate 1 01/06/24 15:44 BMI result Body Mass Index 33.1 GENERAL APPEARANCE: in no acute distress, pleasant. NECK: no carotid bruit, mild jugular venous distention. SKIN: no suspicious lesions, warm and dry. HEART: no murmurs, regular rate and rhythm. LUNGS: Few crackles at bases. ABDOMEN: soft, nontender. EXTREMITIES: mild edema. PERIPHERAL PULSES: equal. NEUROLOGIC: No gross deficits, AAO X 3 Objective Labs and Meds 01/07/24 05:36 01/08/24 06:11 Lab results: Laboratory Results - last 24 hr 01/06/24 01/07/24 01/07/24 06:16 16:18 19:57 Hold Purple Top Sodium Potassium Chloride Carbon Dioxide Anion Gap BUN Creatinine Estim Creat Clear Calc Estimated GFR POC Glucose 138 H 199 H Random Glucose Calcium Magnesium Complement C3 111 Complement C4 17 01/08/24 01/08/24 06:11 07:22 Hold Purple Top SEE NOTE Sodium 136 Potassium 3.2 L Chloride 100 Carbon Dioxide 24 Anion Gap 15 BUN 59 H Creatinine 3.86 H Estim Creat Clear Calc 16.3 Estimated GFR 12 POC Glucose 159 H Random Glucose 157 H Calcium 8.4 D Magnesium 1.8 Complement C3 Complement C4 Progress Note: A&P Assessment and plan (1) Uncontrolled type 2 diabetes mellitus with hyperglycemia: Status: Acute (2) Cardiomyopathy: Status: Acute Plan Pleasant 63-year-old lady with uncontrolled diabetes who is diagnosed with cardiomyopathy with EF 25 30% with moderate LV dilatation. Etiology can be uncontrolled diabetes in her case. Obviously underlying coronary disease possibility. She has significant kidney issues and acute kidney injury with rising creatinine levels. She does not look that overloaded. Can stay on oral diuretics. Titrating hydralazine nitrate. If she decides to stay then hydralazine can be titrated to 50 t.i.d. otherwise if she plans to leave today then 25 t.i.d. hydralazine isosorbide 30 mg daily should be added. We will arrange follow-up for her. Time Spent With Patient Time: Total time managing care of this patient today ____ minutes. Progress Note: Quality Stroke Does the patient have a stroke diagnosis?: No Procedures Date of Service Date of Service: 01/08/24
[2024-01-08 11:26] VITALS: BP 118/74; PULSE 95; RESP 20; TEMP 36.7; O2SAT 95
[2024-01-08 12:20] LABS: Glucose, Whole Blood 141 mg/dL (60-115)
[2024-01-08] MEDS: Isosorbide Mononitrate 30 MG TAB.ER.24H PO (12:38)
--- NOTE | 2024-01-08 14:23 | PM.DS ---
DS: Providers Provider Date of Service: 01/08/24 Date of admission: 01/03/24 04:48 Primary care physician: Unknown Physician Consults: 01/03/24 11:41 Consult to Critical Care Routine Consulting Provider: Lester Carballo Reason for consultation: Level of care Has provider been notified: No 01/03/24 12:31 Consult to Infectious Diseases Routine Consulting Provider: [facility] [place] [facility] Reason for consultation: bacteremia Has provider been notified: No 01/04/24 12:58 Consult to Nephrology Stat Consulting Provider: [facility] [place] [facility] Reason for consultation: Phuong Has provider been notified: Yes 01/05/24 13:29 Consult to Urology Routine Consulting Provider: [facility] [place] [facility] Reason for consultation: 1. Right asymmetric hydroureter with periureteral stranding. PHUONG 01/06/24 16:34 Consult to Cardiology Routine Consulting Provider: [facility] [place] [facility] Reason for consultation: Cardiomyopathy, CHF Has provider been notified: Yes DS: Diagnosis Discharge Diagnosis (1) Severe sepsis: Status: Acute (2) Acute kidney injury: Status: Acute DS: Summary Hospital Course Hospital Course: admission Chief Complaint: Right flank pain Maria L Guy is a 63 years old woman with past medical history significant for type 2 diabetes mellitus and hypertension -not currently taking/using medication for this presents to the emergency department complaining of posterior round pain that started 2 days ago. She said that the pain has been on and off but tonight was very intense, 10/10. The pain does not radiate and is associated with multiple events of nonbloody vomiting and dizziness. She denied associated pain with urination, urinary frequency or bloody urine. She denies fever or chills. She has been taking aspirin at home without significant improvement of the pain. Denied being taking Tylenol or any other NSAIDs. Cardiopulmonary symptoms were denied. She denied tobacco smoking, alcohol abuse or illicit drug use. Abdominal surgery history is remarkable for appendectomy and hernia surgery. In the ED, she was found to have tachycardia. There is low-grade fever, 100.1. Systolic blood pressure has been over 90. Blood workup is remarkable for leukocytosis of 18.7. Hemoglobin and platelets are normal. PTT is 26.3. Blood glucose was initially 637. Initial bicarb was 19, most recent is 23. Anion gap was 27 initially, most recent one is 21. There are no other electrolyte imbalances. Lipase is normal. Creatinine is also improving from 1.43 to 1.19. Lactic acid is increasing 2.3 --> 3.5. Venous pH is 7.40. Troponin is negative x2. Beta hydroxybutyric is elevated, 5.2. Urinalysis consistent with urinary tract infection. Viral testing for COVID-19, influenza RSV is negative. CXR is negative. Abdominal pelvis CT scan with IV contrast showed right asymmetric treated with periureteral stranding (no obstructing renal calculi) and hepatomegaly. ED tx: LR 3 L bolus, ceftriaxone 1 g IV, ketorolac 15 mg IV, Zofran 4 mg IV, insulin R 30 units IV (total) hospital course: Patient presented with right flank pain, fever, hypotension, elevated WBC, and UA consitent with UTI, a CT showed peruretral stranding and her blood was low. Her clinical presentation was consistent with Sepsis d/t acute pyelonephritis and UTI. She was initiated on IVF and IV Zosyn. She was also noted to have hyperglycemia with sugar of 588, her hemoglobin A1C was later determined to be greater than 14. She says was previously diabetic but it went away and therefore has not been on medication for years. She had mild acidosis with bicab of 19. Her hospital course was further complicated by Acute renal insuficiency, electrolytes distrurbances and fluid overload. Hospital as follow by problems Severe sepsis secondary to acute pyelonephritis, UTI and E.coli bacteremia. She was initially treated with IV Zosy and once her cultures showed E.coli sensitive to Ceftriaxone, she was switched to Ceftriaxone.. She was seen by infectious disease with recommendation for a total of 10 to 14 days of treatment, she will be transitioned to oral Cefuroxime for 10 more days. PHUONG--likly multifactorial including--including ATN from hypotension, sepsis and possible cardiorenal syndrome. Initially was on IVF for hypotension and this has led to volume retention in setting of cardiomyopathy and low EF.. and agravated by diarrhea. Her Creatine on admission was 1.43 and steadily has increased to now 3.86 highest. At this point it has been advised to stop diuretics and keep a close eye on it. Unfortuantely she has elected to leave against medical advised and therefore will have outpatient follow up with the nephrology team Mild metabolic acidois d/t PHUONG--resolved. HypOxia--likely was related to sepsis, and possible CHF--she required oxygen but this has resolved. Cardiomyopathy with acute on chronic systolic heart failure with EF 25 to 30%, She's 18 L positve but I/O don't appear to accurate, clinically doesn't appear to be volume overloaded. She has been diuressed with IV Lasix which is now on hold. Cardiology has been following her and recommends hydralazine and Imdure and also advised continuing monitoring in the hosptial but again she refused and signed AMA hypOtesion episode -multifactorial-dehydration, Sepsi--resolved with IVF Nausea and vomiting, likely secondary to acute pyelonephritis. Resolved. Uncontrolled type 2 diabetes mellitus with hyperglycemia. Hgb A1C is greater than 14. Not on meds at home. She is prescribed Lantus 20 units via pain, and sliding scale insulin via pen and given diabetics supplies, except a meter which insurance will not cover and she will get one OTC History of essential hypertension, not taking anti-HTN meds, started on Hydralazine and Imdur. Obesity, class 1. BMI 37.7 kg/m2. Encourage weight loss, cutdown calories. Diarrhea, negative cdif, imodium PRN While we believe the patient's condition has not improved enough to be discharged, she has been adamant she does not want to stay another night and is leaving at all cost. Her discussed specifically that the fact that her creatinine is still trending up and further medication modification is made including cutting back on Lasix and see the effect, monitoring her potassium and other electrolytes, she insisted on leaving, call her daughter who came to pick her up. She was awake, alert, sound and was able to repeat back in her own words, the food services coordinator also spoke to her and advised her not to leave. She understand that her condition could worsen and possibly lead to serious health condition and even . She proceeded to sign the AMA form. She was encouraged to return to the ED at anytime, particulary if her condition gets worse. She was also asked to go see her PCP, the food services coordinator and kidney doctor within the coming week. Time Attestation Discharge Coordination Time (in mins): 55 Quality: Safe Use of Opioids Does Pt have an Active Cancer Diagnosis on the Problem List?: No Quality: Stroke Does the patient have a stroke diagnosis?: No Physical Exam Vital Signs: Vital Signs: Last Vital Signs Temp 98.0 F 01/08/24 11:26 Pulse 95 01/08/24 11:26 Resp 20 01/08/24 11:26 BP 118/74 01/08/24 11:26 Pulse Ox 95 01/08/24 11:26 O2 Del Method Room Air 01/08/24 11:26 O2 Flow Rate 1 01/06/24 15:44 BMI result Body Mass Index 33.1 DS: Data Data Completed and Pending Labs on day of discharge: Laboratory Results - last 24 hr 01/07/24 01/07/24 01/08/24 16:18 19:57 06:11 Hold Purple Top SEE NOTE Sodium 136 Potassium 3.2 L Chloride 100 Carbon Dioxide 24 Anion Gap 15 BUN 59 H Creatinine 3.86 H Estim Creat Clear Calc 16.3 Estimated GFR 12 POC Glucose 138 H 199 H Random Glucose 157 H Calcium 8.4 D Magnesium 1.8 01/08/24 01/08/24 07:22 12:15 Hold Purple Top Sodium Potassium Chloride Carbon Dioxide Anion Gap BUN Creatinine Estim Creat Clear Calc Estimated GFR POC Glucose 159 H 141 H Random Glucose Calcium Magnesium Preliminary micro results at discharge 01/03/24 12:31 Blood Culture - Preliminary Blood - Venous No growth after 48 hours. 01/03/24 12:31 Blood Culture - Preliminary Blood - Venous No growth after 48 hours. Discharge Plan Discharge Anticipated Discharge Date/Time: 01/08/24 13:22 Patient Disposition: Left Against Medical Advice Discharge Diagnosis: Sepsis due to UTI, Acute renal failure, Heart failure Referrals: Yonas Bustillo MD [Physician] - 1 Week (Call Wednesday for appointment) Donte Bautista MD [Physician] - 1 Week (Call Wednesday for follow up appointment) Physician,Rich J [Primary Care Provider] - 1 Week Discharge Medications: New isosorbide mononitrate 30 mg Tablet Extended Release 24 Hr 30 mg PO DAILY Qty: 90 0RF Protocol: Hold for SBP< HOLD for SBP < : 90 hydralazine 25 mg Tablet 25 mg PO TID Qty: 270 0RF Protocol: Hold for SBP< HOLD for SBP < : 90 (DME) FreeStyle Lite Strips Strip Qty: 100 0RF Rx Instructions: Test four times a day or as directed. alcohol swabs Pads, Medicated 1 pad TOPICAL QIDACHS Qty: 100 0RF Rx Instructions: Use four times a day or as directed. insulin lispro [Humalog KwikPen Insulin] 100 unit/mL insulin pen 0 sliding scale dose SUBCUT QIDACHS Qty: 15 0RF Rx Instructions: Blood Sugar: <150 - 0 units 151-200 - 2 units 201-250 - 4 units 251-300 - 6 units 301-350 - 8 units >350 - 10 units insulin glargine [Lantus Solostar U-100 Insulin] 100 unit/mL (3 mL) insulin pen 20 unit SUBCUT DAILY Qty: 15 1RF (DME) pen needle, diabetic 32 gauge x 1/4 needle Qty: 100 0RF Rx Instructions: Use four times a day or as directed. (DME) lancets [FreeStyle Lancets] 28 gauge misc Qty: 100 0RF Rx Instructions: Test four times a day or as directed. cefuroxime axetil 500 mg tablet 500 mg PO BID 10 Days Qty: 20 0RF (DME) lancets [FreeStyle Lancets] 28 gauge misc Qty: 100 0RF Rx Instructions: Test four times a day or as directed. (DME) FreeStyle Lite Strips Strip Qty: 100 0RF Rx Instructions: Test 3 times a day or as directed. Discontinued aspirin 325 mg Tablet 650 mg PO DAILY PRN (Reason: Pain) Discharge Orders: Discharge Order (Routine); Ordered 01/08/24 Ordered By: Duong Wray Diet: Diabetic diet Activity on Discharge: As tolerated Print Language: Sinhala Care Plan Goals: -Full recovery from sepsis -recovery from kidney failure -control of diabetes -control of heart failure Health Concerns: Acute kidney failure sepsis due to pyelonephritis Uncontrolled diabetes Heart failure Plan of Treatment: take all medication as prescribed follow up with your doctor in a week follow upw ith the kidney doctor follow up with the heart doctor Take Cefuroxime for UTI and Pyelonephritis take hydralazine, Lasix and Imdur as directed for your heart You understand your are leaving the hospital against medical advises and assumes all responsibilities for your health including but not limitted to your heart and kidney condition getting worse and even the possibility of . Feel free to return to the Emergency department any time if you feel unwell Assessment: see above Discharge Date/Time: 01/08/24 14:08
== END 2024-01-08 14:08 | disposition left against medical advice (07) | DRG 720 ==
LOC: HO.ED 04:37 → HO.EDOVER 05:00 → HO.IMC 05:22
PROVIDERS: Internal Medicine; Internal Medicine Nephrology; Internal Medicine Pulmonary Disease; Admitting Provider Internal Medicine; Emergency Provider Emergency Medicine Emergency Medical Services; Visit Provider Internal Medicine
DX: A41.9 Sepsis, unspecified organism (principal); N17.0 Acute kidney failure with tubular necrosis; I50.23 Acute on chronic systolic (congestive) heart failure; E87.21 Acute metabolic acidosis; I42.0 Dilated cardiomyopathy; I95.9 Hypotension, unspecified; I11.0 Hypertensive heart disease with heart failure; E66.2 Morbid (severe) obesity with alveolar hypoventilation; E88.09 Other disorders of plasma-protein metabolism, not elsewhere classified; N13.6 Pyonephrosis; E11.65 Type 2 diabetes mellitus with hyperglycemia; B96.20 Unspecified Escherichia coli [E. coli] as the cause of diseases classified elsewhere; E86.0 Dehydration; J98.11 Atelectasis; R19.7 Diarrhea, unspecified; Z71.3 Dietary counseling and surveillance; Z68.33 Body mass index [BMI] 33.0-33.9, adult; R65.20 Severe sepsis without septic shock; R09.02 Hypoxemia; Z20.822 Contact with and (suspected) exposure to COVID-19; Z79.4 Long term (current) use of insulin; Z79.899 Other long term (current) drug therapy
CPT/HCPCS: 0241U; 36415; 71045; 74176; 80048; 80053; 80179; 80307; 81001; 82010; 82533; 82803; 82947; 83036; 83605; 83690; 83735; 83880; 84484; 85025; 85027; 85730; 86160; 87040; 87077; 87086; 87186; 87205; 87493; 93005; 93306; 99285; C1758; J0696; J1200; J1885; J1940; J2405; J2543; J2765; J7120; P9047; Q9957

== ENCOUNTER → 2024-01-03 01:27 | Outpatient (BNV) | payer OTHER, SELFPAY | PROVIDERS: Admitting Provider Internal Medicine; Emergency Provider Emergency Medicine Emergency Medical Services; Visit Provider Internal Medicine Cardiovascular Disease | DX: R94.31 Abnormal electrocardiogram [ECG] [EKG] (principal) | CPT/HCPCS: 93010 ==

== ENCOUNTER 2024-01-03 04:48 | Outpatient (BNV) | payer OTHER, SELFPAY | END 2024-01-06 07:00 | PROVIDERS: Admitting Provider Internal Medicine; Emergency Provider Emergency Medicine Emergency Medical Services; Visit Provider Internal Medicine Cardiovascular Disease | DX: I51.89 Other ill-defined heart diseases (principal) | CPT/HCPCS: 93306 ==

== ENCOUNTER 2024-01-03 04:48 | Outpatient (BNV) | payer OTHER, SELFPAY | END 2024-01-04 17:32 | PROVIDERS: Admitting Provider Internal Medicine; Emergency Provider Emergency Medicine Emergency Medical Services; Visit Provider Internal Medicine Cardiovascular Disease | DX: R94.31 Abnormal electrocardiogram [ECG] [EKG] (principal) | CPT/HCPCS: 93010 ==

== ENCOUNTER → 2024-01-03 04:48 | Outpatient (BNV) | payer OTHER, SELFPAY | PROVIDERS: Admitting Provider Internal Medicine; Emergency Provider Emergency Medicine Emergency Medical Services; Visit Provider Internal Medicine | DX: A41.9 Sepsis, unspecified organism (principal); R65.20 Severe sepsis without septic shock; N10 Acute pyelonephritis | CPT/HCPCS: 99222 ==

== ENCOUNTER → 2024-01-03 04:48 | Outpatient (BNV) | payer OTHER, SELFPAY | PROVIDERS: Admitting Provider Internal Medicine; Emergency Provider Emergency Medicine Emergency Medical Services; Visit Provider Internal Medicine Cardiovascular Disease | DX: E11.65 Type 2 diabetes mellitus with hyperglycemia (principal); I42.9 Cardiomyopathy, unspecified | CPT/HCPCS: 99223; 99233 ==

== ENCOUNTER → 2024-01-03 04:48 | Outpatient (BNV) | payer OTHER, SELFPAY | PROVIDERS: Admitting Provider Internal Medicine; Emergency Provider Emergency Medicine Emergency Medical Services; Visit Provider Internal Medicine Nephrology | DX: N17.9 Acute kidney failure, unspecified (principal); N10 Acute pyelonephritis | CPT/HCPCS: 99223; 99232 ==

== ENCOUNTER → 2024-01-03 04:48 | Outpatient (BNV) | payer OTHER, SELFPAY | PROVIDERS: Admitting Provider Internal Medicine; Emergency Provider Emergency Medicine Emergency Medical Services; Visit Provider Internal Medicine | DX: N10 Acute pyelonephritis (principal); A41.9 Sepsis, unspecified organism; R65.20 Severe sepsis without septic shock; E11.65 Type 2 diabetes mellitus with hyperglycemia | CPT/HCPCS: 99223; 99232; 99233; 99239; 99429 ==

== ENCOUNTER → 2024-01-03 04:48 | Outpatient (BNV) | payer OTHER, SELFPAY | PROVIDERS: Admitting Provider Internal Medicine; Emergency Provider Emergency Medicine Emergency Medical Services; Visit Provider Internal Medicine Pulmonary Disease | DX: A41.9 Sepsis, unspecified organism (principal); R65.20 Severe sepsis without septic shock; N13.4 Hydroureter; E11.65 Type 2 diabetes mellitus with hyperglycemia | CPT/HCPCS: 99222 ==

== ENCOUNTER → 2024-01-03 04:48 | Outpatient (BNV) | payer OTHER, SELFPAY | PROVIDERS: Admitting Provider Internal Medicine; Emergency Provider Emergency Medicine Emergency Medical Services; Visit Provider Urology | DX: N10 Acute pyelonephritis (principal); R11.2 Nausea with vomiting, unspecified; N13.4 Hydroureter | CPT/HCPCS: 99222 ==